=== PATIENT | female | born 1995 | race Caucasian/White ===

== ENCOUNTER 2022-06-02 07:12 | Outpatient (CLI) | payer BC, SELFPAY ==
--- NOTE | 2022-06-02 08:59 | W.ANESCHARGE ---
Anesthesia Charges Start Date/Time Anesthesia Start Date: 06/02/22 Anesthesia Start Time: 08:05 Stop Date/Time Anesthesia Stop Date: 06/02/22 Anesthesia Stop Time: 08:48 Summary Emergency: No
--- NOTE | 2022-06-02 09:45 | W.ANESCHARGE ---
Anesthesia Charges Start Date/Time Anesthesia Start Date: 06/02/22 Anesthesia Start Time: 08:05 Stop Date/Time Anesthesia Stop Date: 06/02/22 Anesthesia Stop Time: 08:48 Summary Emergency: No
== END 2022-06-02 07:13 | disposition home or self-care (01) ==
PROVIDERS: PCP Physician Assistant; Visit Provider Internal Medicine Gastroenterology
DX: R10.13 Epigastric pain (principal); K22.89 Other specified disease of esophagus; R19.7 Diarrhea, unspecified; R11.2 Nausea with vomiting, unspecified; K52.9 Noninfective gastroenteritis and colitis, unspecified
CPT/HCPCS: 00813; 43239; 45380; 88305; J2250; J2704

== ENCOUNTER 2022-10-24 15:13 | Emergency (ER) | payer BC, SELFPAY ==
[2022-10-24 15:26] VITALS: BP 126/70; PULSE 98; RESP 16; TEMP 37; O2SAT 99; BMI 27.4
--- NOTE | 2022-10-24 16:08 | ED_ITS ---
HPI - General Adult General Chief complaint: Abdominal Pain Stated complaint: Vomiting, diarrhea Time Seen by Provider: 10/24/22 15:19 Source: patient Mode of arrival: ambulatory Limitations: no limitations History of Present Illness HPI narrative: 26-year-old female with reported history of IBS and endoscopy and colonoscopy within the last 6 months presents to the emergency department with periumbilical abdominal pain for the last 15 hours. Has not use Tylenol or ibuprofen but did try dose of Pepcid and heating pad with limited improvement in her symptoms. She had vomiting last was about 3 hours ago. She has also been having watery diarrhea, no blood. No sick contacts, no recent antibiotic use. No pertinent travel. Pain is achy, did get a little bit better after she vomited. It seems worse with movement per her report. She is currently on her period, denies chance of . No gynecological symptoms, discharge or dysuria. This feels different than her typical abdominal symptoms. She reports that she does use marijuana almost daily. Had been off of it for about a month a couple of months ago but has resumed. Does not feel like this is really related to her abdominal symptoms. She also is a smoker. No known sick contacts. Past medical history she states is benign. She denies long-term chronic illness besides irritable bowel syndrome. Denies any prescription medicines, there are no medication allergies that she is sensitive to Lexapro and also bees as well as chocolate and nickel. Socially marijuana use and regular tobacco use. No pertinent travel. ROS notable for the GI symptoms as above, otherwise denies times 12 systems. Related Data Home Medications Medication Instructions Recorded Confirmed No Known Home Medications 10/24/22 10/24/22 Allergies Allergy/AdvReac Type Severity Reaction Status Date / Time bee venom protein (honey bee) Allergy Verified 06/02/22 09:46 chocolate flavor Allergy Verified 06/02/22 09:46 Lexapro Allergy Uncoded 06/02/22 09:46 Nickel Allergy Uncoded 06/02/22 09:46 [facility] Social History Smoking Status: Unknown if ever smoked Exam Const: Vital Signs, click to edit/add: Vital Signs - 24 hr 10/24/22 15:26 Temperature 98.6 F Pulse Rate [Right Pulse Oximeter] 98 Respiratory Rate 16 Blood Pressure [Ri ght Upper Arm] 126/70 Pulse Oximetry 99 Oxygen Delivery Me thod Room Air Documenting provider has reviewed patient's vital signs: yes Common normals: no apparent distress General appearance: cooperative and well kempt Other: Appears mildly uncomfortable, nontoxic. Good historian. HENMT: Common normals: normocephalic Head and scalp: normocephalic Face and sinus: normal facial exam Mouth: oral and palatal mucosa normal Throat: posterior oropharynx normal Eye: Common normals: conjunctivae normal General eye: normal appearance of both eyes Conjunctiva: conjunctiva(e) normal Neck & C-Spine: Common normals: full ROM and no lymphadenopathy Resp: Common normals: normal respiratory effort, no use of accessory muscles and clear to auscultation bilaterally Effort & inspection: able to speak in complete sentences Auscultation: clear to auscultation bilaterally Cardio: Common normals: regular rate, regular rhythm, S1 normal heart sound, S2 normal heart sound, no murmurs and peripheral pulses 2+ throughout Rate: regular rate Rhythm: regular rhythm Heart sounds: S1 normal and S2 normal Peripheral pulses: pulses 2+ throughout GI: Common normals: Normal to inspection, nondistended, normoactive bowel sounds present, soft to palpation, no hepatosplenomegaly and no masses Palpation: soft and no hepatosplenomegaly Other: Tender to suprapubic region, a little bit more on the right than the left but not really the right lower quadrant. There was certainly no rebound tenderness or guarding. : Common normals: no CVA tenderness Bladder/kidney exam: no CVA tenderness Back & Pelvis: Common normals: no CVA tenderness Extremity: Common normals: normal to inspection and no pedal edema Neuro: Common normals: moves all extremities and no focal motor deficits Speech: speech normal Psych: Appearance: well kempt Attitude: engaged Activity/motor behavior: appropriate eye contact Mood and affect: euthymic mood Insight: insight good Judgement: judgment good Skin: Common normals: no rashes or lesions noted General skin exam: no rashes or lesions noted Course Vital Signs Vital signs: Initial Vital Signs Temperature 98.6 F 10/24/22 15:26 Temperature Source Temporal Artery Scan 10/24/22 15:26 Pulse Rate 98 10/24/22 15:26 Pulse Rhythm Regular 10/24/22 15:26 Respiratory Rate 16 10/24/22 15:26 Blood Pressure 126/70 10/24/22 15:26 Blood Pressure Mean 88 10/24/22 15:26 Pulse Oximetry 99 10/24/22 15:26 Oxygen Delivery Method Room Air 10/24/22 15:26 Vital Signs Temperature 98.6 F 10/24/22 15:26 Pulse Rate 98 10/24/22 15:26 Respiratory Rate 16 10/24/22 15:26 Blood Pressure 126/70 10/24/22 15:26 Pulse Oximetry 99 10/24/22 15:26 Oxygen Delivery Method Room Air 10/24/22 15:26 Temperature 98.6 F 10/24/22 15:26 Pulse Rate 98 10/24/22 15:26 Respiratory Rate 16 10/24/22 15:26 Blood Pressure 126/70 10/24/22 15:26 Pulse Oximetry 99 10/24/22 15:26 Oxygen Delivery Method Room Air 10/24/22 15:26 Medical Decision Making MDM Narrative Medical decision making narrative: Differential diagnosis including IBS, more likely gastroenteritis, cannot exclude appendicitis, urethral stone or other similar etiology. Pain is not colicky in nature. A UA would be contaminated by menstrual flow and may not be helpful for interpretation for stone. Vomiting and diarrhea are more suggestive of viral infectious process. I would recommend that we start with symptomatic treatment with Imodium and Zofran as well as a L of IV fluids. If her symptoms improved markedly and her blood work is reassuring, we could probably defer on CT scan. If these are abnormal, would recommend CT. She was agreeable to this plan after discussion of the risks and benefits of radiation. Update: Zofran was very effective for nausea and vomiting. She did have 1 further episode of diarrhea shortly after the Imodium was given. Pain is not worsening. We discussed the lab findings, she is reassured by the normal blood counts. Together, we elect to do a dose of Toradol and then discharge home with further instructions on Imodium, Zofran and instructions regarding return alarm symptoms. Expect symptoms to last another 2-3 days, okay to use [id number] Tylenol and ibuprofen as well. Lab Data Lab results reviewed: Yes I reviewed the patient's lab results Lab results narrative: Reassuring Labs: Lab Results 10/24/22 Range/Units 16:20 WBC 5.34 (4.50-11.00) K/uL RBC 4.36 (4.00-5.20) m/uL Hgb 13.7 (12.0-16.0) gm/dL Hct 40.8 (33.0-51.0) % MCV 94 (80-100) fL MCH 31 (26-34) pg MCHC 34 (32-36) gm/dL RDW Coeff of Courtney 12.8 (11.5-15.5) % Plt Count 199 (140-440) K/uL Neut % (Auto) 72.4 H (42.0-72.0) % Lymph % (Auto) 15.4 L (20-44) % Hunt % (Auto) 9.7 (0.0-11.0) % Eos % (Auto) 2.1 (0.0-7.0) % Baso % (Auto) 0.4 (0.0-3.0) % Neut # (Auto) 3.90 (1.7-7.0) K/uL Lymph # (Auto) 0.80 L (0.90-2.90) K/uL Hunt # (Auto) 0.50 (0.00-0.90) K/UL Eos # (Auto) 0.11 (0.00-0.50) K/uL Baso # (Auto) 0.02 (0.00-0.30) K/uL Sodium 136 (135-149) mmol/L Potassium 3.7 (3.6-5.1) mmol/L Chloride 106 (96-114) mmol/L Carbon Dioxide 24 (20-32) mmol/L BUN 8 (5-24) mg/dL Creatinine 0.5 (0.5-1.5) mg/dL Estimated Creat Clear 173.51 Estimated GFR 133 ml/min Glucose 90 (60-115) mg/dL Calcium 8.7 (8.4-10.6) mg/dL Total Bilirubin 0.4 (0.1-1.5) mg/dL AST 29 (12-35) U/L ALT 53 H (4-35) U/L Alkaline Phosphatase 76 (40-150) U/L C-Reactive Protein 1.2 H (0.5-1.0) mg/dL Total Protein 7.5 (6.0-8.3) g/dL Albumin 4.3 (3.3-5.0) g/dL Lipase 30 (23-300) U/L HCG, Qual Negative (Negative) Discharge Plan Discharge Clinical Impression: Gastroenteritis Patient Disposition: Home w/ Parent or Adult Condition: Improved Instructions: Gastroenteritis (DC) Additional Instructions: As we discussed, your symptoms seem consistent with gastroenteritis. There are no signs of elevated white count, elevated inflammatory markers or other blood work that would make me think there are any severe illnesses right now. It is best to avoid radiation from a CT if we do not see any other signs of appendicitis or other very worrisome problems today. Your given Imodium, a common diarrhea medication. This does take some time to kick in. You may take an additional 2 mg dose with every bout of diarrhea, up to 12 tablets per day. For most people, the initial dose will slow things down considerably. I will also give a prescription for some Zofran, a, anti nausea medicine that you were given here in the ED. You may use this up to every 6 hours as needed for vomiting. For pain, I recommend Tylenol and ibuprofen. Tylenol 1 not upset your stomach. You may use a 1000 mg every 6 hours as needed. I am okay with you using ibuprofen. It is better if there is a little bit of food in your belly when you take it. The nausea medicine should help with this. Ibuprofen dosing is 600 mg every 6 hours as needed. If the pain becomes severe, he start running a fever, or things fail to have any improvement in 48 hours, I would recommend re-evaluation. Activity Level: Activity as Tolerated Discharge Diet: Regular Prescriptions: No Action No Known Home Medications Follow Up/Referrals: Veronica Richard PA [Primary Care Provider] - Stand Alone Forms: AddIn Social Info Instructions
[2022-10-24] MEDS: LACTATED RINGERS 1000 ML 1,000 ML IV (16:18)
[2022-10-24] MEDS: LOPERAMIDE HCL 2 MG CAPSULE 4 MG PO (16:18)
[2022-10-24] MEDS: ONDANSETRON 2 MG/ML inj 4 MG IVP (16:18)
[2022-10-24 16:25] LABS: Basophils Absolute Auto 0.02 K/uL (0.00-0.30); Basophils Percent Auto 0.4 % (0.0-3.0); Eosinophils Absolute Auto 0.11 K/uL (0.00-0.50); Eosinophils Percent Auto 2.1 % (0.0-7.0); Hematocrit 40.8 % (33.0-51.0); Hemoglobin* 13.7 gm/dL (12.0-16.0); Lymphocytes Percent Auto 15.4 % (20-44); Mean Corpuscular HGB Conc 34 gm/dL (32-36); Mean Corpuscular Hemoglobin 31 pg (26-34); Mean Corpuscular Volume 94 fL (80-100); Monocytes Percent Auto 9.7 % (0.0-11.0); Neutrophils Percent Auto 72.4 % (42.0-72.0); Platelet Count* 199 K/uL (140-440); RDW Coefficient of Variation % 12.8 % (11.5-15.5); Red Blood Count 4.36 m/uL (4.00-5.20); White Blood Count* 5.34 K/uL (4.50-11.00)
[2022-10-24 16:28] LABS: Slide Review Reflex No
[2022-10-24 16:40] LABS: Albumin* 4.3 g/dL (3.3-5.0); Chloride* 106 mmol/L (96-114); Potassium* 3.7 mmol/L (3.6-5.1); Sodium* 136 mmol/L (135-149)
[2022-10-24 16:42] LABS: Bilirubin Total* 0.4 mg/dL (0.1-1.5); Creatinine* 0.5 mg/dL (0.5-1.5); Est. Creatinine Clearance* 173.51; Estimated Glomerular Filt Rate 133 ml/min
[2022-10-24 16:43] LABS: Alanine Aminotransferase* 53 U/L (4-35); Alkaline Phosphatase* 76 U/L (40-150); Aspartate Amino Transferase* 29 U/L (12-35); Blood Urea Nitrogen* 8 mg/dL (5-24); Carbon Dioxide* 24 mmol/L (20-32); Glucose* 90 mg/dL (60-115); Lipase* 30 U/L (23-300); Total Protein* 7.5 g/dL (6.0-8.3)
[2022-10-24 16:44] LABS: Calcium* 8.7 mg/dL (8.4-10.6)
[2022-10-24 16:46] LABS: C Reactive Protein* 1.2 mg/dL (0.5-1.0)
[2022-10-24 16:54] LABS: HCG Qualitative* Negative (Negative)
[2022-10-24] MEDS: KETOROLAC 15 MG/ML inj IVP (17:01)
[2022-10-24 17:38] VITALS: BP 126/70; PULSE 98; RESP 16; TEMP 37
== END 2022-10-24 17:30 | disposition home or self-care (01) ==
PROVIDERS: Emergency Provider Family Medicine; PCP Physician Assistant
DX: K52.9 Noninfective gastroenteritis and colitis, unspecified (principal)
CPT/HCPCS: 36415; 80053; 83690; 84703; 85025; 86140; 96374; 96375; 99283; 99284; A9270; J1885; J2405; J7120

== ENCOUNTER 2022-11-28 10:45 | Outpatient (RCR) | payer BC, SELFPAY | END 2023-01-26 09:13 | disposition home or self-care (01) | PROVIDERS: PCP Physician Assistant; Visit Provider Student in an Organized Health Care Education/Training Program | DX: M54.9 Dorsalgia, unspecified (principal); Z51.89 Encounter for other specified aftercare | CPT/HCPCS: 97032; 97110; 97140; 97163 ==

== ENCOUNTER 2023-01-08 06:50 | Emergency (ER) | payer BC, SELFPAY ==
[2023-01-08 07:10] VITALS: BP 122/65; PULSE 83; RESP 20; TEMP 36.7; O2SAT 98; BMI 30.4
--- NOTE | 2023-01-08 07:31 | ED.GENADULT ---
HPI - General Adult General Chief complaint: Unspecified Complaint, Adult Stated complaint: post termination Time Seen by Provider: 01/08/23 07:20 Source: patient and family Mode of arrival: ambulatory History of Present Illness HPI narrative: 27-year-old female with history of prior that was also placed by nausea presents to the emergency department with intractable nausea and vomiting. She reports that she had a visit at [facility] in [place] yesterday, a termination clinic. She was given a medication in the office and then took her home dose yesterday as was scheduled. She reports that she is due to take another medication today at 11:00 a.m., she does not know which medication it is, I am assuming misoprostol by her description. She reports she had some mild nausea prior to the procedure, this was common for her in a previous as well. She reports no fever, there is no abdominal pain. She has had a little bit of uterine cramping but no bleeding. She does want to go through with the but is unsure how she will manage the severe nausea and vomiting for the next day. She is also having loose stools. Vomiting started about 3-1/2 hours ago. She did try taking a 4 mg Zofran tablet that she was provided by the clinic with no significant improvement in her symptoms. She reports that she has a history of irritable bowel syndrome and is prone to nausea. It looks like she has had prior GI workup including endoscopy in the past. She does regularly smoke marijuana and is a cigarette smoker as well. No bloody vomit. LMP November 24 Past medical history notable for irritable bowel syndrome. She reports that she is not currently taking any prescription medications. She has multiple allergies. These are reviewed. ROS is notable for the GI symptoms and generalized symptoms as above only, otherwise denies times 12 systems. Related Data Previous Rx's Medication Instructions Recorded ondansetron 4 mg disintegrating 4 mg PO Q8H PRN nausea and 10/24/22 tablet vomiting #10 tabs Allergies Allergy/AdvReac Type Severity Reaction Status Date / Time bee venom protein (honey bee) Allergy Verified 06/02/22 09:46 chocolate flavor Allergy Verified 06/02/22 09:46 lorazepam AdvReac Verified 01/08/23 07:12 Lexapro Allergy Uncoded 11/28/22 09:46 Nickel Allergy Uncoded 06/02/22 09:46 PFSH [facility] Social History Smoking Status: Unknown if ever smoked Exam Const: Vital Signs, click to edit/add: Vital Signs - 24 hr 01/08/23 07:10 Temperature 98.1 F Pulse Rate [Left P ulse Oximeter] 83 Respiratory Rate 20 Blood Pressure [Ri ght Upper Arm] 122/65 Pulse Oximetry 98 Oxygen Delivery Me thod Room Air Documenting provider has reviewed patient's vital signs: yes Other: Anxious, frequent retching. Tearful. HENMT: Common normals: normocephalic and head/scalp atraumatic Head and scalp: normocephalic and atraumatic Eye: Common normals: conjunctivae normal General eye: normal appearance of both eyes Conjunctiva: conjunctiva(e) normal Neck & C-Spine: Common normals: no lymphadenopathy Resp: Common normals: normal respiratory effort, no use of accessory muscles and clear to auscultation bilaterally Effort & inspection: able to speak in complete sentences Auscultation: clear to auscultation bilaterally Cardio: Common normals: regular rate, regular rhythm, S1 normal heart sound, S2 normal heart sound and no murmurs Rate: regular rate Rhythm: regular rhythm Heart sounds: S1 normal and S2 normal GI: Common normals: Normal to inspection, nondistended, normoactive bowel sounds present, soft to palpation, non-tender, no hepatosplenomegaly and no masses Palpation: soft and no hepatosplenomegaly Extremity: Common normals: normal to inspection and no pedal edema Neuro: Gait (neuro): normal gait Motor exam: strength 5/5 throughout and no tremor noted Psych: Common normals: thought process normal Attitude: engaged Activity/motor behavior: appropriate eye contact Mood and affect: anxious Thought process: normal thought process Insight: insight good Judgement: judgment good Skin: Common normals: no rashes or lesions noted General skin exam: no rashes or lesions noted Course Course Hospital Course: No obvious signs of clinical dehydration, no hypotension or tachycardia. Etiology is very likely medication induced, she agrees. We discussed doing blood workup including workup for pancreatitis, gallbladder disease, etc.. We both agree that this is likely not necessary as she has an obvious etiology for her symptoms. She is planning to go through with the next dose of termination medication. This is important as it does widen our scope of safe medications to use to help treat the nausea. She will be given a L of LR, 4 mg of IV Zofran and 0.5 mg of IV lorazepam and we will reassess. Reevaluation(s) Time of Reevaluation #1: 08:16 Reevaluation #1: Heading over care to day shift partner. Awaiting clinical response from fluids, Zofran, Ativan. Vital Signs Vital signs: Initial Vital Signs Temperature 98.1 F 01/08/23 07:10 Temperature Source Temporal Artery Scan 01/08/23 07:10 Pulse Rate 83 01/08/23 07:10 Respiratory Rate 20 01/08/23 07:10 Blood Pressure 122/65 01/08/23 07:10 Blood Pressure Mean 84 01/08/23 07:10 Blood Pressure Position Sitting 01/08/23 07:10 Pulse Oximetry 98 01/08/23 07:10 Oxygen Delivery Method Room Air 01/08/23 07:10 Vital Signs Temperature 98.1 F 01/08/23 07:10 Pulse Rate 83 01/08/23 07:10 Respiratory Rate 20 01/08/23 07:10 Blood Pressure 122/65 01/08/23 07:10 Pulse Oximetry 98 01/08/23 07:10 Oxygen Delivery Method Room Air 01/08/23 07:10 Temperature 98.1 F 01/08/23 07:10 Pulse Rate 83 01/08/23 07:10 Respiratory Rate 20 01/08/23 07:10 Blood Pressure 122/65 01/08/23 07:10 Pulse Oximetry 98 01/08/23 07:10 Oxygen Delivery Method Room Air 01/08/23 07:10 Discharge Plan Discharge Prescriptions: No Action ondansetron 4 mg tablet,disintegrating 4 mg PO Q8H PRN (Reason: nausea and vomiting) Qty: 10 0RF Follow Up/Referrals: Veronica Richard PA [Referring] -
[2023-01-08] MEDS: ONDANSETRON 2 MG/ML inj 4 MG IVP (07:56)
[2023-01-08] MEDS: LACTATED RINGERS 1000 ML 1,000 ML IV (07:56)
[2023-01-08] MEDS: LORazepam 2 MG/ML inj 0.5 MG IVP (07:56)
[2023-01-08] MEDS: PANTOPRAZOLE SODIUM 40 MG INJ IVP (07:56)
--- NOTE | 2023-01-08 08:00 | ED.NURSE ---
Patient stated she has an allergy to lorazepam. MD ordered Lorazepam. Patient stated last time she took it, she felt dizzy. MD was okay with patient having. Patient agreed to have it as well.
[2023-01-08 08:23] VITALS: BP 108/60; PULSE 74; RESP 16; O2SAT 99
== END 2023-01-08 08:50 | disposition home or self-care (01) ==
PROVIDERS: Emergency Provider Emergency Medicine; PCP Student in an Organized Health Care Education/Training Program
DX: R11.0 Nausea (principal); O04.89 (Induced) termination of pregnancy with other complications
CPT/HCPCS: 96374; 96375; 99283; C9113; J2060; J2405; J7120

== ENCOUNTER 2023-03-15 06:30 | Emergency (ER) | payer BC, SELFPAY ==
--- NOTE | 2023-03-15 06:39 | ED_ITS ---
HPI - Alcohol General Chief Complaint: Alcohol/Intoxication Stated Complaint: drank last night- cant keep anything down Time Seen by Provider: 03/15/23 06:31 History of Present Illness HPI narrative: Patient is a 27-year-old woman who presents 640 in the morning after a night of drinking alcohol. She used marijuana last night as well. She states she is very dizzy and nauseous. She feels extremely dehydrated. She has no chest pain shortness a breath orthopnea no PND no abdominal pain. She is currently having her menses is having no other urogenital symptoms. Patient does not have any recent history of any trauma or falls. She states that she would like some IV fluids. No fever has been noted. Related Data Previous Rx's Medication Instructions Recorded ondansetron 4 mg disintegrating 4 mg PO Q8H PRN nausea and 10/24/22 tablet vomiting #10 tabs Allergies Allergy/AdvReac Type Severity Reaction Status Date / Time bee venom protein (honey bee) Allergy Verified 06/02/22 09:46 chocolate flavor Allergy Verified 06/02/22 09:46 lorazepam AdvReac Verified 01/08/23 07:12 Lexapro Allergy Uncoded 06/02/22 09:46 Nickel Allergy Uncoded 06/02/22 09:46 Review of Systems Status of ROS Reports: 10 or more systems reviewed and unremarkable except as noted in History and below [facility] Social History Smoking Status: Current every day smoker What tobacco products do you use: cigarettes Smoking packs per day: 0.25 Smoking cigarettes per day: 5.0 Do you use any of these nicotine containing products: Vaping Products Second hand tobacco smoke exposure: No How often do you have a drink containing alcohol: 2-4 times a month How many standard drinks containing alcohol do you have on a typical day: 3 or 4 How often do you have six or more drinks on one occasion: Never AUDIT-C Alcohol total score: 3 Non-prescribed substance use: marijuana (any form) service: No Exam Narrative: Exam Narrative: EXAM GENERAL: Patient appears comfortable and well. EYES: No scleral icterus. LYMPH: No supraclavicular or cervical lymphadenopathy. SKIN: Visible skin seen during exam normal or with benign process only. EXT: No dependent lower extremity pedal edema. HEART: Regular rate and rhythm with no murmurs, rubs, or gallops. LUNGS: Clear to auscultation bilaterally with no crackles or wheezes. ABD: Soft, non tender, non distended. PSYCH: Good eye contact, speech is not pressured. Const: Vital Signs, click to edit/add: Vital Signs - 24 hr 03/15/23 06:40 Temperature 97.8 F Pulse Rate [Pulse Oximeter] 80 Respiratory Rate 22 Blood Pressure [Ri ght Upper Arm] 111/67 Pulse Oximetry 98 Oxygen Delivery Me thod Room Air Course Course ED Course: Patient seen and examined. CBC comprehensive metabolic panel ETOH UA ordered. 1 L of normal saline 4 mg of IV Zofran ordered. Vital Signs Vital signs: Initial Vital Signs Temperature 97.8 F 03/15/23 06:40 Temperature Source Temporal Artery Scan 03/15/23 06:40 Pulse Rate 80 03/15/23 06:40 Respiratory Rate 22 03/15/23 06:40 Blood Pressure 111/67 03/15/23 06:40 Blood Pressure Mean 81 03/15/23 06:40 Blood Pressure Position Sitting 03/15/23 06:40 Pulse Oximetry 98 03/15/23 06:40 Oxygen Delivery Method Room Air 03/15/23 06:40 Vital Signs Temperature 97.8 F 03/15/23 06:40 Pulse Rate 80 03/15/23 06:40 Respiratory Rate 22 03/15/23 06:40 Blood Pressure 111/67 03/15/23 06:40 Pulse Oximetry 98 03/15/23 06:40 Oxygen Delivery Method Room Air 03/15/23 06:40 Temperature 97.8 F 03/15/23 06:40 Pulse Rate 80 03/15/23 06:40 Respiratory Rate 22 03/15/23 06:40 Blood Pressure 111/67 03/15/23 06:40 Pulse Oximetry 98 03/15/23 06:40 Oxygen Delivery Method Room Air 03/15/23 06:40 MDM - Alcohol MDM Narrative Medical decision making narrative: Patient is a 27-year-old woman who unfortunately is having significant nausea and vomiting the morning after a night of drinking alcohol and smoking marijuana. She who was treated with normal saline Zofran. Labs are reassuring. At this point were planning for a 2 L of normal saline and she will be checked on by my colleague. Likely be able to discharge home at that time. Differential Diagnosis Differential diagnosis: Likely alcohol withdrawal delirium, alcohol intoxication and alcohol withdrawal syndrome Lab Data Labs: Lab Results 03/15/23 Range/Units 06:40 WBC 7.39 (4.50-11.00) K/uL RBC 3.98 L (4.00-5.20) m/uL Hgb 12.8 (12.0-16.0) gm/dL Hct 37.5 (33.0-51.0) % MCV 94 (80-100) fL MCH 32 (26-34) pg MCHC 34 (32-36) gm/dL RDW Coeff of Courtney 12.8 (11.5-15.5) % Plt Count 208 (140-440) K/uL Neut % (Auto) 53.5 (42.0-72.0) % Lymph % (Auto) 34.0 (20-44) % [place] % (Auto) 8.9 (0.0-11.0) % Eos % (Auto) 2.7 (0.0-7.0) % Baso % (Auto) 0.8 (0.0-3.0) % Neut # (Auto) 3.95 (1.7-7.0) K/uL Lymph # (Auto) 2.51 (0.90-2.90) K/uL [place] # (Auto) 0.70 (0.00-0.90) K/UL Eos # (Auto) 0.20 (0.00-0.50) K/uL Baso # (Auto) 0.06 (0.00-0.30) K/uL Abs Immat Gran (auto) 0.01 (0.00-0.30) K/uL Imm/Tot Granulo (auto) 0.1 % Sodium 141 (135-149) mmol/L Potassium 4.0 (3.6-5.1) mmol/L Chloride 107 (96-114) mmol/L Carbon Dioxide 23 (20-32) mmol/L Anion Gap 11 (7-15) mEq/L BUN 11 (5-24) mg/dL Creatinine 0.6 (0.5-1.5) mg/dL Estimated Creat Clear 143.33 Estimated GFR 127 ml/min Glucose 90 (60-115) mg/dL Calcium 9.6 (8.4-10.6) mg/dL Total Bilirubin 0.4 (0.1-1.5) mg/dL AST 30 (12-35) U/L ALT 24 (4-35) U/L Alkaline Phosphatase 64 (40-150) U/L Total Protein 8.0 (6.0-8.3) g/dL Albumin 4.5 (3.3-5.0) g/dL Discharge Plan Discharge Clinical Impression: Alcoholic intoxication Patient Disposition: Home, Self-Care Condition: Stable Instructions: Alcohol Intoxication (ED) Activity Level: No Restrictions Discharge Diet: Regular Prescriptions: No Action ondansetron 4 mg tablet,disintegrating 4 mg PO Q8H PRN (Reason: nausea and vomiting) Qty: 10 0RF Follow Up/Referrals: DIANE COLE DO [Primary Care Provider] - Stand Alone Forms: MyHealth Info Instructions
[2023-03-15 06:40] VITALS: BP 111/67; PULSE 80; RESP 22; TEMP 36.6; O2SAT 98; BMI 28.9
[2023-03-15] MEDS: ONDANSETRON 2 MG/ML inj 4 MG IVP (06:47)
[2023-03-15] MEDS: 0.9 % SODIUM CHLORIDE 1000 ml 1,000 ML IV (06:47)
[2023-03-15 06:53] LABS: Basophils Absolute Auto 0.06 K/uL (0.00-0.30); Basophils Percent Auto 0.8 % (0.0-3.0); Eosinophils Percent Auto 2.7 % (0.0-7.0); Hematocrit 37.5 % (33.0-51.0); Hemoglobin* 12.8 gm/dL (12.0-16.0); Immature Granulocytes Abs Auto 0.01 K/uL (0.00-0.30); Immature Granulocytes Pct Auto 0.1 %; Lymphocytes Absolute Auto 2.51 K/uL (0.90-2.90); Mean Corpuscular HGB Conc 34 gm/dL (32-36); Mean Corpuscular Hemoglobin 32 pg (26-34); Mean Corpuscular Volume 94 fL (80-100); Monocytes Percent Auto 8.9 % (0.0-11.0); Neutrophils Absolute Auto 3.95 K/uL (1.7-7.0); Neutrophils Percent Auto 53.5 % (42.0-72.0); Platelet Count* 208 K/uL (140-440); RDW Coefficient of Variation % 12.8 % (11.5-15.5); Red Blood Count 3.98 m/uL (4.00-5.20); White Blood Count* 7.39 K/uL (4.50-11.00)
[2023-03-15 06:57] LABS: Slide Review Reflex No
[2023-03-15 07:27] LABS: Chloride* 107 mmol/L (96-114); Sodium* 141 mmol/L (135-149)
[2023-03-15 07:28] LABS: Alanine Aminotransferase* 24 U/L (4-35); Albumin* 4.5 g/dL (3.3-5.0); Alkaline Phosphatase* 64 U/L (40-150); Anion Gap 11 mEq/L (7-15); Aspartate Amino Transferase* 30 U/L (12-35); Bilirubin Total* 0.4 mg/dL (0.1-1.5); Blood Urea Nitrogen* 11 mg/dL (5-24); Calcium* 9.6 mg/dL (8.4-10.6); Carbon Dioxide* 23 mmol/L (20-32); Creatinine* 0.6 mg/dL (0.5-1.5); Est. Creatinine Clearance* 143.33; Estimated Glomerular Filt Rate 127 ml/min; Glucose* 90 mg/dL (60-115)
[2023-03-15 08:00] LABS: Appearance Urine Clear (Clear); Bilirubin Urine Negative (Negative); Blood Urine 2+ (Negative); Color Urine Yellow (Yellow); Glucose Urine Negative (Negative); Ketones Urine Negative (Negative); Leukocyte Esterase Urine Trace (Negative); Nitrite Urine Negative (Negative); Protein Urine Trace (Negative); Specific Gravity Urine 1.015 (1.000-1.030); Urobilinogen Urine 0.2 (0.2-1.0); pH Urine 8.5 (5.0-8.5)
[2023-03-15 08:02] VITALS: BP 112/74; PULSE 88; RESP 24; O2SAT 99
[2023-03-15] MEDS: HALOPERIDOL 5 MG/ML INJ IV (08:16)
[2023-03-15 08:17] LABS: Amorphous Sediment Urine Few; Bacteria Urine Few; Squamous Epithelial Cell Urine Few (None-Few); WBC Urine 0-2 (0-5)
[2023-03-15 08:30] VITALS: BP 124/63; PULSE 90; RESP 26; O2SAT 99
[2023-03-15 08:30] LABS: Ethanol* < 0.01 % (0.01-0.03)
[2023-03-15 09:00] VITALS: BP 115/60; PULSE 80; RESP 20; O2SAT 100
== END 2023-03-15 09:07 | disposition home or self-care (01) ==
PROVIDERS: Emergency Provider Internal Medicine; PCP Student in an Organized Health Care Education/Training Program
DX: F10.129 Alcohol abuse with intoxication, unspecified (principal)
CPT/HCPCS: 36415; 80053; 81003; 81015; 82077; 85025; 87086; 87186; 96361; 96374; 96375; 99283; 99284; J1630; J2405; J7030

== ENCOUNTER 2023-10-15 05:51 | Emergency (ER) | payer BC, SELFPAY ==
[2023-10-15 06:03] VITALS: BP 118/84; PULSE 89; RESP 20; TEMP 36.8; O2SAT 99; BMI 30.4
[2023-10-15 06:33] LABS: Ur HCG Qualitative* POSITIVE (Negative)
[2023-10-15] MEDS: PANTOPRAZOLE SODIUM 40 MG INJ IVP (06:44)
[2023-10-15] MEDS: 0.9 % SODIUM CHLORIDE 1000 ml 1,000 ML IV (06:44)
--- NOTE | 2023-10-15 06:54 | ED_ITS ---
HPI - Nausea/Vomiting/Diarrhea General Chief complaint: Nausea/Vomiting Stated complaint: 6 weeks , vomiting, dizzy Time Seen by Provider: 10/15/23 05:57 Source: patient Mode of arrival: ambulatory Limitations: no limitations History of Present Illness HPI Narrative: 27-year-old female presents the emergency department for evaluation of vomiting in early . Reports that she has chronic nausea and is a daily marijuana user. She thinks that she is getting dehydrated, feels lightheaded and slightly dizzy. No fever. No trauma or injury. No neurological changes otherwise. She reports that she has had 2 prior pregnancies, both electively terminated. This current is a planned . She had her OB intake yesterday, reports that labs were drawn. She sees her provider in 2 we eks. She has a supply of Zofran from previous chronic nausea and vomiting episodes. She tried taking 1 at 2:00 a.m. and then another at 3:15 a.m. with no significant improvement in her symptoms. Can not hold anything down, even water. Has tried lizbeth and this was also ineffective. No vaginal bleeding. No fever abdominal pain. She is using famotidine daily as well. Has not yet been prescribed any other medications to help prevent vomiting in . She states that ?the medications for marijuana nausea have never worked for her?. I do not have documented evidence that she has or has not responded to atypical antipsychotics or other similar agents. Past medical history notable for chronic nausea and she says suspects that she may have POTS, but has not had any confirmatory testing. Regularly uses marijuana and nicotine. ROS notable for the GI, dizziness and fatigue as described above, otherwise denies times 12 systems. Related Data Home Medications Medication Instructions Recorded Confirmed cholecalciferol (vitamin D3) 50 50 mcg PO DAILY 10/15/23 10/15/23 mcg (2,000 unit) capsule epinephrine 0.3 mg/0.3 mL 0.3 mg IM PRN allergies 10/15/23 10/15/23 injection, auto-injector famotidine 40 mg tablet 40 mg PO DAILY 10/15/23 10/15/23 Previous Rx's Medication Instructions Recorded doxylamine 10 mg-pyridoxine (vit 1 tab PO BID #60 tabs 10/15/23 B6) 10 mg tablet,delayed release ondansetron 4 mg disintegrating 4 mg PO Q8H PRN nausea and 10/15/23 tablet vomiting #30 tabs Allergies Allergy/AdvReac Type Severity Reaction Status Date / Time bee venom protein (honey bee) Allergy Severe Anaphylaxis Verified 10/15/23 06:10 chocolate flavor Allergy Intermediate Throat Verified 10/15/23 06:10 Swelling escitalopram [From Lexapro] Allergy Mild Hives Verified 10/15/23 06:09 nickel Allergy Mild Hives Verified 10/15/23 06:11 lorazepam AdvReac Mild Unknown Verified 10/15/23 06:12 [facility] Medical History Irritable bowel syndrome with both constipation and diarrhea ?K58.2 - Mixed irritable bowel syndrome (ICD-10) Migraine headache ?G43.909 - Migraine, unspecified, not intractable, without status migrainosus (ICD-10) Marijuana use ?F12.90 - Cannabis use, unspecified, uncomplicated (ICD-10) Herpes ?B00.9 - Herpesviral infection, unspecified (ICD-10) Depression ?F32.A - Depression, unspecified (ICD-10) Asthma ?J45.909 - Unspecified asthma, uncomplicated (ICD-10) Anxiety ?F41.9 - Anxiety disorder, unspecified (ICD-10) Surgical History History of esophagogastroduodenoscopy (EGD) ?Z98.890 - Other specified postprocedural states (ICD-10) History of colonoscopy ?Z98.890 - Other specified postprocedural states (ICD-10) Social History Smoking Status: Current some day smoker What tobacco products do you use: cigarettes Smoking packs per day: 0.25 Smoking cigarettes per day: 5.0 Do you use any of these nicotine containing products: Vaping Products Second hand tobacco smoke exposure: Yes How often do you have a drink containing alcohol: never How many standard drinks containing alcohol do you have on a typical day: 3 or 4 AUDIT-C Alcohol total score: 1 Non-prescribed substance use: marijuana (any form) service: No Exam Const: Vital Signs, click to edit/add: Vital Signs - 24 hr 10/15/23 06:03 Temperature 98.3 F Pulse Rate [Right Pulse Oximeter] 89 Respiratory Rate 20 Blood Pressure [Ri ght Upper Arm] 118/84 Pulse Oximetry 99 Oxygen Delivery Me thod Room Air Documenting provider has reviewed patient's vital signs: yes Common normals: alert Other: Frequent retching but good insight. Polite and conversational. HENMT: Common normals: normocephalic and oropharynx normal Head and scalp: normocephalic Other: Mucous membranes dry but no pallor. Eye: Common normals: conjunctivae normal General eye: normal appearance of both eyes Conjunctiva: conjunctiva(e) normal Resp: Common normals: normal respiratory effort and clear to auscultation bilaterally Effort & inspection: able to speak in complete sentences Auscultation: clear to auscultation bilaterally Cardio: Common normals: regular rate, regular rhythm, S1 normal heart sound, S2 normal heart sound and no murmurs Rate: regular rate Rhythm: regular rhythm Heart sounds: S1 normal and S2 normal GI: Common normals: Normal to inspection, nondistended, normoactive bowel sounds present, soft to palpation, non-tender, no hepatosplenomegaly and no masses Palpation: soft and no hepatosplenomegaly Neuro: Sensorium/orientation: alert Speech: speech normal Motor exam: no movement abnormalities noted Psych: Appearance: grossly normal Attitude: engaged Insight: insight good Judgement: judgment good Skin: Common normals: no rashes or lesions noted General skin exam: no rashes or lesions noted Course Course ED Course: Chronic nausea and vomiting, now in early . Suspect that this is going to be a long few months for her. Reports that her labs yesterday were normal. These must have been drawn Gabriella li, I do not have access to these. She is afebrile, not tachycardic or hypotensive. I do not recommend that we repeat these labs. Will start normal saline. She has already had 8 mg of Zofran, I do not think giving an additional IV dose will be beneficial. Will give 10 of Reglan, 40 of Protonix and then a L of LR. Will prescribe doxylamine/B 6 at discharge and some additional Zofran. She is encouraged to get in with her primary provider sooner to discuss ongoing nausea and vomiting if her symptoms have not markedly improved by Thursday. She may require infusion center for regular IV fluids. Less likely gastroenteritis which would certainly resolve within a few days. I am hopeful that this is the case for her. Typical alarm symptoms reviewed that would warrant ED presentation, typical early warnings. Follow-up with primary care provider as soon as possible to discuss long-term plan and especially if the doxylamine/B 6 is not covered by her insurance. Reevaluation(s) Time of Reevaluation #1: 08:00 Reevaluation #1: Patient still having vomiting. Did not respond to Zofran, Reglan, fluids, omeprazole. She took the fluids well and is not showing tachycardia or hyper bow tension. Unfortunately, as I counseled her, she may continue to have nausea and vomiting and she will need to make a long-term plan with her Ob provider regarding management of this throughout the . Continue trying to push fluids follow-up in the emergency department as needed if she is unable to tolerate fluids for more than 24 hours. Vital Signs Vital signs: Initial Vital Signs Temperature 98.3 F 10/15/23 06:03 Temperature Source Temporal Artery Scan 10/15/23 06:03 Pulse Rate 89 10/15/23 06:03 Respiratory Rate 20 10/15/23 06:03 Blood Pressure 118/84 10/15/23 06:03 Blood Pressure Mean 95 10/15/23 06:03 Blood Pressure Position Sitting 10/15/23 06:03 Pulse Oximetry 99 10/15/23 06:03 Oxygen Delivery Method Room Air 10/15/23 06:03 Vital Signs Temperature 98.3 F 10/15/23 06:03 Pulse Rate 89 10/15/23 06:03 Respiratory Rate 20 10/15/23 06:03 Blood Pressure 118/84 10/15/23 06:03 Pulse Oximetry 99 10/15/23 06:03 Oxygen Delivery Method Room Air 10/15/23 06:03 Temperature 98.3 F 10/15/23 06:03 Pulse Rate 89 10/15/23 06:03 Respiratory Rate 20 10/15/23 06:03 Blood Pressure 118/84 10/15/23 06:03 Pulse Oximetry 99 10/15/23 06:03 Oxygen Delivery Method Room Air 10/15/23 06:03 Medications Administered Medications: Discontinued Medications Generic Name Dose Route Start Last Admin Trade Name Freq PRN Reason Stop Dose Admin Sodium Chloride 1,000 mls @ 1,000 mls/hr 10/15/23 06:24 10/15/23 06:44 0.9 % Sodium Chloride 1000 Ml IV 10/15/23 07:23 1,000 mls/hr .Q1H ASTRID Administration Metoclopramide HCl 10 mg/ 102 mls @ 306 mls/hr 10/15/23 06:57 10/15/23 07:07 Sodium Chloride IVPB 10/15/23 06:58 306 mls/hr ONCE ONE Administration Lactated Ringer's 1,000 mls @ 1,000 mls/hr 10/15/23 06:59 10/15/23 07:30 Lactated Ringers 1000 Ml IV 10/15/23 07:58 1,000 mls/hr .Q1H ONE Administration Pantoprazole Sodium 40 mg 10/15/23 06:37 10/15/23 06:44 Pantoprazole Sodium 40 Mg Inj IVP 10/15/23 06:38 40 mg ONCE ONE Administration MDM - Nausea/Vomiting/Diarrhea Medical Records Attestation: I reviewed the patient's medical records. Lab Data Attestation: I reviewed the patient's lab results. Lab results narrative: test positive as expected Labs: Lab Results 10/15/23 Range/Units 06:25 Urine HCG, Qual POSITIVE H (Negative) Discharge Plan Discharge Clinical Impression: Vomiting during Patient Disposition: Home w/ Parent or Adult Condition: Stable Instructions: Nausea and Vomiting in (ED) Additional Instructions: As we discussed, I suspect that your per early is worsening your already existing chronic nausea and vomiting. I hope this is just a stomach flu but I am more concerned that this will be an ongoing issue for you for the next couple of months. Your given IV fluid, Reglan and Protonix in the emergency department today. I think it is important that we start a long-term plan to help you manage dehydration and nutrition. I have prescribed doxylamine/vitamin B6. This is a very safe medication that is often prescribed as a nausea and vomiting preventer in . It may cause some sleepiness. I have prescribed twice daily but you may find that it makes you too sleepy and you can only tolerate taking it at night. Once daily is better than nothing. If you still have vomiting, you may use Zofran up to 3 tablets daily. Continue taking your famotidine. cupola patcher some [id number] omeprazole and take this once daily also. If you take your famotidine in the morning, take your omeprazole and night, try to stagger these. I do not recommend any nicotine or marijuana products in . They are unlikely to help your nausea. Please make a follow-up appointment with your primary care provider right away to discuss options for managing your nausea and vomiting or a plan for outpatient IV fluids if this is required. If you have bloody vomit, bloody stools, heavy vaginal bleeding or severe weakness, you should come back to the emergency room. Activity Level: Activity as Tolerated Discharge Diet: Regular Prescriptions: New doxylamine-pyridoxine (vit B6) 10-10 mg tablet,delayed release (DR/EC) 1 tab PO BID Qty: 60 1RF ondansetron 4 mg tablet,disintegrating 4 mg PO Q8H PRN (Reason: nausea and vomiting) Qty: 30 1RF No Action famotidine 40 mg tablet 40 mg PO DAILY epinephrine 0.3 mg/0.3 mL auto-injector 0.3 mg IM PRN cholecalciferol (vitamin D3) 50 mcg (2,000 unit) capsule 50 mcg PO DAILY Follow Up/Referrals: DIANE COLE DO [Primary Care Provider] - Stand Alone Forms: [employer] Info Instructions
[2023-10-15] MEDS: METOCLOPRAMIDE HCL 10 MG in 0.9 % SODIUM CHLORIDE 100 ml 100 ML 306 MG IVPB (07:07)
--- OUTSIDE RECORDS SUMMARY | 2023-10-15 07:20 | XMS_ITS | Referral Summary ---
Author Name Unknown Organization [facility] Address [address] [place] [address]. [place] [address] Care Team Providers Care Communications Officer Name Role Phone Clinic, [facility] Primary Care Provider Allergies Active Allergy Reactions Criticality Noted Date Comments Nickel Hives 01/27/2020 Medications Medication Sig Dispensed Refills Start Date End Date Status EPINEPHrine (ANY BX GENERIC EQUIV) 0.3 MG/0.3ML injection 2-pack Inject 0.3 mLs (0.3 mg) into the muscle once as needed for anaphylaxis 1 each 1 01/27/2020 Active predniSONE (DELTASONE) 20 MG tablet Take two tablets (= 40mg) each day for 5 (five) days 10 tablet 01/27/2020 Active Social History Tobacco Use Types Packs/Day Years Used Date Smoking Tobacco: Never Assessed Adolescent Education Answer Date Record ed Getting School Help Needed Not on file 03/28 Sex and Gender Information Value Date Recorded Sex Assigned at Not on file Gender Identity Not on file Sexual Orientation Not on file Last Filed Vital Signs Vital Sign Reading Time Taken Comments Blood Pressure 133/86 01/28/2023 2:25 PM CDT Pulse 82 01/28/2023 2:25 PM CDT Temperature 36.6 ??C (97.9 ??F) 01/28/2023 10:28 AM C DT Respiratory Rate 20 01/28/2023 10:28 AM CDT Oxygen Saturation 100% 01/28/2023 3:09 PM CDT Inhaled Oxygen Concentration - - Weight 70.3 kg (155 lb) 01/27/2020 12:06 PM CDT Height 172.7 cm (5' 8) 01/27/2020 12:06 PM CDT Body Mass Index 23.57 01/27/2020 12:06 PM CDT Plan of Treatment Not on file Care Teams Communications Officer Relationship Specialty Start Date End Date Clinic, [facility] [address] [place] [address] PCP - General 01/27/20
--- OUTSIDE RECORDS SUMMARY | 2023-10-15 07:20 | XMS_ITS | Clinical Summary ---
Author Name Unknown Organization [facility] Address [address] [place] [address]. [place] [address] Care Team Providers Care Orthodontist Assistant Name Role Phone Clinic, [facility] Primary Care Provider Allergies Active Allergy Reactions [...] 01/27/2020 12:06 PM CDT Plan of Treatment Health Maintenance Due Date Last Done Comments ADVANCE CARE PLANNING 1996 ANNUAL REVIEW OF HM ORDERS 1996 YEARLY PREVENTIVE VISIT 1996 HIV SCREENING 12/02/2011 HPV IMMUNIZATION (1 - 3-dose series) 12/02/2011 HEPATITIS C SCREENING 2014 PAP 2017 COVID-19 Vaccine (3 - season) 2023 11/29/2020, 11/01/2020 INFLUENZA VACCINE (#1) 2023 PHQ-2 (once per calendar year) 2023 DTAP/TDAP/TD IMMUNIZATION (8 - Td or Tdap) 06/14/2029 06/14/2019, 02/26/2009, 02/21/2002, Additional history exists HEPATITIS B IMMUNIZATION Completed 998, 04/07/1997, 02/03/1997 IPV IMMUNIZATION Completed 02/21/2002, 09/1996, 04/07/1997, Additional history exists MENINGITIS IMMUNIZATION Aged Out No l onger eligible based on patient's age to complete this topic Pneumococcal Vaccine: Pediatrics (0 to 5 Years) and At-Risk Patients (6 to 64 Years) Aged Out No longer eligible based on patient's age to complete this topic RSV MONOCLONAL ANTIBODY Aged Out No l onger eligible based on patient's age to complete this topic Care Teams Orthodontist Assistant Relationship Specialty Start Date End Date [facility], [address] [address] PCP - General 01/27/20
--- OUTSIDE RECORDS SUMMARY | 2023-10-15 07:20 | XMS_ITS | Clinical Summary ---
Author Name Unknown Organization [facility] Address [place], [place] [address] Care Team Providers Care Maintenance Operator Name Role Phone [facility] Primary Care Provider Unavail able Allergies Active Allergy Reactions Criticality Noted Date Comments Bee Venom Protein (Honey Bee) Throat Swelling/Closing High 09/06/2021 Chocolate Flavor Nausea And Vomiting,Throat Swelling/Closing High 08/27/2018 Escitalopram Anxiety 02/11/2022 Possible hives Nickel Rash 08/27/2018 Medications Medication Sig Dispensed Refills Start Date End Date Status hydrOXYzine HCL (ATARAX) 25 mg tabletIndications:G eneralized anxiety disorder Take 1 Tablet (25 mg) by mouth every 8 hours if needed for Anxiety. 30 Tablet 4 Active Additional Information Patient not taking.Reported on 10/12/2023 busPIRone (BUSPAR) 5 mg tabletIndications:G eneralized anxiety disorder Take 1 Tablet (5 mg) by mouth two times daily for 14 days, THEN 2 Tablets (10 mg) two times daily. 388 Tablet 4 12/14/19 24 Active Additional Information Patient not taking.Reported on 10/12/2023 EPINEPHrine (EPIPEN) 0.3 mg/0.3 mL auto-injectorIndica tions:Anaphylaxis, sequela Inject 0.3 mg intramuscular each time if needed for Allergic Reaction. 2 Each 4 Active Additional Information Patient not taking.Reported on 10/12/2023 cholecalciferol, Vitamin D3, (Vitamin D-3) 5,000 unit tab tabletIndications:V itamin D deficiency Take 1 Tablet (5,000 units) by mouth once daily. 90 Tablet 3 4 Active ondansetron (ZOFRAN ODT) 4 mg disintegrating tabletIndications:M igraine syndrome Place 1 Tablet (4 mg) on the tongue every 8 hours if needed for Nausea/Vomiting. 30 Tablet 4 Active famotidine (PEPCID) 40 mg tabletIndications:N ausea Take 1 Tablet (40 mg) by mouth once daily. 90 Tablet 3 4 Active Additional Information Patient not taking.Reported on 10/12/2023 medication order composer Vitamin d3 2000 unit capsules 4 Active etonogestreL-ethiny l estradioL (NUVARING) vaginal ring Insert 1 ring into the vagina every 4 weeks. Insert 1 ring vaginally and leave in place for 3 consecutive weeks, then remove for 1 week. Repeat with new ring. 3 ring 3 0 10/14/19 24 Discontinu ed(*Patien t states no longer taking) cyclobenzaprine (FLEXERIL) 10 mg tablet Take 10 mg by mouth 3 times daily if needed. 2 10/01/19 24 Discontinu ed(Reorder (E-cancel not sent)) meclizine (ANTIVERT) 25 mg tabletIndications:B enign paroxysmal positional vertigo, unspecified laterality Take 1 Tablet (25 mg) by mouth 3 times daily if needed for Vertigo. 30 Tablet 2 10/14/19 24 Discontinu ed(*Patien t states no longer taking) triamcinolone (ARISTOCORT; KENALOG) 0.1 % creamIndications:Ra sh Apply topically to affected area(s) three times daily. 80 g 2 10/14/19 24 Discontinu ed(*Patien t states no longer taking) polyethylene glycol-electrolyte (GOLYTELY) 236-22.74-6.74 -5.86 gram suspensionIndicatio ns:Encounter for screening colonoscopy Drink 2 liters (half of the bottle) the day before colonoscopy and 2 liters (remaining prep) 4-6 hours prior to colonoscopy appointment. 4000 mL 2 10/14/19 24 Discontinu ed(*Patien t states no longer taking) omeprazole (PRILOSEC) 20 mg Delayed-Release capsuleIndications: Nausea and vomiting, unspecified vomiting type Take 1 Capsule (20 mg) by mouth once daily before a meal. 90 Capsule 1 2 10/01/19 24 Discontinu ed(*Med complete/R egimen complete/L evel of care change) valACYclovir (VALTREX) 500 mg tabletIndications:G enital herpes simplex, unspecified site Take 1 Tablet (500 mg) by mouth two times daily. Take for 3 days with each genital herpes outbreak. 6 Tablet 3 2 10/14/19 24 Discontinu ed(*Patien t states no longer taking) hyoscyamine sublingual (LEVSIN SL) 0.125 mg sublIndications:Irr itable bowel syndrome with both constipation and diarrhea Place 1 Tablet (0.125 mg) under the tongue every 4 hours if needed (for ibs symptoms). 30 Tablet 1 2 10/14/19 24 Discontinu ed(*Patien t states no longer taking) SUMAtriptan (IMITREX) 25 mg tabletIndications:M igraine syndrome Take 1 Tablet (25 mg) by mouth every 2 hours if needed for Migraine. Give at minimum 2hrs apart. Max Dose: 200mg per 24hrs. 10 Tablet 3 3 10/14/19 Discontinu ed(*Patien t states no longer taking) ondansetron (ZOFRAN ODT) 4 mg disintegrating tabletIndications:M igraine syndrome Place 1 Tablet (4 mg) on the tongue every 8 hours if needed for Nausea/Vomiting. 30 Tablet 3 10/01/19 Discontinu ed(Reorder (E-cancel not sent)) methylPREDNISolone (Medrol, Phong,) 4 mg tabletIndications:M ild intermittent asthma without complication Take by mouth as instructed per packaging. 21 Tablet 3 10/14/19 24 Discontinu ed(*Patien t states no longer taking) cyclobenzaprine (FLEXERIL) 10 mg tabletIndications:C hronic low back pain with right-sided sciatica, unspecified back pain laterality Take 1 Tablet (10 mg) by mouth 3 times daily if needed for Muscle Spasm. 30 Tablet 4 10/14/19 24 Discontinu ed(*Patien t states no longer taking) Active Problems Problem Noted Date Diagnosed Date 10/14/2023 Overview: Estimated Date of Delivery: 06/08/24 Patient's last menstrual period was 09/02/2023 (approximate). GBS: 28wk labs: Last Tdap: 2019 Last Flu vaccine: none OB Labs: Allergies Allergen Reactions Bee Venom Protein (Honey Bee) Throat Swelling/Closing Chocolate Flavor Nausea And Vomiting and Throat Swelling/Closing Lexapro [Escitalopram] Anxiety Possible hives Nickel Rash OB History Para Term AB Living 3 0 0 0 2 0 SAB IAB Ectopic Multiple Live Births 0 2 0 0 0 # Outcome Date GA Lbr Daniel/2nd Weight Sex Delivery Anes PTL Lv 3 Current 2 IAB 01/2023 1 IAB 2018 Past Medical History: . Date Anxiety Asthma exercise induced - inhaler prn Depression Herpes Marijuana use 2010 Migraine headache Past Surgical History: . Laterality Date COLONOSCOPY DIAGNOSTIC 06/02/2022 normal, repeat at age 46 ESOPHAGOGASTRODUODENOSCOPY 06/02/2022 normal NO PAST SURGERIES Problems (from 10/14/23 to present) No problems associated with this episode. Ana Collier RN ....10/14/2023 4:12 PM Irritable bowel syndrome wit h both constipation and diarrhea 06/19/2022 Genital herpes simplex 12/12/2021 Mild intermittent asthma without complication Marijuana use 07/06/2009 Anxiety Estimated Date of Delivery Comme nts Yes 06/08/2024 Encounters Date Type Department Care Team Description 10/14/2023 3:10 PM CDT OB Encounter [facility] [address] [place] [address] Education (RN OB intake) 10/14/2023 2:15 PM CDT Office Visit [facility] [address] [place] [address] Marylou Dowell MD Establish Care ( care, 6 weeks) 10/14/2023 Travel 10/12/2023 2:50 PM CDT Telemedicine [address] [phone] O'Angely, Moiz Browne MD Consult (IBS, syncope); Telehealth 10/11/2023 Travel 10/01/2023 10:35 AM CDT Office Visit [facility] [address] [facility] [address] Mina Doss, DO Follow Up (About the diagnosis you talked about last time Pots); Concerns (About joint pain. becoming more of a problem) 10/01/2023 Travel 09/01/2023 2:05 PM VIROLOGIST Office Visit [facility] [address] [place] [address] Mina Doss, DO Abdominal Pain (IBS - has been back to work and has been having fainting and lightheadedness - work seems to make it worse ) 09/01/2023 Travel from Last 3 Months Immunizations Name Administration Dates Next Due COVID-19 vaccine (Moderna 100mcg/0.5mL) PF, MDV 11/29/2020,11/01/2020 DTaP 02/21/2002, 8,06/07/1997,1996,02/03/1997 Hepatitis B, Unspecified 03/30/1998,04/07/1997,0 02/03/1997 Hib Conjugate, Unspecified 03/30/1998,,04/07/1997,1996 MMR 02/21/2002,03/30/1998 Polio Virus, Unspecified 02/21/2002,1996,04/07/1997,1996 Tdap 06/14/2019,02/26/2009 Varicella Vaccine 02/26/2009 Family History Medical History Relation Name Comments Addiction problem Brother 1 Autism Brother 2 No Known Problems Father Cancer Maternal Grandfather Hypertension Maternal Grandfather No Known Problems Maternal Grandmother No Known Problems Mother No Known Problems Paternal Grandfather No Known Problems Paternal Grandmother Anesthesia Problem No Family History Relation Name Status Comments Brother 1 Alive Brother 2 Alive Father Alive Maternal Grandfather Maternal Grandmother Alive Mother Alive Paternal Grandfather Paternal Grandmother Social History Tobacco Use Types Packs/Day Years Used Date Smoking Tobacco: Every Day Cigarettes 0.2 8.1 Started: 09/23/2022; Last attempted to quit: 12/18/2021 Smokeless Tobacco: Never Tobacco Cessation:Ready to Q uit: Yes; Counseling Given: Yes Comments:2-3 per day Alcohol Use Standard Drinks/Week Comments Not Currently 0 (1 standard drink = 0.6 oz pur e alcohol) PHQ-2 Answer Date Recorded PHQ-2 TOTAL SCORE 3 10/14/2023 Social Connections Answer Date Recorded Frequency of Communication with Friends and Fami ly 0 10/12/2023 Financial Resource Strain Answer Date R ecorded Difficulty of Paying Living Expenses 3 10/12/2023 Difficulty of Paying Living Expenses Not on file 10/12/2023 Food Insecurity Answer Date Recorded Worried About Running Out of Food in the Last Ye ar 1 10/12/2023 Transportation Needs Answer Date Record ed Lack of Transportation (Medical) 1 10/12/2023 Housing Stability Answer Date Recorded Unable to Pay for Housing in the Last Year 1 10/12/2023 Estimated Date of Delivery Comme nts Yes 06/08/2024 Sex and Gender Information Value Date Recorded Sex Assigned at Not on file Gender Identity Not on file Sexual Orientation Not on file Obstetrics History Para Term AB IAB SAB Ectopic Multiple Livin g Live Births 3 2 2 Date Outcome GA Total Labor Labor/2nd/3rd Weight Sex Delivery Anes PTL Maria Ines A1 A5 Name Cl in 2018 IAB 01/22 23 IAB Current Summary Episode Dates Number of Fetuses Estimated Date of Delivery 10/14/2023 - Present (10/15/2023) 06/08/2024 (based on Alternate EJ Entry) Dating Summary Based On EJ GA Diff Last Menstrual Period on 09/02/2023 (Approximate ) 06/08/2024 Same Alternate EJ Entry 06/08/2024 Working Comment:Date entered prior t o episode creation Notes Progress Notes - OB Encounte r - 10/14/2023 - GA:6w0d 10/14/2023 - 6w0d - Ana Collier, RN SUBJECTIVE: Geraldine Henley is a 27 y.o. female, , who presents for confirmation and ob education. Patient presents to the clinic with partner. Had positive test at home. This was Unplanned, Desired. Patient was not on contraception. 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 MENSTRUAL HISTORY: Patient's last menstrual period was 09/02/2023 (approximate).: Cycle Regularity: regular, every 28-30 days Past Medical History: . Date Anxiety Asthma exercise induced - inhaler prn Depression Herpes Marijuana use 2010 Migraine headache OB History Para Term AB Living 3 2 SAB IAB Ectopic Multiple Live Births 2 # Outcome Date GA Lbr Daniel/2nd Weight Sex Delivery Anes PTL Lv 3 Current 2 IAB 01/2023 1 IAB 2018 5P'S SUBSTANCE ABUSE SCREEN FOR ALCOHOL, DRUGS AND TOBACCO: Did any of your parents have a problem with using alcohol or drugs? No Do any of your friends (peers) have problems with drug or alcohol use? No Does your partner have a problem with drug or alcohol use? No Before you knew you were , how often did you drink beer, wine, wine coolers or liquor or use any kind of drug? Alcohol rarely- daily marijuana In the past month, how often did you drink beer, wine, wine coolers or liquor or use any kind of drug? Daily marijuana How much did you smoke, vape or use tobacco or nicotine in any form before you knew you were ? 1/2 pack before , 2-3 a day now Genetic Screening Genetic Screening/Teratology Counseling- Includes patient, baby's father, or anyone in either family with: Patient's age 35 years or older as of estimated date of delivery: No Thalassemia (Kazakh, Uzbek, Mediterranean, or background): MCV less than 80: No Neural tube defect (Meningomyelocele, Spina bifida, or Anencephaly): No Congenital heart defect: No Down syndrome: No Abel-Sachs (Ashkenazi Congregational, Cajun, Yakut [place]): No Jerry disease (Ashkenazi Congregational): No Familial dysautonomia (Ashkenazi Congregational): No Sickle cell disease or trait (): No Hemophilia or other blood disorders: No Muscular dystrophy: No Cystic fibrosis: No [place]'s chorea: No Intellectual disability and/or autism: Yes (Comment: baby's parents siblings and paternal grandfather) If yes, was the person tested for Fragile X?: No Other inherited genetic or chromosomal disorder: Yes (Comment: baby's father and his brother- mild cleft lip?) Maternal metabolic disorder (eg. Type 1 diabetes, PKU): No Patient or baby's father had child with defects not listed above: No Recurrent loss, or a stillbirth: No Medications (including supplements, vitamins, herbs, or OTC drugs)/illicit/recreational drugs/alcohol since last menstrual period: Yes If yes, agent(s) and strength/dosage: daily marijuana smoker CURRENT MEDICATIONS: Current Outpatient Medications Medication Sig busPIRone (BUSPAR) 5 mg tablet Take 1 Tablet (5 mg) by mouth two times daily for 14 days, THEN 2 Tablets (10 mg) two times daily. (Patient not taking: Reported on 10/12/2023) cholecalciferol, Vitamin D3, (Vitamin D-3) 5,000 unit tab tablet Take 1 Tablet (5,000 units) by mouth once daily. EPINEPHrine (EPIPEN) 0.3 mg/0.3 mL auto-injector Inject 0.3 mg intramuscular each time if needed for Allergic Reaction. (Patient not taking: Reported on 10/12/2023) famotidine (PEPCID) 40 mg tablet Take 1 Tablet (40 mg) by mouth once daily. (Patient not taking: Reported on 10/12/2023) hydrOXYzine HCL (ATARAX) 25 mg tablet Take 1 Tablet (25 mg) by mouth every 8 hours if needed for Anxiety. (Patient not taking: Reported on 10/12/2023) medication order composer Vitamin d3 2000 unit capsules ondansetron (ZOFRAN ODT) [address] 1 Tablet (4 mg) on the tongue every 8 hours if needed for Nausea/Vomiting. No current facility-administered medications for this visit. Medications have been reviewed by me and are current to the best of my knowledge and ability. ALLERGIES: Bee venom protein (honey bee), Chocolate flavor, Lexapro [escitalopram], and Nickel OBJECTIVE: LMP 09/02/2023 (Approximate) ,URINE (no units) Date Value 11/22/2017 Negative ASSESSMENT/PLAN: No diagnosis found. EDUCATION/PATIENT INSTRUCTIONS - Advised patient to start/continue vitamin. - Discussed risk of using alcohol, tobacco, other drugs in . - Discussed healthy lifestyle in . - Provided copy of [facility] book and book inserts, discussed [id number] medications, and follow up. - Encouraged patient to call clinic at [phone] with any vaginal bleeding, fluid leaking from vagina, severe abdominal pain, nausea with severe vomiting, fever higher than 100.4F, painful urination, headache not relieved by Tylenol, or other concerns - labs completed with today's visit. - Patient informed to schedule 1st trimester dating ultrasound between 7-10 weeks. - Initial OB appointment with FP/OB scheduled. PHQ-9, and COVID-19 vaccine discussion to be completed at this visit. Future Appointments Date Time Provider Department Center 10/15/2023 1:00 PM Edouard Waldron L Ac NFLDAC NF 10/22/2023 7:00 AM Talia Montelongo NP NFLDPS NFLD 12/09/2023 1:30 PM ANW TREADMILL RM 7 ANWHCD ANW 01/01/2024 10:35 AM Mina Doss DO NFLDFP NFLD Ana Collier RN .................... 10/14/2023 3:28 PM Last Filed Vital Signs Vital Sign Reading Time Taken Comments Blood Pressure 111/69 10/14/2023 2:19 PM CDT Pulse 78 10/14/2023 2:19 PM CDT Temperature 37.5 ??C (99.5 ??F) 11/25/2022 11:32 AM C DT Respiratory Rate 14 05/14/2022 12:06 PM VIROLOGIST Oxygen Saturation 98% 10/14/2023 2:19 PM CDT Inhaled Oxygen Concentration - - Weight 91.2 kg (201 lb) 10/14/2023 2:19 PM CDT Height 170.2 cm (5' 7) 10/14/2023 2:19 PM CDT Body Mass Index 31.48 10/14/2023 2:19 PM CDT Plan of Treatment Upcoming Encounters Date Type Department Care Team (Late st Contact Info) Description 10/15/2023 1:00 PM CDT Procedure Only [facility] [address] [place] [address] Edouard Waldron L Ac [address] [place] [address] 10/22/2023 7:00 AM CDT Telemedicine [facility] [address] [place] [address] Talia Montelongo, KENNY [address] [place] [address] 11/04/2023 4:00 PM CDT Ancillary Procedure [facility] [address] [place] [address] 11/11/2023 3:55 PM CDT OB Encounter [facility] [address] [place] [address] Marylou Dowell MD [address] [place] [address] 12/09/2023 1:30 PM CDT Appointment [facility] [address] [place] [address] 01/01/2024 10:35 AM CDT Office Visit [facility] [address] [place] [address] Mina Doss DO [address] [place] [address] Health Maintenance Due Date Last Done Comments Pneumococcal series for age 6-64 (1 of 2 - PCV) 2002 HIV for age 15-65 12/02/2011 HPV series for age 9-26 (1 - 3-dose series) 12/02/2011 Hepatitis C screening for ag e 18-79 2014 Pap test for age 21-65 05/25/2020 05/25/2017 COVID-19 vaccine series ( season) 2023 11/29/2020, 11/01/2020 Influenza for age 9-49 03/06/2024 BMI (ht and wt on same day) for age 18+ 10/13/2024 10/14/2023, 05/27/2022, 12/30/2021, Additional history exists Depression screening for age 12+ 10/13/2024 10/14/2023, 05/16/2022, 04/07/2022, Additional history exists Tetanus booster 06/14/2029 06/14/2019, 02/26/2009 Tdap Completed 06/14/2019, 02/26/2009 Procedures Procedure Name Priority Date/Time Associated Diagnosis Comments UA W/ SEDIMENT EXAM REFLEXED PER CRITERIA Routine 10/14/2023 4:22 PM CDT confirmed by positive urine test TYPE & SCREEN Routine 10/14/2023 4:20 PM CDT confirmed by positive urine test CBC W PLT NO DIFF Routine 10/14/2023 4:2 0 PM CDT confirmed by positive urine test HLA B 27 DISEASE ASSOCIATION Routine 10/01/2023 11:16 AM CDT Chronic low back pain with right-sided sciatica, unspecified back pain laterality POTS (postural orthostatic tachycardia syndrome) ANTINUCLEAR ANTIBODY BY IFA Routine 10/01/2023 11:16 AM CDT Chronic low back pain with right-sided sciatica, unspecified back pain laterality POTS (postural orthostatic tachycardia syndrome) CBC WITH AUTO DIFFERENTIAL Routine 09/01/2023 3:30 PM VIROLOGIST Tachycardia VITAMIN D 25 (DEFICIENCY) Routine 09/01/2023 3:30 PM VIROLOGIST Tachycardia ZINC SERUM Routine 09/01/2023 3:30 PM VIROLOGIST Tachycardia CBC WITH AUTO DIFFERENTIAL Routine 09/01/2023 3:30 PM VIROLOGIST Tachycardia TSH WITH REFLEX Routine 09/01/2023 3:30 PM VIROLOGIST Tachycardia FEATHEREDGER AND REDUCER MACHINE THIN PREP PAP SCREEN IMAGED Routine 05/25/2017 4:49 PM VIROLOGIST Cervical cancer screening from Last 3 Months or Most Recently Relevant to Health Maintenance Results * (ABNORMAL) URINALYSIS W REFLEX MICROSCOPIC IF POSITIVE [09864.2] (10/14/2023 4:22 PM CDT) COLOR Yellow Yellow Color 10/14/2023 4:30 PM CDT [facility] CLARITY Clear Clear Clarity 10/14/2023 4:30 PM CDT [facility] SPECIFIC GRAVITY,URINE >=1.030(A) 1.010, 1.015, 1.020, 1.025 10/14/2023 4:30 PM CDT [facility] PH,URINE 6.0 6.0, 7.0, 8.0, 5.5, 6.5, 7.5, 8.5 10/14/2023 4:30 PM CDT [facility] UROBILINOGEN, QUALITATIVE Normal Normal EU/dl 10/14/2023 4:30 PM CDT [facility] PROTEIN, URINE Negative Negative mg/dL 10/14/2023 4:30 PM CDT [facility] GLUCOSE, URINE Negative Negative mg/dL 10/14/2023 4:30 PM CDT [facility] KETONES,URINE Trace(A) Negative mg/dL 10/14/2023 4:30 PM CDT [facility] BILIRUBIN,URI NE Negative Negative 10/14/2023 4:30 PM CDT [facility] OCCULT BLOOD,URINE Negative Negative 10/14/2023 4:30 PM CDT [facility] NITRITE Negative Negative 10/14/2023 4:30 PM CDT [facility] LEUKOCYTE ESTERASE Negative Negative 10/14/2023 4:30 PM CDT [facility] Urine URINE SPECIMEN / Unknown Non-Blood / Unknown 10/14/2023 4:22 PM CDT 10/14/2023 4:22 PM CDT Marylou Dowell MD URINE [facility] [address] [place] [address], [place] [phone] * TYPE AND SCREEN (10/14/2023 4:20 PM CDT) Pathologist [facility] ABORH A Rh Positive 10/14/2023 11:03 PM CDT [facility] ANTIBODY SCREEN Negative Negative 10/14/2023 11:03 PM CDT [facility] SPECIMEN EXPIRATION DATE/TIME 10/17/23 23:59 10/14/2023 11:03 PM CDT [facility] Blood BLOOD SPECIMEN / Unknown Venipuncture / Unknown 10/14/2023 4:20 PM CDT 10/14/2023 4:22 PM CDT aMrylou Dowell MD BLOOD BANK [facility] [address] [place] [address], [place] [phone] * (ABNORMAL) CBC W PLT NO DIFF (10/14/2023 4:20 PM CDT) [facility] WHITE BLOOD COUNT 8.9 4.5 - 11.0 thou/cu mm 10/14/2023 4:28 PM CDT [facility] RED BLOOD COUNT 3.68(L) 4.00 - 5.20 mil/cu mm 10/14/2023 4:28 PM CDT [facility] HEMOGLOBIN 11.9(L) 12.0 - 16.0 g/dL 10/14/2023 4:28 PM CDT [facility] HEMATOCRIT 34.5 33.0 - 51.0 % 10/14/2023 4:28 PM CDT [facility] MCV 94 80 - 100 fL 10/14/2023 4:28 PM CDT [facility] MCH 32.3 26.0 - 34.0 pg 10/14/2023 4:28 PM CDT [facility] MCHC 34.5 32.0 - 36.0 g/dL 10/14/2023 4:28 PM CDT [facility] RDW 12.8 11.5 - 15.5 % 10/14/2023 4:28 PM CDT [facility] PLATELET COUNT 220 140 - 440 thou/cu mm 10/14/2023 4:28 PM CDT [facility] MPV 11.0 6.5 - 11.0 fL 10/14/2023 4:28 PM CDT [facility] Blood BLOOD SPECIMEN / Unknown Venipuncture / Unknown 10/14/2023 4:20 PM CDT 10/14/2023 4:22 PM CDT Marylou Dowell MD HEMATOLOGY [facility] [address] [place] [address], * ANTINUCLEAR ANTIBODY BY IFA (10/01/2023 11:16 AM CDT) ANTINUCLEAR ANTIBODY (AGATHA) Negative Negative 10/02/2023 12:39 PM CDT [facility] Blood BLOOD SPECIMEN / Unknown Venipuncture / Unknown 10/01/2023 11:16 AM CDT 10/01/2023 11:18 AM CDT Narrative [facility] - 10/02/2023 12:39 PM CDT Method: AGATHA screen performed by (IFA) on HEP-2 substrate, IgG Mina Doss DO CHEMISTRY [facility] [address] [place] [address], * HLA B 27 DISEASE ASSOCIATION (10/01/2023 11:16 AM CDT) HLA B27 Negative 10/09/2023 11:10 AM CDT [facility] ([facility]) Comment: HLA-B*27 Negative B27 allele interpretation for all loci based on IMGT/HLA database version 3.51.0 This test was developed and its performance characteristics determined by [employer] (formerly [employer]). ??It has not been cleared or approved by the Food and Drug Administration. [facility] CLIA ID Number [id number] THis test was performed using Polymerase Chain Reaction (PCR) and Sequence Specific Oligonucleotide Probes (SSOP) technique. Sequence Based Typing (SBT) may be used as a supplemental method when necessary. If you have questions, please call [facility] customer service at or email at [email or web address]. Blood BLOOD SPECIMEN / Unknown Venipuncture / Unknown 10/01/2023 11:16 AM CDT 10/01/2023 11:18 AM CDT Narrative [facility] ([facility]) - 10/09/2023 11:10 AM CDT Performed at: ??01 - [facility] [address] [place], [place] ??[id number] Charter Coordinator: Vikki Clark PhD, Phone: ??[phone] Mina Doss DO SEND OUTS Performing Organization Address [facility] de Phone Number [facility] ([facility]) [address] [place] [address], * ZINC SERUM (09/01/2023 3:30 PM VIROLOGIST) [facility] ZINC BLOOD 74 44 - 115 ug/dl 09/03/2023 2:43 PM VIROLOGIST [employer] Comment: Analysis performed by Inductively-Coupled Plasma/Mass ? Spectrometry (ICP/MS). ? This test was developed and its performance characteristics determined by [employer] (formerly [employer]). It has not been cleared or approved by the Food and Drug Administration. Blood BLOOD SPECIMEN / Unknown Venipuncture / Unknown 09/01/2023 3:30 PM VIROLOGIST 09/01/2023 3:31 PM VIROLOGIST Mina Doss DO SEND OUTS [employer] [address] [place] [address], * CBC WITH AUTO DIFFERENTIAL (09/01/2023 3:30 PM VIROLOGIST) [facility] WHITE BLOOD COUNT 7.8 4.5 - 11.0 thou/cu mm 09/01/2023 3:38 PM VIROLOGIST [facility] RED BLOOD COUNT 4.17 4.00 - 5.20 mil/cu mm 09/01/2023 3:38 PM [facility] HEMOGLOBIN 13.5 12.0 - 16.0 g/dL 09/01/2023 3:38 PM [facility] HEMATOCRIT 39.4 33.0 - 51.0 % 09/01/2023 3:38 PM [facility] MCV 95 80 - 100 fL 09/01/2023 3:38 PM [facility] MCH 32.4 26.0 - 34.0 pg 09/01/2023 3:38 PM [facility] MCHC 34.3 32.0 - 36.0 g/dL 09/01/2023 3:38 PM [facility] RDW 12.8 11.5 - 15.5 % 09/01/2023 3:38 PM [facility] PLATELET COUNT 206 140 - 440 thou/cu mm 09/01/2023 3:38 PM [facility] MPV 11.0 6.5 - 11.0 fL 09/01/2023 3:38 PM [facility] % NEUT 59.7 % 09/01/2023 3:38 PM [facility] % LYMPH 27.5 % 09/01/2023 3:38 PM [facility] % MONO 9.3 % 09/01/2023 3:38 PM VIROLOGIST [facility] % EOS 3.1 % 09/01/2023 3:38 PM [facility] % BASO 0.4 % 09/01/2023 3:38 PM [facility] ABSOLUTE NEUTROPHILS 4.7 1.7 - 7.0 thou/cu mm 09/01/2023 3:38 PM [facility] ABSOLUTE LYMPHOCYTES 2.2 0.9 - 2.9 thou/cu mm 09/01/2023 3:38 PM VIROLOGIST [facility] ABSOLUTE MONOCYTES 0.7 <0.9 thou/cu mm 09/01/2023 3:38 PM VIROLOGIST [facility] ABSOLUTE EOSINOPHILS 0.2 <0.5 thou/cu mm 09/01/2023 3:38 PM VIROLOGIST [facility] ABSOLUTE BASOPHILS 0.0 <0.3 thou/cu mm 09/01/2023 3:38 PM VIROLOGIST [facility] Blood BLOOD SPECIMEN / Unknown Venipuncture / Unknown 09/01/2023 3:30 PM VIROLOGIST 09/01/2023 3:31 PM VIROLOGIST Mina Doss DO HEMATOLOGY Performing Organization Address [facility]/ZIP Co de Phone Number [facility] [address] [place] [address], [place] [phone] * TSH WITH REFLEX (09/01/2023 3:30 PM VIROLOGIST) TSH 1.98 0.27 - 4.20 uIU/mL 09/02/2023 3:39 PM VIROLOGIST [facility] Blood BLOOD SPECIMEN / Unknown Venipuncture / Unknown 09/01/2023 3:30 PM VIROLOGIST 09/01/2023 3:31 PM VIROLOGIST [facility]ative [facility] 09/02/2023 3:39 PM VIROLOGIST In Adults, TSH values between 5.00 and 10.00 uIU/ml do not necessarily indicate the presence of Hypothyroidism. Correlation with clinical findings such as presence of goiter and/or Thyroperoxidase (TPO) Antibody may be helpful. For more information please refer to REBECA 2004; 291: 228-238. Mina Doss DO CHEMISTRY [facility] [address] [place] [address], [place] * (ABNORMAL) VITAMIN D 25 (DEFICIENCY) (09/01/2023 3:30 PM VIROLOGIST) VITAMIN D TOTAL 19.6(L) 20.0 - 80.0 ng/mL 09/02/2023 3:38 PM VIROLOGIST [facility] Blood BLOOD SPECIMEN / Unknown Venipuncture / Unknown 09/01/2023 3:30 PM VIROLOGIST 09/01/2023 3:31 PM VIROLOGIST Narrative [facility] - 09/02/2023 3:38 PM VIROLOGIST ? Vitamin D Status Deficiency: ? <20 ng/mL Insufficiency: ?20-29 ng/mL Sufficiency: ?30-80 ng/mL Possible Toxicity: ??>80 ng/mL Based on [employer] recommendations Biotin supplements may cause clinically significant interference for this test assay. ??If interference is suspected, it is strongly recommended that biotin is discontinued for at least one week prior to retesting. Mina Doss DO SEND OUTS [facility] [address] [place] [address], * FEATHEREDGER AND REDUCER MACHINE THIN PREP PAP SCREEN IMAGED (05/25/2017 4:49 PM VIROLOGIST) [facility] Case Report Gynecologic Cytology Report ? Case: [id number] ? Authorizing Provider: ??Aureliano Seymour MD ??Collected: ? 05/25/20171648 ? Ordering Location: ? [facility] ?? Received: ?05/25/20171648 ? Clinic ? First Screen: ?Veronica Ventura ? Specimen: ?FEATHEREDGER AND REDUCER MACHINE ThinPrep Vial Screening, Cervical ? 06/05/2017 2:32 PM VIROLOGIST [facility] ENTRAL LABORATORY INTERPRETATION/ RESULT NEGATIVE FOR INTRAEPITHELIAL LESION OR MALIGNANCY (NIL) (none) 06/05/2017 2:32 PM [facility] IMEN ADEQUACY Satisfactory for evaluation Endocervical component present 06/05/2017 2:32 PM VIROLOGIST [facility] ENTRAL LABORATORY HPV REQUEST HPV if ASCUS 06/05/2017 2:32 PM VIROLOGIST [employer] [facility] EN[facility]AL LABORATORY Date of LMP 05/25/2017 06/05/2017 2:32 PM [facility] Last Pap Date first pap 06/05/2017 2:32 PM [facility] Last Pap Result First Pap/Unknown 2:32 PM VIROLOGIST [facility] Abnormal Pap or [place] Bx in last 5 years No 06/05/2017 2:32 PM [facility]IROLOGIST [facility] Menstrual Status Regular Periods 06/05/2017 2:32 PM [facility]IROLOGIST [facility] ENTRAL [facility] [place] Bx Done Today No 06/05/2017 2:32 PM [facility] Additional Information None given 06/05/2017 2:32 PM [facility]- ENTRAL LABORATORY Automated Review Successful 06/05/2017 2:32 PM VIROLOGIST [facility] ENTRAL LABORATORY Comment:Specimen processed s uccessfully by automated sugarcane research technician device, ThinPrep Imaging System, [employer] Note The pap test is a screening technique, not a diagnostic procedure. ??It is used primarily to screen for squamous cancers and precursor lesions. ??Published studies have shown that it is subject to both false negative and false positive results. ??The pap test should not be used as the sole means to diagnose or exclude pre-malignant and malignant lesions. Interpreted at [facility] (Central Lab, [facility], [facility], [facility], [facility], [facility] [place], [facility]) 06/05/2017 2:32 PM VIROLOGIST [facility] ENTRAL LABORATORY Other (Cervical) 05/25/2017 4:49 PM VIROLOGIST 05/25/2017 4:49 PM VIROLOGIST Aureliano Seymour MD PATHOLOGY/CYTOLO GY [facility] [address] [place] [address], from Last 3 Months or Most Recently Relevant to Health Maintenance Care Teams Maintenance Operator Relationship Specialty Start Date End Date Hellen Chu PCP - General 11/28/22
[2023-10-15 07:25] VITALS: BP 100/56; PULSE 95; RESP 18; O2SAT 100
[2023-10-15] MEDS: LACTATED RINGERS 1000 ML 1,000 ML IV (07:30)
== END 2023-10-15 08:29 | disposition home or self-care (01) ==
PROVIDERS: Emergency Provider Family Medicine; PCP Student in an Organized Health Care Education/Training Program
DX: R11.10 Vomiting, unspecified (principal); Z3A.01 Less than 8 weeks gestation of pregnancy
CPT/HCPCS: 81025; 96365; 96375; 99283; 99284; C9113; J2765; J7030; J7120

== ENCOUNTER 2023-12-30 14:30 | Outpatient (RCR) | payer BC, SELFPAY | END 2024-04-28 23:59 | disposition home or self-care (01) | PROVIDERS: PCP Student in an Organized Health Care Education/Training Program; Visit Provider Student in an Organized Health Care Education/Training Program | DX: M54.41 Lumbago with sciatica, right side (principal); G89.29 Other chronic pain; Q79.60 Ehlers-Danlos syndrome, unspecified; R53.1 Weakness; Z51.89 Encounter for other specified aftercare | CPT/HCPCS: 97110; 97140; 97162 ==

== ENCOUNTER 2024-03-17 10:47 | Outpatient (CLI) | payer BC, SELFPAY ==
--- OUTSIDE RECORDS SUMMARY | 2024-03-17 10:53 | XMS_ITS | Clinical Summary ---
Author Organization [facility] Address [place], [place] [address] Care Team Providers Care Sales Recruitment Specialist Name Role Phone Marylou Little MD Primary Care Prov ider Allergies Active Allergy Reactions Criticality Noted Date Comments Bee Venom Protein (Honey Bee) Throat Swelling/Closing High 09/06/2021 Chocolate Flavor Nausea And Vomiting,Throat Swelling/Closing High 08/27/2018 Escitalopram Anxiety 02/11/2022 Possible hives Nickel Rash 08/27/2018 Medications Medication Sig Dispensed Refills Start Date End Date Status EPINEPHrine (EPIPEN) 0.3 mg/0.3 mL auto-injectorIndicat ions:Anaphylaxis, sequela Inject 0.3 mg intramuscular each time if needed for Allergic Reaction. 2 Each 09/01/2023 Active cholecalciferol, Vitamin D3, (Vitamin D-3) 5,000 unit tab tabletIndications:Vi tamin D deficiency Take 1 Tablet (5,000 units) by mouth once daily. 90 Tablet 3 09/03/2023 Active ondansetron (ZOFRAN ODT) 4 mg disintegrating tabletIndications:Mi graine syndrome Place 1 Tablet (4 mg) on the tongue every 8 hours if needed for Nausea/Vomiting. 30 Tablet 10/01/2023 Active famotidine (PEPCID) 40 mg tabletIndications:Na usea Take 1 Tablet (40 mg) by mouth once daily. 90 Tablet 3 10/01/2023 Active medication order composer Vitamin d3 2000 unit capsules 10/12/2023 Active vitamin chewable (NATACHEW) 29 mg iron- 1 mg chew Chew 1 Tablet by mouth once daily. Active doxylamine-pyridoxin e, vit B6, 10-10 mg TbEC Take 1 Tablet by mouth two times daily. 10/15/2023 Active prochlorperazine (COMPAZINE) 5 mg tabletIndications:Na usea and vomiting of , antepartum Take 1-2 Tablets (5-10 mg) by mouth every 6 hours if needed for Nausea/Vomiting. 30 Tablet 10/16/2023 Active busPIRone (BUSPAR) 10 mg tabletIndications:Ge neralized anxiety disorder Take 1 Tablet (10 mg) by mouth two times daily. 60 Tablet 2 11/04/2023 Active aspirin chewable 81 mg chewable tabletIndications:10 weeks gestation of Chew 1 Tablet (81 mg) by mouth once daily with a meal. 90 Tablet 2 11/25/2023 Active hydrOXYzine HCL (ATARAX) 25 mg tabletIndications:Ge neralized anxiety disorder TAKE 1 TABLET(25 MG) BY MOUTH EVERY 8 HOURS NEEDED FOR ANXIETY 30 Tablet 11/18/2023 Active Active Problems Problem Noted Date Diagnosed Date [facility], Supervision of high-risk 01/12/20 24 Overview (01/14/2024): Geraldine Rashid Kale : 1995 REFERRING PROVIDER: Marylou Little MD, [facility], Primary provider approves scheduling of recommended ultrasounds/testing: Yes [facility] ULTRASOUND/TESTING PATIENT Support person name: Blayne ULTRASOUND TYPE: level II REASON FOR VISIT: Paternal family with history of cleft palate, BMI 32 NEXT VISIT ALERTS: Final EJ by LMP LMP Date: Patient's last menstrual period was 09/02/2023 (approximate). EJ: 06/08/24 Early US: Date: 11/04/23 GA: 8w5d EJ: 06/10/24 PrePregnancy Weight: 207lb Height: 5'7 BMI: 32 PLANS & FUTURE APPOINTMENTS: ULTRASOUND/GROWTH PLAN: - Through: - Growth: Next TESTING PLAN: - Testing: Through DELIVERY PLAN: - Scheduled delivery: - Preferred delivery location: PRIMARY DIAGNOSIS: 28 y.o. Estimated Date of Delivery: 06/08/24 MATERNAL Anxiety Cannabis use History of HSV FAMILY HISTORY FOB and FOB's brother with mild cleft lip at PREVIOUS ULTRASOUNDS: 01/18/24 19w5d ECHO: SPECIALISTS/CONSULTS: Include: Specialty MD Clinic Name Phone# [place] and ADDED TO PATIENT CARE TEAM GENETICS: Declines/Not Done MPP GC 01/18/24 CARE COORDINATION: PERTINENT LABS: Labs reviewed? Yes Normal? Yes Blood type: A Rh Positive Antibody screen: Negative PERTINENT MEDS: Buspar Hydroxyzine bASA PROCEDURES: IF FGR <10% or EFW <2000 grams: Add FGRPCOM PLAN OF CARE: Original and updated POC 10/14/2023 Overview (10/14/2023): Estimated Date of Delivery: 06/08/24 Patient's last [...] 3 Current 2 IAB 01/2023 1 IAB 2017 Past Medical History: . Date Anxiety Asthma exercise induced - inhaler prn Depression Herpes Marijuana use 2009 Migraine headache Past Surgical History: . Laterality [...] Encounters Date Type Department Care Team Description 03/17/2024 Nurse Triage [facility] [address] [place] [address] Marylou Little MD Headache; Vomiting 03/16/2024 1:00 PM CDT Ancillary Procedure [facility] [address] [place] [address] Arrived 03/16/2024 Travel 03/02/2024 3:30 PM CDT OB Encounter [facility] [address] [facility] [place] [address] Marylou Little MD Care (26 weeks. Constipated, back discomfort. ) 03/02/2024 Travel 02/15/2024 2:00 PM CDT Telemedicine [facility] [address] [facility] [place] [address] Talia Montelongo NP Telehealth; Medication Management (feeling, I'm doing pretty good) 02/15/2024 Travel 02/03/2024 3:55 PM CDT OB Encounter [place] [address] [facility] [place] [address] Marylou Little MD Care (22 weeks ); Edema (bilateral foot swelling, left swells more than right. ); Concerns (Hair loss. ) 02/03/2024 Travel 01/18/2024 8:57 AM CDT - 01/18/2024 11:59 PM CDT Hospital Encounter [facility] [address] [facility] [address] [place] [address] 18 weeks gestation of ; Supervision of high risk in second trimester; High-risk in second trimester 01/18/2024 Travel 01/12/2024 Transcribe Orders [facility] [address] [facility] [address] [place] [address] Marylou Little MD 01/11/2024 2:40 PM CDT OB Encounter [facility] [address] [facility] [place] [address] Marylou Little MD Care (18 weeks 5 days) 01/11/2024 Travel from Last 3 Months Immunizations Name Administration Dates Next Due COVID-19 vaccine (Moderna 100mcg/0.5mL) PF, MDV 11/29/2020,11/01/2020 DTaP 02/21/2002, 8,06/07/1997,1996,02/03/1997 Hepatitis B, Unspecified 03/30/1998,04/07/1997,0 02/03/1997 Hib Conjugate, Unspecified 03/30/1998,,04/07/1997,1996 MMR 02/21/2002,03/30/1998 Polio Virus, Unspecified 02/21/2002,12/0 09/1996,04/07/1997,1996 Tdap 06/14/2019,02/26/2009 Varicella Vaccine 02/26/2009 Family History [...] Used Date Smoking Tobacco: Every Day Cigarettes 0.3 8.5 Started: 09/23/2022; Last attempted to quit: 12/18/2021 Smokeless Tobacco: Never Tobacco Cessation:Ready to Q uit: Yes; Counseling Given: Yes Comments:2-3 per day Alcohol Use Standard Drinks/Week Comments Not Currently 0 (1 standard drink = 0.6 oz pur e alcohol) PHQ-2 Answer Date Recorded PHQ-2 TOTAL SCORE 1 02/15/2024 Social Connections Answer Date Recorded Frequency of [...] Outcome GA Total Labor Labor/2nd/3rd Weight Sex Type Anes PTL Maria Ines A1 A5 Name Clin 2018 IAB 01/2023 IAB Current Summary Episode Dates Number of Fetuses Estimated Date of Delivery 10/14/2023 - Present (03/17/2024) 1 06/08/2024 (based on Alternate EJ Entry) Dating Summary Based On EJ GA Diff Last Menstrual Period on 09/02/2023 (Approximate ) 06/08/2024 Same Alternate EJ Entry 06/08/2024 Working Comment:Date entered prior t o episode creation Vitals Pregravid Weight Height TWG (As of 03/17/2024) Pregrav id BMI 91.2 kg (201 lb) 10.9 kg (24 lb) Date GA Fund Present FHR Mvmt BP Weight Edema Alb Glu Ket Dil/ Eff/Sta 4 19w5d Inpatient data not displayed here. See encounter summary. Notes Progress Notes - OB Encounte r - 03/02/2024 - GA:26w0d 03/02/2024 - 26w0d - Marylou Little MD S: Patient here today for routine visit. Doing well, no concerns, taking PNV's and aspirin. Things are going well. Feels more constipated. BM every other day. Uses miralax as needed. Problems Anxiety - on buspirone, hydroxyzine at night Cannabis use in H/o HSV, not on suppression medication H/o mild asthma, no current use of medication FOB and FOB's brother with mild cleft lip at , genetic consult at 19w5d, no abnormalities on anatomy US No nausea. Good movement. Swelling is better. Some vaginal leakage, feels more damp than normal, only happened a few times. No vaginal bleeding/discharge, contractions, dysuria or other urinary symptoms. No headache, vision changes, RUQ or epigastric pain, facial edema. O: See flowsheet. A/P: 28 y.o. at 26w0d, doing well. 1. Encounter for supervision of normal first in second trimester - Labs today - GLUCOSE,GESTATIONAL; Future - HEMOGLOBIN; Future - TREPONEMA PALLIDUM; Future - Constipation: Miralax daily. - Pre-eclampsia risk: moderate (nulliparity, obesity), recommend start aspirin 81mg at 12 weeks gestation - H/o genital HSV, recommend acyclovir 400 mg three times daily as suppressive therapy at 36 weeks gestation - Anxiety - continue buspirone and hydroxyzine, follows with psych - Growth US at 28w due to family history of cleft palate in FOB per MPP recs - US OB FOLLOW UP ANY TRI SINGLE TA; Future - Reviewed labor precautions. - Return in 4wks for OB FU. Marylou Little MD .................... 02/03/2024 4:37 PM Progress Notes - OB Encounte r - 02/03/2024 - GA:22w0d 02/03/2024 - wd - Marylou Little MD S: Patient here today for routine visit. Doing well, no concerns, taking PNV's and aspirin Problems Anxiety - on buspirone, hydroxyzine at night Cannabis use in H/o HSV, not on suppression medication H/o mild asthma, no current use of medication FOB and FOB's brother with mild cleft lip at , genetic consult at 19w5d, no abnormalities on anatomy US No nausea. Good movement. Ankle/foot swelling. More hair loss. No vaginal bleeding/discharge, loss of fluid, contractions, dysuria or other urinary symptoms. No headache, vision changes, RUQ or epigastric pain, facial edema. O: See flowsheet. A/P: 28 y.o. at 22w0d, doing well. 1. Encounter for supervision of normal first in second trimester - Labs at next visit - GLUCOSE,GESTATIONAL; Future - HEMOGLOBIN; Future - TREPONEMA PALLIDUM; Future - Pre-eclampsia risk: moderate (nulliparity, obesity), recommend start aspirin 81mg at 12 weeks gestation - H/o genital HSV, recommend acyclovir 400 mg three times daily as suppressive therapy at 36 weeks gestation - Anxiety - continue buspirone and hydroxyzine, follows with psych - Growth US at 28w due to family history of cleft palate in FOB per MPP recs - US OB FOLLOW UP ANY TRI SINGLE TA; Future - Reviewed labor precautions. - Return in 4wks for OB FU. Marylou Little MD .................... 02/03/2024 4:37 PM Progress Notes - Hospital En counter - 01/18/2024 - GA:19w5d 01/18/2024 - wd - Geraldine Moreira i MS, [facility] [place] / Clinic Note Genetic Counseling RE: Geraldine Henley : 1995 MR: [id number] Partner name: Blayne - present for today's visit; Geraldine's mother, Rayne also present Referred By: Marylou Little MD [address] [place] [address] Indication for Visit: Family history of cleft lip - FOB with lip pit and FOB brother with cleft lip History: Estimated Date of Delivery: 06/08/24 by LMP, confirmed by ultrasound GAA: 19w5d Complete genetic screening/testing: None Medications: buspirone, hydroxyzine, B6, zofran Exposures/infections: marijuana use in Family History: A formal family history was not collected due to focus on other topics. For negative family history information, please see scans for GC Questionnaire. Patient history notable for: Geraldine's brother has autism. He is high functioning and has no significant health concerns. Family history was otherwise unremarkable for defects, intellectual disability, developmental delays, recurrent miscarriages, sudden unexpected deaths, and known genetic conditions that would increased the risk to the . Partner history notable for: Blayne was born with a lower lip pit. His brother was born with a cleft lip and teeth anomalies. There is no other family history of clefting, although knowledge about Blayen's biological father is limited. Blayne's father and brother both have autism. Blayne suspects he may be on the autism spectrum as well. All are high functioning. Family history was otherwise unremarkable for defects, intellectual disability, developmental delays, recurrent miscarriages, sudden unexpected deaths, and known genetic conditions that would increased the risk to the . Patient ethnicity: White ([place] and [place]) Partner ethnicity: White ([place] and [place]) Consanguinity: none noted Risk Assessment: Discussed the family history, epidemiology and natural history of cleft lip and lip pits along with possible underlying causes including Van mata Woude syndrome. We began with a review of cleft lip and/or cleft palate (CL/P), noting that cleft palates (CP) are very difficult to detect on ultrasound. Embryonic development of these structures occurs between the 4-12th week of . Approximately 1 in 700 babies are born with cleft lip and/or palate. It is estimated that approximately 15% of cases are cleft lip alone. We discussed that there are many causes of clefting. Approximately 30% of CL/P cases are classified as syndromic, or have additional clinical concerns beyond clefting, while 70% are classified as non-syndromic, where clefting is the only concern identified. Of non-syndromic cases, approximately 20% are familial, meaning additional family members have had clefting, while 80% are sporadic, being the first diagnosed in the family. Both environmental factors and genetic factors can lead to an increased risk for clefting. Environmental factors that give rise to a higher risk for clefting include maternal smoking, maternal alcohol consumption, maternal deficiencies of zinc or folate, and exposure to certain medications such as retinoic or valproic acid. There are over 500 genetic conditions that are associated with clefting including single gene disorders, chromosomal syndromes and those for which an underlying genetic contribution has yet to be identified, such as [place] sequence. With the combination of current testing methods of chromosome microarray and panel or exome sequencing, at least 20% of individuals with CL/P will have an underlying genetic diagnosis identified; over 5% of these individuals having no family history prior. The most common single gene condition making of ~2% of clefting cases is Van mata Woude syndrome, which is a condition that affects the development of the face with lip pits and small or missing teeth also commonly found. Van mata Woude syndrome is an autosomal dominant condition meaning there is a 50% chance for other first degree relatives to also have the causative variant if identified in an affected individual. Most people have an affected parent. Occasionally, an individual who has a copy of the altered gene does not show any signs or symptoms of the disorder. Early identification with ultrasound and genetic testing does have its importance in treatment and care as more recent studies have found that at least 20% of individuals diagnosed with an underlying genetic condition only had additional clinical concerns and/or anomalies detected after the diagnosis by testing. If an underlying genetic condition is not identified for an individual with clefting, there remains an increased recurrence risk for other family members to be born with clefting given multifactorial inheritance (genes and environment). Current statistics estimate if one parent has clefting, the risk for their child having CL/P is ~3%, or ~7% for isolated CP. Discussed the family history of autism. Autism Spectrum Disorder is typically caused by a combination of underlying genetic and environmental factors. It is not always possible to identify an underlying genetic cause. In general, families with one affected child face an increased risk of an autism spectrum disorder in subsequent children. The recurrence risk of autism for full siblings has been estimated to be between 3% and 10%. This number is likely higher when multiple children (two or more) in the family have ASD. At this time, without a specific genetic cause, the risk for this would be increased from the general population given there are multiple second degree affected relatives. There is a 3-5% background risk for defects and a 1-2% background risk for intellectual disability and/or developmental delay for any given . Discussed Geraldine's age related risk for chromosomal aneuploidy, providing info about the conditions and age related risks. At Geraldine's age of 28 at delivery, the combined chance for trisomies 21, 18, and 13 is approximately 1 in 660 and the chance for Down syndrome is approximately 1 in 1030 in the second trimester. The following genetic screening and testing options were discussed: cell free DNA screening Cell free DNA screening was presented as an option to provide a specific risk assessment for common chromosome conditions that affect - Trisomy 21 (Down syndrome), Trisomy 18, Trisomy 13, and sex aneuploidies. I explained that this screen is not diagnostic but that it is highly sensitive with a detection rate of ~98% for Trisomy 21 and 18, and ~95% for the other aneuploidies. If a screening result were to come back high risk, a diagnostic test such as chorionic villus sampling or amniocentesis could be pursued. I also reviewed the utility of ultrasound scans in screening for common chromosome conditions including Trisomies 21, 18, and 13. The majority of Trisomy 18 and 13 cases will present with ultrasound markers and ~60% of pregnancies affected with Trisomy 21 (Down syndrome) will have observable ultrasound findings. A low risk cell free DNA screening result can be helpful in interpreting a potential ultrasound finding. Discussion: Geraldine presented today for genetic counseling regarding Blayne's family history of clefting. They were aware of the reason of referral and had no major concerns for today's appointments. We reviewed the family history of clefting. I explained the combination of Blayne's history of a lower lip pit combined with his brother's cleft lip and teeth anomalies is suspicious for Van mata Woude syndrome. This may also explain their history of autism. If Van mata Woude syndrome is the cause of Blayne's lip pit, there is a 50% chance for the to inherit the causative genetic variant and also have symptoms related to clefting and increased chance for learning challenges and mild delays. We also reviewed the possibility of multifactorial inheritance and that even without a known genetic cause, there is an increased risk for clefting based on the family history. If clefting were noted on ultrasound or after , genetic testing is recommended. We discussed the option of cell free DNA screening and utility for interpreting ultrasound findings. Geraldine had previously been offered screening by her provider and declined. She is not interested in cell free DNA screening at this time. Geraldine and Blayne verbalized understanding of the above information. They had no further questions for me at this time. Plan: Geraldine elected to proceed with the level II ultrasound after today? s consult. Please see the corresponding report from Dr. Alvares for final impressions and recommendations. Thank you for allowing us to participate in your patient's care. Please do not hesitate to contact me with any additional questions or concerns. Sincerely, Geraldine Sevilla MS, [facility] [place] Licensed Genetic Counselor Total time: 23 minutes in person Total time preparing to see this patient, [id number] time, and coordinating care time on the same calendar date: 27 minutes. [facility] [address], [address] [place] [address] Electronically signed by Geraldine Sevilla MS, [facility] [place] at 01/18/2024 12:21 PM CDT 01/18/2024 - 19w5d - Dixie Alvares MD Referred By: MARYLOU LITTLE Indications Code 19 weeks gestation of Z3A.19 Fam Hx of cleft lip ( FOB's brother) Anxiety + cannabis use Hx of HSV Meds: Buspar, Hydroxyzine, bASA Declined screening Detailed ultrasound today IMPRESSION: Intrauterine at 19w 5d. presentation is Cephalic. EFW 319 grams, percentile: 53. Growth parameters and estimated weight are appropriate for gestational age. No major structural anomalies identified. No markers for aneuploidy identified. Normal Deepest Vertical Pocket of amniotic fluid: 4.49 cm. Placental location: Anterior. There is no evidence of placenta previa. The transabdominal cervical length is 3.3 cm. RECOMMENDATIONS: -Return to primary provider for continued care. -Recommend growth ultrasound at 28 weeks (can be done with primary- please refer back to [facility] if preferred) COMMENT: Present findings are reassuring. The patient was seen by the Perinatologist today. The previous ultrasound and the records were reviewed. The results of today's ultrasound were communicated to the patient. Recommend growth ultrasound at 28 weeks given history of cannabis use in . Results reassuring today. Reviewed family history of cleft lip. Reviewed palate more difficult to assess on ultrasound, but no evidence of cleft lip or cleft palate as far as visualized. S/p genetic counseling visit today as well. New government regulations related to the 21st Century Cures act require that this note be released to the patient immediately, sometimes before the referring provider has been contacted. A portion of the information was presented verbally to the patient. The remainder is submitted as background for the referring provider, to be discussed as needed. Services Provided: Procedures Code DETAIL ANATOMY 27115.0 Progress Notes - OB Encounte r - 01/11/2024 - GA:18w5d 01/11/2024 - 18w5d - Marylou Little MD S: 28 y.o. at 18w5d, doing well, no concerns, taking PNV's and aspirin. Problems Anxiety - on buspirone, hydroxyzine at night Cannabis use in H/o HSV, not on suppression medication H/o mild asthma, no current use of medication FOB and FOB's brother with mild cleft lip at . No nausea. Starting to feel flutters. No vaginal bleeding/discharge. No new headache, vision changes, RUQ or epigastric pain, facial or extremity edema. Has concerns about anxiety related to labor. Discussed non-pharmacologic methods, birthing classes and connecting with library clerical assistant services. O: See flowsheet. A/P: 28 y.o. at 18w5d, doing well. 1. 18 weeks gestation of - AMB CONSULT TO MATERNAL- MEDICINE; Future - Pre-eclampsia risk: moderate (nulliparity, obesity), recommend start aspirin 81mg at 12 weeks gestation - H/o genital HSV, recommend acyclovir 400 mg three times daily as suppressive therapy at 36 weeks gestation - Anxiety - continue buspirone and hydroxyzine, follows with psych - Level 2 US at 20w due to family history of cleft palate in FOB - Reviewed labor precautions. - Return in 4wks for OB FU. Marylou Little MD .................... 01/11/2024 3:17 PM Progress Notes - OB Encounte r - 12/11/2023 - GA:14w2d 12/11/2023 - 14w2d - Marylou Little MD S: 28 y.o. at 14w2d, doing well, no concerns, taking PNV's and aspirin. Had vomiting for several days. It is improved again. Problems Anxiety - on buspirone, hydroxyzine at night Cannabis use in H/o HSV, not on suppression medication H/o mild asthma, no current use of medication FOB and FOB's brother with mild cleft lip at . No nausea. Good movement. No vaginal bleeding/discharge, loss of fluid, contractions, dysuria or other urinary symptoms. No headach, vision changes, RUQ or epigastric pain, facial or extremity edema. O: See flowsheet. A/P: 28 y.o. at 14w2d, doing well. 14 weeks gestation of going well. Motion sickness for travel recommend unisom or dramamine. Weight is down 4lbs from last month, monitor over next month. 2. Pre-eclampsia risk: moderate (nulliparity, obesity), recommend start aspirin 81mg at 12 weeks gestation 3. H/o genital HSV, recommend acyclovir 400 mg three times daily as suppressive therapy at 36 weeks gestation 4. Anxiety - continue buspirone and hydroxyzine, follows with psych 5. Discuss genetic testing, patient declined. I will recommend Level 2 US at 20w due to family history of cleft palate. 6. RTC 4 weeks. Marylou Little MD .................... 12/11/2023 3:54 PM Progress Notes - OB Encounte r - 11/11/2023 - GA:10w0d 11/11/2023 - 10w0d - Marylou Little MD Clinic Note: First OB Visit 11/11/2023 Geraldine Henley is a 27 y.o. with Estimated Date of Delivery: 06/08/24 consistent with early US at 5w6d, here today for a first visit. She is doing well, without any nausea, bleeding, discharge, or pain. Nausea has since resolved. Occasional headaches, self-resolve. Problems Anxiety - on buspirone, hydroxyzine at night Cannabis use in H/o HSV, not on suppression medication H/o mild asthma, no current use of medication FOB and MANOJ's brother with mild cleft lip at . SOCIAL HISTORY Marital Status: engaged, JOSEPHB Blayne MENSTRUAL HISTORY Patient's last menstrual period was 09/02/2023 (approximate).: Cycle Regularity: regular, every 28-30 days Early ultrasounds on 10/15 and 11/03 at 5w6d and 8w5d respectively OBSTETRICS HISTORY Previous Pregnancies: IAB x2 MEDICAL HISTORY Medical, surgical, family, and social history reviewed today and updated if necessary. Past Medical History: . Date Anxiety Asthma exercise induced - inhaler prn Depression Herpes Marijuana use 2009 Migraine headache Past Surgical History: . Laterality Date COLONOSCOPY DIAGNOSTIC 06/02/2022 normal, repeat at age 46 ESOPHAGOGASTRODUODENOSCOPY 06/02/2022 normal NO PAST SURGERIES Bee venom protein (honey bee), Chocolate flavor, Lexapro [escitalopram], and Nickel Family History Problem Relation Age of Onset No Known Problems Mother No Known Problems Father Addiction problem Brother Autism Brother No Known Problems Maternal Grandmother Hypertension Maternal Grandfather Cancer Maternal Grandfather No Known Problems Paternal Grandmother No Known Problems Paternal Grandfather Anesthesia Problem No Family History Current Outpatient Medications: busPIRone (BUSPAR) 10 mg tablet, Take 1 Tablet (10 mg) by mouth two times daily., Disp: 60 Tablet, Rfl: 2 cholecalciferol, Vitamin D3, (Vitamin D-3) 5,000 unit tab tablet, Take 1 Tablet (5,000 units) by mouth once daily., Disp: 90 Tablet, Rfl: 3 doxylamine-pyridoxine, vit B6, 10-10 mg TbEC, Take 1 Tablet by mouth two times daily., Disp: , Rfl: EPINEPHrine (EPIPEN) 0.3 mg/0.3 mL auto-injector, Inject 0.3 mg intramuscular each time if needed for Allergic Reaction., Disp: 2 Each, Rfl: 0 famotidine (PEPCID) 40 mg tablet, Take 1 Tablet (40 mg) by mouth once daily., Disp: 90 Tablet, Rfl: 3 hydrOXYzine HCL (ATARAX) 25 mg tablet, TAKE 1 TABLET(25 MG) BY MOUTH EVERY 8 HOURS NEEDED FOR ANXIETY, Disp: 30 Tablet, Rfl: 0 medication order composer, Vitamin d3 2000 unit capsules, Disp: , Rfl: ondansetron (ZOFRAN ODT) 4 mg disintegrating tablet, Place 1 Tablet (4 mg) on the tongue every 8 hours if needed for Nausea/Vomiting., Disp: 30 Tablet, Rfl: 0 vitamin chewable (NATACHEW) 29 mg iron- 1 mg chew, Chew 1 Tablet by mouth once daily., Disp: , Rfl: prochlorperazine (COMPAZINE) 5 mg tablet, Take 1-2 Tablets (5-10 mg) by mouth every 6 hours if needed for Nausea/Vomiting., Disp: 30 Tablet, Rfl: 0 Medications have been reviewed by me and are current to the best of my knowledge and ability. RISK FACTORS Alcohol/day: 0 Meds/Drugs/ETOH Since LMP: Yes - Cannabis Control Method: none High Risk Behavior: none INFECTION HISTORY Current Drug Use: marijuana HIV Risk Evaluation: low risk Hepatitis B Risk Evaluation: low risk Hepatitis B Immunized: yes Personal History of Genital Herpes: yes Partner History of Genital Herpes: unknown Rash/Viral Illness Since LMP: No History of STD: yes REVIEW OF SYSTEMS: General- No fevers, chills, or night sweats. No unintended weight gain/loss. Appetite NL. HEENT- No sinus pain, visual change, congestion or throat pain. No epistaxis or ear pain or drainage. No changes in vision (blurry vision, diplopia, etc) CV- No chest pain, palpitations, change in exercise tolerance. No leg claudication. Lungs- No dyspnea or cough. No hemoptysis. No shortness of breath. GI- No constipation or diarrhea. Denies GERD sx's. No melena or hematochezia. - No dysuria, frequency, nocturia or hematuria Musculoskeletal- No joint pain or noticeable erythema or swelling. No myalgias. Neuro- No headaches, numbness, tingling, dizziness, lightheadedness, change in strength or in speech. No focal weakness. Heme- No bleeding or bruising. Skin- No skin changes. No new or changing moles or rashes. Psychosocial- No depressive symptoms or anxiety. PHYSICAL EXAM BP 112/73 (Cuff Site: Right Arm, Position: Sitting, Cuff Size: Adult Large) Pulse 95 Wt 92.6 kg (204 lb 2 oz) LMP 09/02/2023 (Approximate) SpO2 99% BMI 31.78 kg/m?? Gen: well developed/well nourished, no acute distress HEENT: Normocephalic/atraumatic. Mucous membranes moist. Resp: non-labored breathing, Abd: soft, non-tender Psych: Appropriate affect and mood. Good eye contact. Speech fluent and linear. Not responding to internal stimuli. OB: heart beat visualized with US, unable to confirm rate; see OB flow sheet ASSESSMENT/PLAN: ICD-10-CM 1. 10 weeks gestation of Z3A.10 2. Anxiety F41.9 3. Genital herpes simplex, unspecified site A60.00 4. Cannabis use, uncomplicated F12.90 1. First OB: Satisfactory exam. Demonstrates appropriate and health seeking behaviors toward her . Verbalizes good understanding of care schedule and the importance of coming to each visit as scheduled. Has supportive family relationship. - Reviewed lab results. 2. Pre-eclampsia risk: moderate (nulliparity, obesity), recommend start aspirin 81mg at 12 weeks gestation 3. H/o genital HSV, recommend acyclovir 400 mg three times daily as suppressive therapy at 36 weeks gestation 4. Anxiety - continue buspirone and hydroxyzine, follows with psych 5. Discuss genetic testing at next visit - may need additional counseling given family history of cleft palate. 6. RTC 4 weeks. She was encouraged to call the office with any questions or concerns. Marylou Little MD .................... 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 Name of Partner or Father of baby: [...] of estimated date of delivery: No Thalassemia (Salvadorean, Citizen Of [place], Mediterranean, or background): MCV less than 80: No Neural tube defect (Meningomyelocele, Spina bifida, or Anencephaly): No Congenital heart defect: No Down syndrome: No Abel-Sachs (Ashkenazi Samaritan, Cajun, Croatian [place]): No Jerry disease (Ashkenazi Samaritan): No Familial dysautonomia (Ashkenazi Samaritan): No Sickle cell disease or trait (): No Hemophilia or other blood disorders: No Muscular dystrophy: No Cystic fibrosis: No Gunjan's chorea: No Intellectual disability and/or autism: Yes [...] of Beginnings book and book inserts, discussed [id number] medications, and follow up. - Encouraged patient to call clinic at [phone] with any vaginal bleeding, fluid leaking from [...] Sign Reading Time Taken Comments Blood Pressure 111/75 03/02/2024 3:56 PM CDT Pulse 85 03/02/2024 3:56 PM CDT Temperature 36.9 ??C (98.5 ??F) 10/19/2023 9:54 AM CD T Respiratory Rate 14 05/14/2022 12:06 PM HELMET HAT SWEATBAND PUNCHER Oxygen Saturation 99% 03/02/2024 3:56 PM CDT Inhaled Oxygen Concentration - - Weight 102.1 kg (225 lb) 03/02/2024 3:56 PM CDT Height 170.7 cm (5' 7.21) 10/19/2023 9:54 AM CD T Body Mass Index 35.03 10/19/2023 9:54 AM CDT Plan of Treatment Upcoming Encounters Date Type Department Care Team (Late st Contact Info) Description 03/23/2024 3:30 PM CDT OB Encounter [facility] [address] [facility] [place] [address] Marylou Little MD [address] [place] [address] 04/06/2024 3:30 PM CDT OB Encounter [facility] [address] [place] [address] Marylou Little MD [address] [place] [address] 04/20/2024 3:30 PM CDT OB Encounter [facility] [address] [place] [address] Marylou Little MD [address] [place] [address] 05/04/2024 3:30 PM CDT OB Encounter [facility] [address] [place] [address] Marylou Little MD [address] [place] [address] 05/18/2024 3:30 PM HEL[employer] P[employer]ER OB Encounter [facility] [address] [place] [address] Marylou Little MD [address] [place] [address] 05/24/2024 2:00 PM HEL[employer] P[employer] Telemedicine [facility] [address] [place] [address] Talia Montelongo, KENNY [address] [place] [address] Health Maintenance Due Date Last Done Comments Pneumococcal series for age 6-64 (1 of 2 - PCV) 2002 Pap test for age 21-65 05/25/2020 05/25/2017 COVID-19 vaccine series (3 - season) 2024 11/29/2020, 11/01/2020 Influenza for age 9-49 03/06/2024 RSV vaccine for adults or (1 - Risk 1-dose series) 04/13/2024 BMI (ht and wt on same day) for age 18+ 10/18/2024 10/19/2023, 10/14/2023, 05/27/2022, Additional history exists Depression screening for age 12+ 02/14/2025 02/15/2024, 11/04/2023, 10/19/2023, Additional history exists Tetanus booster 06/14/2029 06/14/2019, 02/26/2009 Tdap Completed 06/14/2019, 02/26/2009 HIV for age 15-65 Completed 10/14/2023 Hepatitis C screening for ag e 18-79 Completed 10/14/2023 Procedures Procedure Name Priority Date/Time Associated Diagnosis Comments US OB FOLLOW UP ANY TRI SINGLE TA Routine 03/16/2024 1:12 PM CDT Encounter for supervision of normal first in second trimester TREPONEMA PALLIDUM Routine 03/02/2024 4: 41 PM CDT Encounter for supervision of normal first in second trimester HEMOGLOBIN Routine 03/02/2024 4:41 PM CDT Encounter for supervision of normal first in second trimester GLUCOSE,GESTATIONAL Routine 03/02/2024 4 :41 PM CDT Encounter for supervision of normal first in second trimester US OB DETAIL ANATOMY SINGLE Routine 01/18/2024 10:40 AM CDT High-risk in second trimester ANTI HIV 1/2 Routine 10/14/2023 4:20 PM CDT confirmed by positive urine test ANTI HCV Routine 10/14/2023 4:20 PM CDT confirmed by positive urine test CARROT GRADER INSPECTOR THIN PREP PAP SCREEN IMAGED Routine 05/25/2017 4:49 PM HEL[employer] HAT SWEATBAND PUNCHER Cervical cancer screening from Last 3 Months or Most Recently Relevant to Health Maintenance Results * US OB FOLLOW UP ANY TRI SINGLE TA (03/16/2024 1:12 PM CDT) Anatomical Region Laterality Modality , 2or 3 TRIMESTER Ultrasound 03/16/2024 2:48 PM CDT Impressions 03/16/2024 2:48 PM CDT Sonographic gestational age 28 weeks 1 day and sonographic due date of 06/07/2024. Good correlation with dates. Normal interval growth. Estimated weight 33rd percentile. Abdominal circumference 31st percentile. Dictated by Juma Mcnally MD @ 03/16/2024 2:48:47 PM (Electronically Signed) Narrative 03/16/2024 2:48 PM CDT For Patients: ??As a result of the Cures Act, medical imaging exams and procedure reports are released immediately into your electronic medical record. ??You may view this report before your referring provider. ??If you have questions, please contact your health care provider. INDICATION: Third trimester scan, evaluate growth. COMPARISON: 01/18/2024 TECHNIQUE: Real time eckert scale imaging of the fetus was performed. FINDINGS: Sonographic imaging demonstrates a single living intrauterine gestation. ??Fetus demonstrates a regular cardiac rate of 127 beats per minute. ??Fetus has a vertex position. The placenta lies anteriorly without evidence of placenta previa. ??Amniotic fluid volume appears normal and there is a single deepest vertical pocket: 6.7 cm. The estimated weight is 1144gm which lies at the 33rd %. ??On the prior OB ultrasound exam dated 01/18/2024 the estimated weight was at the 55th%. The biometric indices all lie within normal range. ??The HC/AC ratio measures 1.10 range (1.05-1.22). Procedure Note Juma Mcnally MD - 03/16/2024 For Patients: As a result of the 21st Century Cures Act, medical imagingexams and procedure reports are released immediately into your electronicmedical record. You may view this report before your referring provider.If you have questions, please contact your health care provider. INDICATION: Third trimester scan, evaluate growth. COMPARISON: 01/18/2024 TECHNIQUE: Real time eckert scale imaging of the fetus was performed. FINDINGS: Sonographic imaging demonstrates a single living intrauterine gestation.Fetus demonstrates a regular cardiac rate of 127 beats per minute. Fetushas a vertex position. The placenta lies anteriorly without evidence ofplacenta previa. Amniotic fluid volume appears normal and there is asingle deepest vertical pocket: 6.7 cm. The estimated weight [id number] which lies at the 33rd %. On the prior OB ultrasound exam dated01/18/2024 the estimated weight was at the 55th%. The fetalbiometric indices all lie within normal range. The HC/AC ratio measures1.10 range (1.05- 1.22). IMPRESSION: Sonographic gestational age 28 weeks 1 day and sonographic due date of06/07/2024. Good correlation with dates. Normal interval growth. Estimated weight 33rd percentile. Abdominal circumference 31stpercentile. Dictated by Juma Mcnally MD @ 03/16/2024 2:48:47 PM (Electronically Signed) Marylou Little MD US * TREPONEMA PALLIDUM (03/02/2024 4:41 PM CDT) TREPONEMA PALLIDUM Non-Reacti ve Non-Reacti ve 03/03/2024 2:39 AM CDT [facility] Blood BLOOD SPECIMEN / Unknown Venipuncture / Unknown 03/02/2024 4:41 PM CDT 03/02/2024 4:43 PM CDT Marylou Little MD SEND OUTS [facility] [address] [place] [address], [place] * (ABNORMAL) HEMOGLOBIN (03/02/2024 4:41 PM CDT) HEMOGLOBIN 11.4(L) 12.0 - 16.0 g/dL 03/02/2024 4:47 PM CDT [facility] MCV 95 80 - 100 fL 03/02/2024 4:47 PM CDT [facility] Blood BLOOD SPECIMEN / Unknown Venipuncture / Unknown 03/02/2024 4:41 PM CDT 03/02/2024 4:43 PM CDT Marylou Little MD HEMATOLOGY Performing Organization Address [facility]/ZIP Co de Phone Number [facility] [address] [place] [address], [place] [phone] * GLUCOSE,GESTATIONAL (03/02/2024 4:41 PM CDT) GLUCOSE,GESTAT IONAL 100 70 - 139 mg/dL 03/02/2024 4:49 PM CDT [facility] Blood BLOOD SPECIMEN / Unknown Venipuncture / Unknown 03/02/2024 4:41 PM CDT 03/02/2024 4:43 PM CDT Marylou Little MD CHEMISTRY Performing Organization Address [facility] Co de Phone Number [facility] [address] [place] [address], [place] [phone] * US OB DETAIL ANATOMY SINGLE (01/18/2024 10:40 AM CDT) Anatomical Region Laterality Modality , 2or 3 TRIMESTER Ultrasound 01/18/2024 9:18 AM CDT Narrative 01/18/2024 10:39 AM CDT Referred By: MARYLOU ??ANABEL ?? Indications Code 19 weeks gestation of Z3A.19 Fam Hx of cleft lip ( FOB's brother) Anxiety + cannabis use Hx of HSV Meds: Buspar, Hydroxyzine, bASA Declined screening Detailed ultrasound today IMPRESSION: Intrauterine at 19w 5d. presentation is Cephalic. EFW 319 grams, percentile: 53. ?? Growth parameters and estimated weight are appropriate for gestational age. ? No major structural anomalies identified. No markers for aneuploidy identified. Normal Deepest Vertical Pocket of amniotic fluid: 4.49 ??cm. Placental location: Anterior. ?? There is no evidence of placenta previa. The transabdominal cervical length is 3.3 cm. ?? RECOMMENDATIONS: -Return to primary provider for continued care. -Recommend growth ultrasound at 28 weeks (can be done with primary- please refer back to [facility] if preferred) COMMENT: Present findings are reassuring. The patient was seen by the Perinatologist today. ??The previous ultrasound and the records were reviewed. ??The results of today's ultrasound were communicated to the patient. Recommend growth ultrasound at 28 weeks given history of cannabis use in . Results reassuring today. Reviewed family history of cleft lip. Reviewed palate more difficult to assess on ultrasound, but no evidence of cleft lip or cleft palate as far as visualized. S/p genetic counseling visit today as well. New government regulations related to the Cures act require that this note be released to the patient immediately, sometimes before the referring provider has been contacted. ??A portion of the information was presented verbally to the patient. ??The remainder is submitted as background for the referring provider, to be discussed as needed. Services Provided: Procedures Code DETAIL ANATOMY 79392.0 ?? Procedure Note Dixie Alvares MD - 01/18/2024 Referred By: MARYLOU LITTLE IndicationsCode 19 weeks gestation of oyrdtorquE4C.19 Fam Hx of cleft lip ( FOB's brother) Anxiety + cannabis use Hx of HSV Meds: Buspar, Hydroxyzine, bASA Declined screening Detailed ultrasound today IMPRESSION: Intrauterine at 19w 5d. presentation is Cephalic. EFW 319 grams, percentile: 53. Growth parameters and estimated weight are appropriate forgestational age. No major structural anomalies identified. No markers for aneuploidy identified. Normal Deepest Vertical Pocket of amniotic fluid: 4.49 cm. Placental location: Anterior. There is no evidence of placenta previa. The transabdominal cervical length is 3.3 cm. RECOMMENDATIONS: -Return to primary provider for continued care. -Recommend growth ultrasound at 28 weeks (can be done with primary- pleaserefer back to [facility] if preferred) COMMENT: Present findings are reassuring. The patient was seen by thePerinatologist today. The previous ultrasound and the records were reviewed. The resultsof today's ultrasound were communicated to the patient. Recommend growth ultrasound at 28 weeks given history of cannabis use inpregnancy. Results reassuring today. Reviewed family history of cleft lip. Reviewed palatemore difficult to assess on ultrasound, but no evidence of cleft lip or cleft palate as faras visualized. S/p genetic counseling visit today as well. New government regulations related to the Cures act requirethat this note be released to the patient immediately, sometimes before the referringprovider has been contacted. A portion of the information was presented verbally to thepatient. The remainder is submitted as background for the referring provider, to be discussed asneeded. Services Provided: ProceduresCode DETAIL [id number] Marylou Little MD [place] * ANTI HCV (10/14/2023 4:20 PM CDT) HEPATITIS C ANTIBODY Non-Reacti ve Non-React claire 10/15/2023 2:26 PM CDT [facility] Comment:Please note, per www .CDC.gov: If a patient is known to be at high risk of HCV infection, or is symptomatic, and the physician's suspicion of HCV infection is high, HCV RNA testing is often employed and is of diagnostic value, even after an initial negative anti-HCV test result. Blood BLOOD SPECIMEN / Unknown Venipuncture / Unknown 10/14/2023 4:20 PM CDT 10/14/2023 4:22 PM CDT Marylou Little MD SEND OUTS [facility] [address] [place] [address], [place] * ANTI HIV 1/2 (10/14/2023 4:20 PM CDT) HIV-1/HIV-2 SCREEN Non-Reacti ve Non-Reacti ve 10/15/2023 2:24 PM CDT [facility] Comment:HIV-1 p24 and HIV-1/ HIV-2 Ab Not Detected. Blood BLOOD SPECIMEN / Unknown Venipuncture / Unknown 10/14/2023 4:20 PM CDT 10/14/2023 4:22 PM CDT Marylou Little MD SEND OUTS [facility] [address] [place] [address], * CARROT GRADER INSPECTOR THIN PREP PAP SCREEN IMAGED (05/25/2017 4:49 PM HELMET HAT SWEATBAND PUNCHER) Case Report Gynecologic Cytology Report ? Case: [id number] ? Authorizing Provider: ??Aureliano Seymour MD ??Collected: ? 05/25/20171648 ? Ordering Location: ? [facility] ?? Received: ?05/25/20171648 ? Clinic ? First Screen: ?Veronica Ventura ? Specimen: ?CARROT GRADER INSPECTOR ThinPrep Vial Screening, Cervical ? 06/05/2017 2:32 PM [facility] INTERPRETATION/ RESULT NEGATIVE FOR INTRAEPITHELIAL LESION OR MALIGNANCY (NIL) (none) 06/05/2017 2:32 PM [facility] IMEN ADEQUACY Satisfactory for evaluation Endocervical component present 06/05/2017 2:32 PM [facility] HPV REQUEST HPV if ASCUS 06/05/2017 2:32 PM [facility] Date of LMP 05/25/2017 06/05/2017 2:32 PM [facility] Last Pap Date first pap 06/05/2017 2:32 PM [facility] Last Pap Result First Pap/Unknown 2:32 PM [facility] Abnormal Pap or [place] Bx in last 5 years No 06/05/2017 2:32 PM [facility] Menstrual Status Regular Periods 06/05/2017 2:32 PM [facility] [place] Bx Done Today No 06/05/2017 2:32 PM [facility] Additional Information None given 06/05/2017 2:32 PM [facility] Automated Review Successful 06/05/2017 2:32 PM [facility] Comment:Specimen processed s uccessfully by automated supportive employment case manager device, ThinPrep Imaging System, [employer] Note The pap test is a screening technique, not a diagnostic procedure. ??It is used primarily to screen for squamous cancers and precursor lesions. ??Published studies have shown that it is subject to both false negative and false positive results. ??The pap test should not be used as the sole means to diagnose or exclude pre-malignant and malignant lesions. Interpreted at [facility] ([facility], [facility], [facility], [facility], [facility], [facility], [facility]) 06/05/2017 2:32 PM HELMET HAT SWEATBAND PUNCHER [facility] Other (Cervical) 05/25/2017 4:49 PM HELMET HAT SWEATBAND PUNCHER 05/25/2017 4:49 PM HELMET HAT SWEATBAND PUNCHER Aureliano Seymour MD PATHOLOGY/[facility] [address] [place] [address], from Last 3 Months or Most Recently Relevant to Health Maintenance Care Teams Sales Recruitment Specialist Relationship Specialty Start Date End Date Marylou Little MD [address] [place] [address] PCP - General Family Practice 10/15/23
--- OUTSIDE RECORDS SUMMARY | 2024-03-17 10:53 | XMS_ITS | Referral Summary ---
Author Organization [facility] Address [address] [place] [address]. [place] [address] Care Team Providers Care Dredge Pump Operator Name Role Phone Clinic, [facility] Primary Care Provider Allergies Active Allergy Reactions [...] of Treatment Not on file Care Teams Dredge Pump Operator Relationship Specialty Start Date End Date Clinic, [facility] [address] [place], [place] [id number] PCP - General 01/27/20
--- OUTSIDE RECORDS SUMMARY | 2024-03-17 10:53 | XMS_ITS | Clinical Summary ---
Author Organization [facility] Address [address] [place] [address]. [place] [address] Care Team Providers Care Cnc Service Engineer Name Role Phone Clinic, [facility] Primary Care Provider Allergies Active Allergy Reactions [...] YEARLY PREVENTIVE VISIT 1996 HIV SCREENING 12/02/2011 HEPATITIS C SCREENING 2014 PAP 2017 PHQ-2 (once per calendar year) 2023 COVID-19 Vaccine (3 - season) 2024 11/29/2020, 11/01/2020 INFLUENZA VACCINE (#1) 2024 DTAP/TDAP/TD IMMUNIZATION (8 - Td or Tdap) 06/14/2029 06/14/2019, 02/26/2009, 02/21/2002, Additional history exists HEPATITIS B IMMUNIZATION Completed 998, 04/07/1997, 02/03/1997 HPV IMMUNIZATION Aged Out No longer e ligible based on patient's age to complete this topic MENINGITIS IMMUNIZATION Aged Out No l onger eligible based on patient's age to complete this topic Pneumococcal Vaccine: Pediatrics (0 to 5 Years) and At-Risk Patients (6 to 64 Years) Aged Out No longer eligible based on patient's age to complete this topic RSV MONOCLONAL ANTIBODY Aged Out No l onger eligible based on patient's age to complete this topic Care Teams Cnc Service Engineer Relationship Specialty Start Date End Date [facility], [address] [address] PCP - General 01/27/20
[2024-03-17 11:11] VITALS: BP 124/68; PULSE 90
[2024-03-17 11:26] VITALS: BP 123/65; PULSE 88
[2024-03-17 11:29] LABS: Hematocrit 31.7 % (33.0-51.0); Hemoglobin* 10.7 gm/dL (12.0-16.0); Mean Corpuscular HGB Conc 34 gm/dL (32-36); Mean Corpuscular Hemoglobin 32 pg (26-34); Mean Corpuscular Volume 96 fL (80-100); Platelet Count* 206 K/uL (140-440); Red Blood Count 3.32 m/uL (4.00-5.20); White Blood Count* 11.11 K/uL (4.50-11.00)
[2024-03-17 11:34] LABS: Slide Review Reflex No
[2024-03-17 11:52] VITALS: BP 122/72; PULSE 79; RESP 18; TEMP 36.6
[2024-03-17 11:54] LABS: Alanine Aminotransferase* 15 U/L (4-35); Aspartate Amino Transferase* 19 U/L (12-35); Blood Urea Nitrogen* 9 mg/dL (5-24); Creatinine* 0.5 mg/dL (0.5-1.5); Estimated Glomerular Filt Rate 132 ml/min
[2024-03-17] MEDS: ACETAMINOPHEN 500 MG TABLET 1000 MG PO (12:13)
[2024-03-17 12:45] LABS: Total Protein Urine 6 mg/dL
[2024-03-17 12:47] LABS: Creatinine Urine 119.3 mg/dL; Protein Creatinine Ratio Urine 0.05 (0-0.19)
--- NOTE | 2024-03-17 13:25 | PC.OBNST ---
NST Note NST Note Start: 03/17/24 10:53 Freq: ONCE Status: Active Protocol: Document 03/17/24 13:14 [facility] (Rec: 03/17/24 13:15 [facility] Desktop) NST Note 3 Para (# of births) 0 EDC 06/08/24 Gestational Age In Weeks & Days 28 Weeks & 1 Days Patient Presented with Complaint(s) of Headache Reactive Yes Appropriate for Gestational Age Yes REGLA Fernandez Date 03/17/24 Reactive Yes Appropriate for Gestational Age Yes REGLA Quinones Date 03/17/24 OB NST charge Yes Complete NST Note via Write Note Yes The provider's electronic signature indicates the NST is reactive/appropriate for gestational age. *Note to provider: If an addendum is required, open the patient's chart and click on the note under the Nurse/Allied Health tab.
== END 2024-03-17 13:15 | disposition home or self-care (01) ==
LOC: OB OUT 10:50 → OB 10:53
PROVIDERS: PCP Student in an Organized Health Care Education/Training Program; Visit Provider Surgery
DX: O26.893 Other specified pregnancy related conditions, third trimester (principal); R51.9 Headache, unspecified; Z3A.28 28 weeks gestation of pregnancy
CPT/HCPCS: 36415; 59025; 82565; 82570; 84156; 84450; 84460; 84520; 85027; G0463; A9270

== ENCOUNTER 2024-06-08 16:06 | Outpatient (CLI) | payer BC, SELFPAY ==
[2024-06-08] VITALS (20 sets, daily range): BP systolic 117–139; BP diastolic 57–76; PULSE 86–129; RESP 20; TEMP 36.7; O2SAT 89–99
--- OUTSIDE RECORDS SUMMARY | 2024-06-08 16:07 | XMS_ITS | Clinical Summary ---
Author Organization [facility] Address [address] [place] [address]. [place] [address] Care Team Providers Care Marine Engineering Consultant Name Role Phone Clinic, [facility] Primary Care Provider Allergies Active Allergy Reactions Criticality Noted Date Comments Nickel Hives 01/27/2020 Medications EPINEPHrine (ANY BX GENERIC EQUIV) 0.3 MG/0.3ML injection 2-pack Inject 0.3 mLs (0.3 mg) into the muscle once as needed for anaphylaxis 1 each 1 0 Active predniSONE (DELTASONE) 20 MG tablet Take two tablets (= 40mg) each day for 5 (five) days 10 tablet 0 Active Social History Tobacco Use Types Packs/Day Years Used Date Smoking Tobacco: Never Assessed Adolescent Education Answer Date Record ed Getting School Help Needed Not on file 03/28 Comments No Sex and Gender Information Value Date Recorded Sex Assigned at Not on file Legal Sex Female 11:44 AM CDT Gender Identity Not on file Sexual Orientation Not on file Last Filed Vital Signs Vital Sign Reading Time Taken Comments Blood Pressure 133/86 01/28/2023 2:25 PM CDT Pulse 82 01/28/2023 2:25 PM CDT Temperature 36.6 C (97.9 F) 01/28/2023 10:28 AM CDT Respiratory Rate 20 01/28/2023 10:28 AM CDT [...] (once per calendar year) 2023 COVID-19 Vaccine (2023- season) 2024 11/29/2020, 11/01/2020 INFLUENZA VACCINE (#1) 2024 DTAP/TDAP/TD IMMUNIZATION (8 - Td or Tdap) 06/14/2029 06/14/2019, 02/26/2009, 02/21/2002, Additional history exists RSV VACCINE (1 - 1-dose 75+ series) 12/02/2071 HEPATITIS B IMMUNIZATION Completed 998, 04/07/1997, 02/03/1997 [...] on patient's age to complete this topic Insurance [place] [employer] Care Teams Marine Engineering Consultant Relationship Specialty Start Date End Date [address] [address] PCP - General 01/27/20
--- OUTSIDE RECORDS SUMMARY | 2024-06-08 16:07 | XMS_ITS | Referral Summary ---
Author Organization [facility] Address [address] [place] [address]. [place] [address] Care Team Providers Care Interpersonal Communications Professor Name Role Phone Clinic, [facility] Primary Care Provider Allergies Active Allergy Reactions [...] CDT Plan of Treatment Not on file Insurance [facility] [employer] Care Teams Interpersonal Communications Professor Relationship Specialty Start Date End Date [facility], [address] [address] PCP - General 01/27/20
--- OUTSIDE RECORDS SUMMARY | 2024-06-08 16:08 | XMS_ITS | Clinical Summary ---
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 Active prochlorperazine (COMPAZINE) 5 mg tabletIndications:Na usea and vomiting of , antepartum Take 1-2 Tablets (5-10 mg) by mouth every 6 hours if needed for Nausea/Vomiting. 30 Tablet 10/16/2023 Active aspirin chewable 81 mg chewable tabletIndications:10 weeks gestation of Chew 1 Tablet (81 mg) by mouth once daily with a meal. 90 Tablet 2 11/25/2023 Active hydrOXYzine HCL (ATARAX) 25 mg tabletIndications:Ge neralized anxiety disorder TAKE 1 TABLET(25 MG) BY MOUTH EVERY 8 HOURS NEEDED FOR ANXIETY 30 Tablet 11/18/2023 Active busPIRone (BUSPAR) 10 mg tabletIndications:Ge neralized anxiety disorder Take 1 Tablet (10 mg) by mouth two times daily. 180 Tablet 3 03/23/2024 Active valACYclovir (VALTREX) 500 mg tabletIndications:Ge nital herpes simplex, unspecified site Take 1 Tablet (500 mg) by mouth two times daily. Start at 36 weeks gestation (05/11/2024) to prevent active HSV lesions at time of delivery. 60 Tablet 2 05/11/2024 Active clotrimazole (LOTRIMIN) 1 % creamIndications:Yea st infection of the skin Apply topically to affected area(s) two times daily. 45 g 06/01/2024 Active Active Problems Problem Noted Date Diagnosed Date [facility], Supervision of high-risk 01/12/20 Overview (01/14/2024): Geraldine Henley : 1995 REFERRING PROVIDER: Marylou Little MD, [facility], Primary provider approves scheduling of recommended ultrasounds/testing: Yes [facility] ULTRASOUND/TESTING PATIENT Support person name: Blayne [...] TO PATIENT CARE TEAM GENETICS: Declines/Not Done [facility] 01/18/24 CARE COORDINATION: PERTINENT LABS: Labs reviewed? Yes Normal? Yes Blood type: A Rh Positive Antibody screen: Negative PERTINENT MEDS: Buspar Hydroxyzine bASA PROCEDURES: IF FGR <10% or EFW <2000 grams: Add FGRPCOM PLAN OF CARE: Original and updated POC 10/14/2023 Overview (06/07/2024): Estimated Date of Delivery: 06/08/24 Patient's last menstrual period was 09/02/2023 (approximate). 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 28wk labs: GLUCOSE,GESTATIONAL Date Value Ref Range Status 03/02/2024 100 70 - 139 mg/dL Final HEMOGLOBIN Date Value Ref Range Status 03/02/2024 11.4 (L) 12.0 - 16.0 g/dL Final TREPONEMA PALLIDUM Date Value Ref Range Status 03/02/2024 Non-Reactive Non-Reactive Final Last Tdap: 03/23/24 Last Flu vaccine: none OB Labs: ABORH Date Value Ref Range Status 10/14/2023 A Rh Positive Final ANTIBODY SCREEN Date Value Ref Range Status 10/14/2023 Negative Negative Final TREPONEMA PALLIDUM Date Value Ref Range Status 03/02/2024 Non-Reactive Non-Reactive Final HBSAG Date Value Ref Range Status 10/14/2023 Nonreactive Nonreactive Final HEPATITIS C ANTIBODY Date Value Ref Range Status 10/14/2023 Non-Reactive Non-Reactive Final Comment: Please note, per www.CDC.gov: If a patient is known to be at high risk of HCV infection, or is symptomatic, and the physician's suspicion of HCV infection is high, HCV RNA testing is often employed and is of diagnostic value, even after an initial negative anti-HCV test result. HIV-1/HIV-2 SCREEN Date Value Ref Range Status 10/14/2023 Non-Reactive Non-Reactive Final Comment: HIV-1 p24 and HIV-1/HIV-2 Ab Not Detected. VARICELLA ZOSTER IGG ANTIBODY Date Value Ref Range Status 10/14/2023 581.1 >=165.0 INDEX Final INTERPRETATION Date Value Ref Range Status 10/14/2023 Positive Final Comment: Presence of detectable IgG antibodies. A positive result generally indicates exposure to the virus or previous vaccination, but is not an indication of active infection or stage of disease. HEMOGLOBIN Date Value Ref Range Status 03/02/2024 11.4 (L) 12.0 - 16.0 g/dL Final PLATELET COUNT Date Value Ref Range Status 10/16/2023 215 140 - 440 thou/cu mm Final CHLAMYDIA PROBE Date Value Ref Range Status 05/25/2017 Negative Final Allergies Allergen Reactions Bee Venom Protein (Honey [...] Encounters Date Type Department Care Team Description 06/08/2024 2:40 PM RN BEHAVIORAL HEALTH OB Encounter [facility] [[email or web address] [address] [place] [address] Marylou Little MD Care (40 weeks/Painfully swollen feet/Right arm keeps falling asleep/More contractions - not able to time. ) 06/08/2024 Travel 06/01/2024 2:40 PM RN BEHAVIORAL HEALTH OB Encounter [facility] [[email or web address]] [address] [place] [address] Marylou Little MD Care (39 weeks 0 days); Abscess (cyst in the groin returned, popped on its own. Now has a rash in the same area. Believes urine leaking today at work. ) 06/01/2024 Travel 05/27/2024 1:50 PM RN BEHAVIORAL HEALTH OB Encounter [facility] [[email or web address]] [address] [place] [address] Marylou Little MD Care (38 weeks 2 days); Follow Up (cyst - improving ) 05/27/2024 Travel 05/24/2024 2:40 PM RN BEHAVIORAL HEALTH Office Visit [facility] [[email or web address]] [address] [place] [address] Marylou Little MD Lump (Painful lump in perineum area . Started about 1 week ago. over the last 24 hours worsened) 05/24/2024 2:00 PM RN BEHAVIORAL HEALTH Telemedicine [facility] [[email or web address]] [address] [place] [address] Talia Montelongo NP Telehealth; Medication Management (Things are going okay/Having physical pain that are getting bad, see pcp today also) 05/24/2024 Travel 05/18/2024 3:30 PM RN BEHAVIORAL HEALTH OB Encounter [facility] [[email or web address]] [address] [place] [address] Marylou Little MD Care (37 weeks ) 05/18/2024 Travel 05/04/2024 3:30 PM CDT OB Encounter [facility] [[email or web address]] [address] [place] [address] Marylou Little MD Care (35 weeks 0 days); Dizziness (1 dizzy spell today. thinks it may be from not eating. resolved after snacking) 05/04/2024 Travel 04/20/2024 3:30 PM CDT OB Encounter [facility] [[email or web address]] [address] [place] [address] Marylou Little MD Care (33 weeks /Stomach will get hard for a couple minutes and go away. ) 04/20/2024 Travel 04/11/2024 2:40 PM CDT OB Encounter [facility] [[email or web address]] [address] [place] [address] Marylou Little MD Care (31 weeks 5 days /heartburn/back pain/tired); Lump (Lump on left breast. Unable to find it today) 04/11/2024 Travel 03/23/2024 3:30 PM CDT OB Encounter [address] [address] Marylou Little MD Care (29 weeks) 03/23/2024 Travel 03/22/[address] [address] Talia Montelongo NP Refill Request (Buspirone) 03/17/2024 Orders Only [facility] Scanner 1 scan: (1-Ord) [facility], MULTIPLE LABS, 03/17/2024 03/17/2024 [facility] [address] [facility] [address] Marylou Little MD Headache; Vomiting 03/16/2024 1:00 PM CDT Ancillary Procedure [facility] [[email or web address]] [address] [place] [address] 03/16/2024 Travel from Last 3 Months Immunizations Name Administration Dates Next Due COVID-19 vaccine (Moderna 100mcg/0.5mL) PF, MDV 11/29/2020,11/01/2020 DTaP 02/21/2002, 8,06/07/1997,04/07,02/03/1997 Hepatitis B, Unspecified 03/30/1998,04/07/1997,0 02/03/1997 Hib Conjugate, Unspecified 03/30/1998,,04/07/1997,02/03 MMR 02/21/2002,03/30/1998 Polio Virus, Unspecified 02/21/2002,09/1996,04/07/1997,02/03 RSV, Bivalent Vaccine Recons tituted (Abrysvo 120MCG/0.5mL) 04/20/2024 Tdap 03/23/2024,06/14/2019,02/26/2009 Varicella Vaccine 02/26/2009 Family History Medical History [...] Date Smoking Tobacco: Every Day Cigarettes 0.3 8.7 Started: 09/23/2022; Last attempted to quit: 12/18/2021 Smokeless Tobacco: Never Tobacco Cessation:Ready to Q uit: No; Counseling Given: Yes Comments:2-3 per day Alcohol Use Standard Drinks/Week Comments Not Currently 0 (1 standard drink = 0.6 oz pur e alcohol) PHQ-2 Answer Date Recorded PHQ-2 TOTAL SCORE 0 05/24/2024 Social Connections Answer Date Recorded Do you often feel lonely or isolated from those around you? 0 10/11/2023 Financial Resource Strain Answer Date R ecorded Difficulty of Paying Living Expenses 3 10/12/2023 Difficulty of Paying Living Expenses Not on file 10/12/2023 Food Insecurity Answer Date Recorded Do you worry your food will run out before you are able to buy more? 1 10/11/2023 Transportation Needs Answer Date Record ed Does lack of transportation keep you from medica l appointments? 1 10/11/2023 Does lack of transportation keep you from work, meetings or getting things that you need? 1 10/11/2023 Housing Stability Answer Date Recorded What is your housing situation today? 1 10/11/2023 Estimated Date of Delivery Comme nts Yes [...] Estimated Date of Delivery 10/14/2023 - Present (06/08/2024) 1 06/08/2024 (based on Alternate EJ Entry) Dating Summary Based On EJ GA Diff Last Menstrual Period on 09/02/2023 (Approximate ) 06/08/2024 Same Alternate EJ Entry 06/08/2024 Working Comment:Date entered prior t o episode creation Vitals Pregravid Weight Height TWG (As of 06/08/2024) Pregrav id BMI 91.2 kg (201 lb) 28 kg (61 lb 12.8 oz) Date GA Fund Present FHR Mvmt BP Weight Edema Alb Glu Ket Dil/ Eff/Sta 4 19w5d Inpatient data not displayed here. See encounter summary. Notes Progress Notes - OB Encounte r - 06/01/2024 - GA:39w0d 06/01/2024 - 39w0d - Marylou Little MD S: Patient here today for routine visit. Doing well, no concerns, taking PNV's and aspirin. Abscess drained more. Had some pain but improved with drainage. Now noting a red irritating rash on right perineal area. Says it is harder to keep things dry. Problems Anxiety - on buspirone, hydroxyzine at night Cannabis use in H/o HSV, not on suppression medication H/o mild asthma, no current use of medication FOB and FOB's brother with mild cleft lip at , genetic consult at 19w5d, no abnormalities on anatomy US No nausea. Good movement. No vaginal bleeding/discharge, loss of fluid, contractions, dysuria or other urinary symptoms. No headache, vision changes, RUQ or epigastric pain, facial or extremity edema. O: See flowsheet. Skin: small 0.3 cm nodule/cyst in left perineum, no drainage from prior I&D site, now with skin erythema in bilateral vulva. A/P: 28 y.o. at 39w0d, doing well. 1. Encounter for supervision of normal first in third trimester 2. Yeast infection of the skin - clotrimazole (LOTRIMIN) 1 % cream; Apply topically to affected area(s) two times daily to vulvar tissue. 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 - contraception, desires return to Nuva Ring - Return in 1wks for OB FU Marylou Little MD .................... 06/01/2024 2:56 PM BEHAVIORAL HEALTH Progress Notes - OB Encounte r - 05/27/2024 - GA:38w2d 05/27/2024 - 38w2d - Marylou Little MD S: Patient here [...] on anatomy US No nausea. Good movement. No vaginal bleeding/discharge, loss of fluid, contractions, dysuria or other urinary symptoms. No headache, vision changes, RUQ or epigastric pain, facial or extremity edema. O: See flowsheet. A/P: 28 y.o. at 38w2d, doing well. 1. 38 weeks gestation of 2. 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 - contraception, desires return to [facility]va [facility] - Return in 1wks for OB FU Marylou Little MD .................... 05/27/2024 2:12 PM BEHAVIORAL HEALTH Progress Notes - OB Encounte r - 05/18/2024 - GA:37w0d 05/18/2024 - 37w0d - Marylou Little MD S: Patient here today for routine visit. Doing well, having some colostrom leakage, taking PNV's and aspirin. Problems Anxiety - on buspirone, hydroxyzine at night Cannabis use in H/o HSV, not on suppression medication H/o mild asthma, no current use of medication FOB and FOB's brother with mild cleft lip at , genetic consult at 19w5d, no abnormalities on anatomy US No nausea. Good movement. Having some contractions. No vaginal bleeding/discharge, loss of fluid, dysuria or other urinary symptoms. No headache, vision changes, RUQ or epigastric pain, facial or extremity edema. O: See flowsheet. A/P: 28 y.o. at 37w0d, doing well. 1. Encounter for supervision of normal first in third trimester - GBS screen today - Pre-eclampsia risk: moderate (nulliparity, obesity), on ASA - H/o genital HSV, recommend valacyclovir 500mg BID as suppressive therapy started at 36 weeks gestation - Anxiety - continue buspirone and hydroxyzine, follows with psych - Baby is STEPHEN, discussed movements, provided information from [employer]. - Reviewed labor precautions. Discussed again preparation for labor pain with non-pharmacologic methods especially with her anxiety. - contraception, desires return to Nuva [facility] - Return in 2wks for OB FU. Marylou Little MD .................... 05/18/2024 3:31 PM BEHAVIORAL HEALTH Progress Notes - OB Encounte r - 05/04/2024 - GA:35w0d 05/04/2024 - 35w0d - Lexus Mkceon MD Images from the original note were not included. 28 y.o. at 35w0d here for routine OB care. No vb, LOF, pelvic/vaginal pain or pressure. Endorses BH contractions. Having right inguinal pain that improves with stretching. +FM. Wrist pain improved with the brace but then she stopped wearing it and the pain is coming back. PNV: yes ASA: yes (nulliparity, BMI) contraception discussed today: yes, plans to go back on Nuva Ring while she determines future fertility goals/desires Elevated BMI H/O Mild Cleft Lip in FOB & FOB's brother - Had normal level 2 U/S with MFM - S/P genetic consult at 19w5d Anxiety - Buspirone & hydroxyzine - Has therapist, considering hypnotherapy for delivery Cannabis use in -Noted, discussed at prior visits H/O HSV - Rx sent for HSV prophylaxis - Start prophylaxis at 36w H/O Asthma -Not currently using inhaler Round Ligament Pain - Continue stretching - Advised use of maternity support band Counseled on signs/sx PTL plan discussed Questions answered RTC as previously scheduled in 2 weeks for GILBERTO Patient discussed with Dr. Delmer Mckeon MD 05/04/2024 3:36 PM PGY-2 [facility] I was present with during the visit. I have examined the patient and agree with the findings and plan of care as documented or have made adjustments as appropriate. Marylou Little MD 05/04/2024 4:30 PM Progress Notes - OB Encounte r - 04/20/2024 - GA:33w0d 04/20/2024 - 33w0d - Marylou Little MD S: Patient here today for routine visit. Doing well, taking PNV's and aspirin. Wrist feels swollen and hurting, left. Problems Anxiety - on buspirone, hydroxyzine at night Cannabis use in H/o HSV, not on suppression medication H/o mild asthma, no current use of medication FOB and FOB's brother with mild cleft lip at , genetic consult at 19w5d, no abnormalities on anatomy US No nausea. Good movement. No vaginal bleeding/discharge, loss of fluid, contractions, dysuria or other urinary symptoms. No headache, vision changes, RUQ or epigastric pain. Upper and lower extremity edema. O: See flowsheet. A/P: 28 y.o. at 33w0d, doing well. 1. Encounter for supervision of normal first in second trimester 2. Need for RSV vaccination 3. DeQuervain tenosynovitis, left - RSV ABRYSVO 120MCG/0.5ML BIVALENT - Discussed RSV vaccine, will get today. - Left DeQuervain tenosynovitis. Thumb spica splint at night and with painful activities. - Pre-eclampsia risk: moderate (nulliparity, obesity), on ASA - H/o genital HSV, recommend acyclovir 400 mg three times daily as suppressive therapy at 36 weeks gestation - Anxiety - continue buspirone and hydroxyzine, follows with psych - Reviewed labor precautions. Discussed again preparation for labor pain with non-pharmacologic methods especially with her anxiety. - Return in 2wks for OB FU. Marylou Little MD .................... 04/20/2024 2:37 PM Progress Notes - OB Encounte r - 04/11/2024 - GA:31w5d 04/11/2024 - w - Marylou Little MD S: Patient here today for routine visit. Doing well, no concerns, taking PNV's and aspirin. Breast lump palpated about 1-2 weeks ago, this has since gone. She is having colostrum and leakage. Problems Anxiety - on buspirone, hydroxyzine at night Cannabis use in H/o HSV, not on suppression medication H/o mild asthma, no current use of medication FOB and FOB's brother with mild cleft lip at , genetic consult at 19w5d, no abnormalities on anatomy US No nausea. Good movement. No vaginal bleeding/discharge, loss of fluid, contractions, dysuria or other urinary symptoms. No headache, vision changes, RUQ or epigastric pain, facial or extremity edema. O: See flowsheet. A/P: 28 y.o. at 31w5d, doing well. 1. Encounter for supervision of normal first in second trimester 2. Anxiety - Discussed RSV vaccine and she get at next visit - Pre-eclampsia risk: moderate (nulliparity, obesity), on ASA - H/o genital HSV, recommend acyclovir 400 mg three times daily as suppressive therapy at 36 weeks gestation - Anxiety - continue buspirone and hydroxyzine, follows with psych - Reviewed labor precautions. Discussed again preparation for labor pain with non-pharmacologic methods especially with her anxiety. - Return in 2wks for OB FU. Marylou Little MD .................... 04/11/2024 2:48 PM Progress Notes - OB Encounte r - 03/23/2024 - GA:29w0d 03/23/2024 - 29w0d - Marylou Little MD S: Patient here today for routine visit. Doing well, no concerns, taking PNV's and aspirin. She was seen at [place] for severe headache, all labs/testing normal, not concerning for preeclampsia. Problems Anxiety - on buspirone, hydroxyzine at night Cannabis use in H/o HSV, not on suppression medication H/o mild asthma, no current use of medication FOB and FOB's brother with mild cleft lip at , genetic consult at 19w5d, no abnormalities on anatomy US No nausea. Good movement. Swelling is about the same. Some vaginal leakage, feels more damp than normal, only happened a few times. No vaginal bleeding/discharge, contractions, dysuria or other urinary symptoms. O: See flowsheet. A/P: 28 y.o. at 26w0d, doing well. 1. Encounter for supervision of normal first in second trimester - Tdap today, discussed RSV vaccine and she will consider. - Pre-eclampsia risk: moderate (nulliparity, obesity), on ASA - H/o genital HSV, recommend acyclovir 400 mg three times daily as suppressive therapy at 36 weeks gestation - Anxiety - continue buspirone and hydroxyzine, follows with psych - Reviewed labor precautions. Discussed again preparation for labor pain with non-pharmacologic methods especially with her anxiety. - Return in 2wks for OB FU. Marylou Little MD .................... 02/03/2024 4:37 PM Progress Notes - OB Encounte r - 03/02/2024 - GA:26w0d 03/02/2024 - w0d - Marylou Little MD S: Patient here [...] history of cleft palate in FOB per [facility] recs - US OB FOLLOW UP ANY TRI SINGLE TA; Future - Reviewed labor precautions. - Return in 4wks for OB FU. Marylou Little MD .................... 02/03/2024 4:37 PM Progress Notes - OB Encounte r - 02/03/2024 - GA:22w0d 02/03/2024 - - Marylou Little MD S: Patient here [...] counter - 01/18/2024 - GA:19w5d 01/18/2024 - - Geraldine Moreira i, MS, CGC / Clinic Note Genetic Counseling RE: Geraldine Henley : 1995 MR: [id number] Partner name: Blayne - present for today's visit; Geraldine's mother, Rayne also present Referred By: Marylou Little MD [address] [place] [address] Indication for Visit: Family history of cleft [...] family history of clefting, although knowledge about Blayne's biological father is limited. Blayne's father and brother both have autism. Blayne suspects he may be on the autism spectrum as well. All are high functioning. Family history was otherwise unremarkable for defects, intellectual disability, developmental delays, recurrent miscarriages, sudden unexpected deaths, and known genetic conditions that would increased the risk to the . Patient ethnicity: White (Burmese and South Sudanese) Partner ethnicity: White (Burmese and [place]ese) Consanguinity: none noted Risk Assessment: Discussed the [...] proceed with the level II ultrasound after today s consult. Please see the corresponding report from Dr. Alvares for final impressions and recommendations. Thank you for allowing us to participate in your patient's care. Please do not hesitate to contact me with any additional questions or concerns. Sincerely, Geraldine Sevilla MS, [facility] Licensed Genetic Counselor Total time: 23 minutes in person Total time preparing to see this patient, [id number] time, and coordinating care time on the same calendar date: 27 minutes. [facility] [place] [address], [address] [place] [address] 01/18/2024 - 19w5d - Dixie Alvares MD [...] done with primary- please refer back to [facility] if preferred) COMMENT: Present findings are [...] needed. Services Provided: Procedures Code DETAIL ANATOMY 96087.0 Progress Notes - OB Encounte r - [...] non-pharmacologic methods, birthing classes and connecting with child welfare specialist services. O: See flowsheet. A/P: 28 y.o. [...] r - 12/11/2023 - GA:14w2d 12/11/2023 - w2d - Marylou Little MD S: 28 y.o. [...] at . 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 - Encouraged patient to call clinic at [phone] with any vaginal bleeding, fluid leaking from [...] 10/22/2023 7:00 AM Talia Montelongo NP NFLDPS NF 12/09/2023 1:30 PM ANW TREADMILL RM 7 ANWHCD ANW 01/01/2024 10:35 AM Mina Doss, NFLDFP NF Ana Collier RN .................... 10/14/2023 3:28 PM Last Filed Vital Signs Vital Sign Reading Time Taken Comments Blood Pressure 132/78 06/08/2024 3:02 PM RN BEHAVIORAL HEALTH Pulse 95 06/08/2024 2:42 PM RN BEHAVIORAL HEALTH Temperature 36.9 C (98.5 F) 10/19/2023 9:54 AM CDT Respiratory Rate 14 05/14/2022 12:0 6 PM RN BEHAVIORAL HEALTH Oxygen Saturation 99% 06/08/2024 2:42 PM RN BEHAVIORAL HEALTH Inhaled Oxygen Concentration - - Weight 119.2 kg (262 lb 12.8 oz) 06/08/2024 2:42 PM RN BEHAVIORAL HEALTH Height 170.7 cm (5' 7.21) 10/19/2023 9:54 AM CD T Body Mass Index 40.91 10/19/2023 9:54 AM CDT Plan of Treatment Upcoming Encounters Date Type Department Care Team (Late st Contact Info) Description 06/15/2024 2:15 PM RN BEHAVIORAL HEALTH OB Encounter [facility] [[email or web address]] [address] [place] [address] Mayrlou Little MD [address] [place] [address] 06/27/2024 3:00 PM RN BEHAVIORAL HEALTH Telemedicine [facility] [[email or web address]] [address] [place] [address] Talia Montelongo NP [address] [place] [address] Health Maintenance Due Date Last Done Comments Pneumococcal series for age 6-64 (1 of 2 - PCV) 2002 Pap test for age 21-65 05/25/2020 05/25/2017 COVID-19 vaccine series ( - season) 2024 11/29/2020, 11/01/2020 Influenza for age 9-49 03/06/2024 BMI (ht and wt on same day) for age 18+ 10/18/2024 10/19/2023, 10/14/2023, 05/27/2022, Additional history exists Depression screening for age 12+ 05/27/2025 05/27/2024, 05/24/2024, 05/24/2024, Additional history exists Tetanus booster 03/23/2034 03/23/2024, 06/05, 02/26/2009 HIV for age 15-65 Completed 10/14/2023 Hepatitis C screening for ag e 18-79 Completed 10/14/2023 Tdap Completed 03/23/2024, 06/05, 02/26/2009 RSV vaccine for adults or Completed 04/20/2024 Procedures Procedure Name Priority Date/Time Associated Diagnosis Comments VAGINAL/RECTAL OB STREP PCR Routine 05/18/2024 4:00 PM RN BEHAVIORAL HEALTH Encounter for supervision of normal first in third trimester SCAN-LABORATORY REPORT 03/17/2024 12:00 AM CDT US OB FOLLOW UP ANY TRI SINGLE TA Routine 03/16/2024 1:12 PM CDT Encounter for supervision of normal first in second trimester ANTI HIV 1/2 Routine 10/14/2023 4:20 PM CDT confirmed by positive urine test ANTI HCV Routine 10/14/2023 4:20 PM CDT confirmed by positive urine test 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 Other (Vaginal/Rectal) Non-Blood / Unknown 05/18/2024 4:00 PM RN BEHAVIORAL HEALTH 05/18/2024 4:14 PM RN BEHAVIORAL HEALTH Marylou Little MD MICROBIOLO GY [facility] [address] [place] [address], [place] * SCAN-LABORATORY REPORT (03/17/2024 12:00 AM CDT) Scanner OTHER * US OB FOLLOW UP ANY TRI [...] Narrative 03/16/2024 2:48 PM CDT For Patients: As a result of the Cures Act, medical imaging exams and procedure reports are released immediately into your electronic medical record. You may view this report before your referring provider. If you have questions, please contact your health care provider. INDICATION: Third trimester scan, evaluate growth. COMPARISON: 01/18/2024 TECHNIQUE: Real time eckert scale imaging of the fetus was performed. FINDINGS: Sonographic imaging demonstrates a single living intrauterine gestation. Fetus demonstrates a regular cardiac rate of 127 beats per minute. Fetus has a vertex position. The placenta lies anteriorly without evidence of placenta previa. Amniotic fluid volume appears normal and there is a single deepest vertical pocket: 6.7 cm. The estimated weight is 1144gm which lies at the 33rd %. On the prior OB ultrasound exam dated 01/18/2024 the estimated weight was at the 55th%. The biometric indices all lie within normal range. The HC/AC ratio measures 1.10 range (1.05-1.22). Procedure Note Juma Mcnally MD - 03/16/2024 For Patients: As a result of the Century Cures Act, medical imagingexams and procedure [...] vertical pocket: 6.7 cm. The estimated weight [id number] which lies at the 33rd %. On [...] 2:48:47 PM (Electronically Signed) Marylou Little MD * ANTI HCV (10/14/2023 4:20 PM CDT) HEPATITIS C ANTIBODY Non-Reacti ve Non-React claire 10/15/2023 2:26 PM CDT [facility] Comment:Please note, per www .CDC.gov: [...] PM CDT Marylou Little MD S[facility]S [facility] [address] [place] [address], * ANTI HIV 1/2 (10/14/2023 4:20 PM CDT) HIV-1/HIV-2 SCREEN Non-Reacti ve Non-Reacti ve 10/15/2023 2:24 PM CDT [facility] TRAL LABORAT[facility] Comment:HIV-1 p24 and HIV-1/ HIV-2 Ab Not Detected. Blood BLOOD SPECIMEN / Unknown Venipuncture / Unknown 10/14/2023 4:20 PM CDT 10/14/2023 4:22 PM CDT Marylou Little MD SEND OUTS Performing Organization Address City/[facility]/ZIP Co de Phone Number [facility] 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 THIN PREP PAP SCREEN IMAGED (05/25/2017 4:49 PM RN BEHAVIORAL HEALTH) Case Report Gynecologic Cytology Report Case: [id number] Authorizing Provider: Aureliano Seymour MD Collected: 05/25/20179 Ordering Location: [facility] Received: 05/25/2017 1649 Clinic First Screen: Veronica Ventura Specimen: FREIGHT DELIVERY DRIVER ThinPrep Vial Screening, Cervical 06/05/2017 2:32 PM RN BEHAVIORAL HEALTH [facility] [employer] ENTRAL LABORATORY INTERPRETATION/ RESULT NEGATIVE FOR INTRAEPITHELIAL LESION OR MALIGNANCY (NIL) (none) 06/05/2017 2:32 PM RN BEHAVIORAL HEALTH [facility] [employer] ENTRAL LABORATORY IMEN ADEQUACY Satisfactory for evaluation Endocervical component present 06/05/2017 2:32 PM RN BEHAVIORAL HEALTH [facility] ENTRAL LABORATORY HPV REQUEST HPV if ASCUS 06/05/2017 2:32 PM RN BEHAVIORAL HEALTH [facility] [employer] ENTRAL LABORATORY Date of LMP 05/25/2017 06/05/2017 2:32 PM RN BEHAVIORAL HEALTH [facility] [employer] ENTRAL LABORATORY Last Pap Date first pap 06/05/2017 2:32 PM RN BEHAVIORAL HEALTH [facility] [employer] LABORATORY- ENTRAL LABORATORY Last Pap Result First Pap/Unknown 2:32 PM RN BEHAVIORAL HEALTH [facility]- ENTRAL LABORATORY Abnormal Pap or Manly Bx in last 5 years No 06/05/2017 2:32 PM RN BEHAVIORAL HEALTH [facility] [employer] [facility] ENTRAL LABORATORY Menstrual Status Regular Periods 06/05/2017 2:32 PM RN BEHAVIORAL HEALTH [facility] [employer] [facility]- ENTRAL LABORATORY Manly Bx Done Today No 06/05/2017 2:32 PM RN BEHAVIORAL HEALTH [facility] ENTRAL LABORATORY Additional Information None given 06/05/2017 2:32 PM RN BEHAVIORAL HEALTH [facility] [employer] LABORATORY- ENTRAL LABORATORY Automated Review Successful 06/05/2017 2:32 PM RN BEHAVIORAL HEALTH [facility] ENTRID LABORATORY Comment:Specimen processed s uccessfully by automated bellman driver device, [employer] Imaging System, [employer] Note The pap test is a screening technique, not a diagnostic procedure. It is used primarily to screen for squamous cancers and precursor lesions. Published studies have shown that it is subject to both false negative and false positive results. The pap test should not be used as the sole means to diagnose or exclude pre-malignant and malignant lesions. Interpreted at [facility] (Central Lab, [facility], [facility], [facility], [facility], [facility], [facility]) 06/05/2017 2:32 PM RN BEHAVIORAL HEALTH [facility] [employer] [facility] ENTRID LABORATORY Other (Cervical) 05/25/2017 4:49 PM RN BEHAVIORAL HEALTH 05/25/2017 4:49 PM RN BEHAVIORAL HEALTH Aureliano Seymour MD PATHOLOGY/CYTOLO GY [facility]TRAL LAB[facility]ORY 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
[2024-06-08 17:09] LABS: Mean Corpuscular HGB Conc 33 gm/dL (32-36); Mean Corpuscular Hemoglobin 32 pg (26-34); Mean Corpuscular Volume 96 fL (80-100); Platelet Count* 196 K/uL (140-440); Red Blood Count 3.43 m/uL (4.00-5.20); White Blood Count* 9.99 K/uL (4.50-11.00)
[2024-06-08 17:20] LABS: Slide Review Reflex No
[2024-06-08 17:38] LABS: Total Protein Urine 9 mg/dL
[2024-06-08 17:40] LABS: Creatinine Urine 103.4 mg/dL; Protein Creatinine Ratio Urine 0.09 (0-0.19)
[2024-06-08 17:41] LABS: Alanine Aminotransferase* 11 U/L (4-35); Aspartate Amino Transferase* 19 U/L (12-35); Blood Urea Nitrogen* 8 mg/dL (5-24); Creatinine* 0.6 mg/dL (0.5-1.5); Estimated Glomerular Filt Rate 126 ml/min
[2024-06-08 19:08] LABS: Uric Acid* 4.1 mg/dL (2.2-8.4)
--- NOTE | 2024-06-08 20:02 | PC.OBNST ---
NST Note NST Note Start: 06/08/24 16:16 Freq: ONCE Status: Active Protocol: Document 06/08/24 16:16 [facility] (Rec: 06/08/24 20:02 [facility] Desktop) NST Note 3 Para (# of births) 0 EDC 06/08/24 Gestational Age In Weeks & Days 40 Weeks & 0 Days Patient Presented with Complaint(s) of Contractions/cramping,Other Other Complaints R/O pre eclampsia labs Reactive Yes Appropriate for Gestational Age Yes REGLA Munson RN Date 06/08/24 Reactive Yes Appropriate for Gestational Age Yes REGLA Mina RN Date 06/08/24 OB NST charge Yes Complete NST Note via Write Note Yes The provider's electronic signature indicates the NST is reactive/appropriate for gestational age. *Note to provider: If an addendum is required, open the patient's chart and click on the note under the Nurse/Allied Health tab.
--- NOTE | 2024-07-21 15:49 | PC.OBNST ---
NST Note NST Note Start: 06/08/24 16:16 Freq: ONCE Status: Discharge Protocol: Document 06/08/24 16:16 [facility] (Rec: 06/08/24 20:02 [facility] Desktop) NST Note 3 Para (# of births) 0 EDC 06/08/24 Gestational Age In Weeks & Days 40 Weeks & 0 Days Patient Presented with Complaint(s) of Contractions/cramping,Other Other Complaints R/O pre eclampsia labs Reactive Yes Appropriate for Gestational Age Yes REGLA Munson RN Date 06/08/24 Reactive Yes Appropriate for Gestational Age Yes RGELA Mina RN Date 06/08/24 OB NST charge Yes Complete NST Note via Write Note Yes The provider's electronic signature indicates the NST is reactive/appropriate for gestational age. *Note to provider: If an addendum is required, open the patient's chart and click on the note under the Nurse/Allied Health tab.
--- NOTE | 2024-07-21 15:50 | PC.OBNST ---
NST Note NST Note Start: 06/08/24 16:16 Freq: ONCE Status: Discharge Protocol: Document 06/08/24 16:16 [facility] (Rec: 06/08/24 20:02 [facility] Desktop) NST Note 3 Para (# of births) 0 EDC 06/08/24 Gestational Age In Weeks & Days 40 Weeks & 0 Days Patient Presented with Complaint(s) of Contractions/cramping,Other Other Complaints R/O pre eclampsia labs Reactive Yes Appropriate for Gestational Age Yes REGLA Munson RN Date 06/08/24 Reactive Yes Appropriate for Gestational Age Yes REGLA Mina RN Date 06/08/24 OB NST charge Yes Complete NST Note via Write Note Yes The provider's electronic signature indicates the NST is reactive/appropriate for gestational age. *Note to provider: If an addendum is required, open the patient's chart and click on the note under the Nurse/Allied Health tab.
== END 2024-06-08 19:50 | disposition home or self-care (01) ==
LOC: OB OUT 16:06 → OB 16:07
PROVIDERS: PCP Student in an Organized Health Care Education/Training Program; Visit Provider Family Medicine
DX: O47.1 False labor at or after 37 completed weeks of gestation (principal); Z3A.40 40 weeks gestation of pregnancy
CPT/HCPCS: 36415; 59025; 82565; 82570; 84156; 84450; 84460; 84520; 84550; 85027; G0463

== ENCOUNTER 2024-06-14 17:37 | Inpatient (IN) | payer BC, SELFPAY ==
[2024-06-14] VITALS (8 sets, daily range): BP systolic 86–127; BP diastolic 44–76; PULSE 82–104; RESP 18; TEMP 37–37.3; O2SAT 97; BMI 40.3
--- OUTSIDE RECORDS SUMMARY | 2024-06-14 17:42 | XMS_ITS | Clinical Summary ---
Author Organization [place] Address [address] [place] [address]. [place] [address] Care Team Providers Care Welcome Hostess Name Role Phone Clinic, [facility] Primary Care Provider Allergies Active Allergy Reactions [...] to complete this topic Insurance [place] [employer] Care Teams Welcome Hostess Relationship Specialty Start Date End Date [address] [address] PCP - General 01/27/20
--- OUTSIDE RECORDS SUMMARY | 2024-06-14 17:42 | XMS_ITS | Referral Summary ---
Author Organization [place] Address [address] [place] [address]. [place] [address] Care Team Providers Care Electric Repair Supervisor Name Role Phone Clinic, [facility] Primary Care Provider Allergies Active Allergy [...] Plan of Treatment Not on file [place] [address] [employer] INS[employer]ANCE A [employer] Coverage Care Teams Electric Repair Supervisor Relationship Specialty Start Date End Date [facility], [address] [address] PCP - General 01/27/20
--- OUTSIDE RECORDS SUMMARY | 2024-06-14 17:42 | XMS_ITS | Clinical Summary ---
Author Organization [facility] Address [place], [place] [address] Care Team Providers Care Welding Inspector Name Role Phone Marylou Little MD Primary Care Prov ider Allergies Active Allergy Reactions Criticality Noted Date Comments Bee Venom Protein (Honey Bee) Throat Swelling/Closing High 09/06/2021 Chocolate Flavor Nausea And Vomiting,Throat Swelling/Closing High 08/27/2018 Escitalopram Anxiety 02/11/2022 Possible hives Nickel Rash 08/27/2018 Medications EPINEPHrine (EPIPEN) 0.3 mg/0.3 mL auto-injectorIndic ations:Anaphylaxis , sequela Inject 0.3 mg intramuscular each time if needed for Allergic Reaction. 2 Each 09/01/19 24 Active cholecalciferol, Vitamin D3, (Vitamin D-3) 5,000 unit tab tabletIndications: Vitamin D deficiency Take 1 Tablet (5,000 units) by mouth once daily. 90 Tablet 3 09/03/19 24 Active ondansetron (ZOFRAN ODT) 4 mg disintegrating tabletIndications: Migraine syndrome Place 1 Tablet (4 mg) on the tongue every 8 hours if needed for Nausea/Vomiting. 30 Tablet 10/01/19 24 Active famotidine (PEPCID) 40 mg tabletIndications: Nausea Take 1 Tablet (40 mg) by mouth once daily. 90 Tablet 3 10/01/19 24 Active medication order composer Vitamin d3 2000 unit capsules 10/12/19 24 Active vitamin chewable (NATACHEW) 29 mg iron- 1 mg chew Chew 1 Tablet by mouth once daily. Active prochlorperazine (COMPAZINE) 5 mg tabletIndications: Nausea and vomiting of , antepartum Take 1-2 Tablets (5-10 mg) by mouth every 6 hours if needed for Nausea/Vomiting. 30 Tablet 10/16/19 24 Active aspirin chewable 81 mg chewable tabletIndications: 10 weeks gestation of Chew 1 Tablet (81 mg) by mouth once daily with a meal. 90 Tablet 2 11/25/19 24 Active hydrOXYzine HCL (ATARAX) 25 mg tabletIndications: Generalized anxiety disorder TAKE 1 TABLET(25 MG) BY MOUTH EVERY 8 HOURS NEEDED FOR ANXIETY 30 Tablet 11/18/19 24 Active busPIRone (BUSPAR) 10 mg tabletIndications: Generalized anxiety disorder Take 1 Tablet (10 mg) by mouth two times daily. 180 Tablet 3 03/23/20 24 Active valACYclovir (VALTREX) 500 mg tabletIndications: Genital herpes simplex, unspecified site Take 1 Tablet (500 mg) by mouth two times daily. Start at 36 weeks gestation (05/11/2024) to prevent active HSV lesions at time of delivery. 60 Tablet 2 05/11/20 24 Active clotrimazole (LOTRIMIN) 1 % creamIndications:Y east infection of the skin Apply topically to affected area(s) two times daily. 45 g 06/01/20 24 Active Active Problems Problem Noted Date Diagnosed Date [facility], Supervision of high-risk 01/12/20 24 Overview (01/14/2024): Farshad Rachid Henley : 1995 REFERRING PROVIDER: Marylou Little MD, [facility], Primary provider approves scheduling of recommended ultrasounds/testing: Yes [facility] ULTRASOUND/TESTING PATIENT Support person name: Blayne ULTRASOUND [...] TO PATIENT CARE TEAM GENETICS: Declines/Not Done [facility] 01/18/24 CARE COORDINATION: PERTINENT LABS: Labs reviewed? [...] Encounters Date Type Department Care Team Description 06/13/2024 10:40 AM RECORD PRODUCER OB Encounter [facility] [address] [place] [address] Marylou Little MD Care (40 weeks 5 days) 06/13/2024 Travel 06/09/2024 Telephone [facility] [address] [place] [address] Marylou Little MD scheduling (Induction) 06/08/2024 2:40 PM RECORD PRODUCER OB Encounter [facility] [address] [place] [address] Marylou Little MD Care (40 weeks/Painfully swollen feet/Right arm keeps falling asleep/More contractions - not able to time. ) 06/08/2024 Orders Only [facility] Scanner 1 scan: (1-Ord) [facility], MULTIPLE LAB RESULTS, 06/08/2024 06/08/2024 Travel 06/01/2024 2:40 PM RECORD PRODUCER OB Encounter [facility] [address] [place] [address] Marylou Little MD Care (39 weeks 0 days); Abscess (cyst in the groin returned, popped on its own. Now has a rash in the same area. Believes urine leaking today at work. ) 06/01/2024 Travel 05/27/2024 1:50 PM RECORD PRODUCER OB Encounter [facility] [address] [place] [address] Marylou Little MD Care (38 weeks 2 days); Follow Up (cyst - improving ) 05/27/2024 Travel 05/24/2024 2:40 PM RECORD PRODUCER Office Visit [facility] [address] [place] [address] Marylou Little MD Lump (Painful lump in perineum area . Started about 1 week ago. over the last 24 hours worsened) 05/24/2024 2:00 PM RECORD PRODUCER Telemedicine [facility] [address] [place] [address] Talia Montelongo NP Telehealth; Medication Management (Things are going okay/Having physical pain that are getting bad, see pcp today also) 05/24/2024 Travel 05/18/2024 3:30 PM RECORD PRODUCER OB Encounter [facility] [address] [place] [address] Marylou Little MD Care (37 weeks ) 05/18/2024 Travel 05/04/2024 3:30 PM CDT OB Encounter [facility] [address] [place] [address] Marylou Little MD Care (35 weeks 0 days); Dizziness (1 dizzy spell today. thinks it may be from not eating. resolved after snacking) 05/04/2024 Travel 04/20/2024 3:30 PM CDT OB Encounter [facility] [address] [place] [address] Marylou Little MD Care (33 weeks /Stomach will get hard for a couple minutes and go away. ) 04/20/2024 Travel 04/11/2024 2:40 PM CDT OB Encounter [facility] [address] [place] [address] Marylou Little MD Care (31 weeks 5 days /heartburn/back pain/tired); Lump (Lump on left breast. Unable to find it today) 04/11/2024 Travel 03/23/2024 3:30 PM CDT OB Encounter [facility] [address] [place] [address] Marylou Little MD Care (29 weeks) 03/23/2024 Travel 03/22/2024 Refill [facility] [address] [place] [address] Talia Montelongo NP Refill Request (Buspirone) 03/17/2024 Orders Only [facility] Scanner 1 scan: (1-Ord) [facility], MULTIPLE LABS, 03/17/2024 03/17/2024 Nurse Triage [facility] [address] [place] [address] Marylou Little MD Headache; Vomiting 03/16/2024 1:00 PM CDT Ancillary Procedure [facility] [address] [place] [address] 03/16/2024 Travel from Last 3 Months Immunizations [...] Date Smoking Tobacco: Every Day Cigarettes 0.3 8.8 Started: 09/23/2022; Last attempted to quit: 12/18/2021 [...] at Not on file Legal Sex Female 12:02 PM CDT Gender Identity Not on file Sexual Orientation Not on file Obstetrics History Para Term AB IAB SAB Ectopic Multiple Livin g Live Births 3 2 2 Date Outcome GA Total Labor Labor/2nd/3rd Weight Sex Type Anes PTL Maria Ines A1 A5 Name Clin 2018 IAB 01/2023 IAB Current Summary Episode Dates Number of Fetuses Estimated Date of Delivery 10/14/2023 - Present (06/14/2024) 1 06/08/2024 (based on Alternate EJ Entry) Dating Summary Based On EJ GA Diff Last Menstrual Period on 09/02/2023 (Approximate ) 06/08/2024 Same Alternate EJ Entry 06/08/2024 Working Comment:Date entered prior t o episode creation Vitals Pregravid Weight Height TWG (As of 06/14/2024) Pregrav id BMI 91.2 kg (201 lb) 27.7 kg (61 lb) Date GA Fund Present FHR Mvmt BP Weight Edema Alb Glu Ket Dil/ Eff/Sta 4 19w5d Inpatient data not displayed here. See encounter summary. Notes Progress Notes - OB Encounte r - 06/13/2024 - GA:40w5d 06/13/2024 - 40w5d - Marylou Little MD S: Patient here today for routine visit. Seen in Center last week for pre-E rule out, all testing and Bps were normal. Contractions, feeling them more so in the back. Problems Anxiety - on buspirone, hydroxyzine at night Cannabis use in H/o HSV, on suppression medication as of 36 weeks H/o mild asthma, no current use of medication FOB and FOB's brother with mild cleft lip at , genetic consult at 19w5d, no abnormalities on anatomy US GBS positive. Antibiotics at time of delivery O: See flowsheet. A/P: 28 y.o. at 40w5d, doing well, ready to not be . Induction planned for 06/14 at 1600. Hansen 5 (1/50/-2/soft/posterior). Discussed options for cytotec vs balloon. Given significantly posterior cervix, I'd recommend starting with vaginal cytotec. Patient is very concerned about induction and has severe anxiety. I do think if cervix is favorable (less posterior) she may benefit from balloon to allow for improved sleep and limited cervical checks. Patient has been having some back pains consistent with back labor, recommend POCUS at admission to determine position if OP and active management of OP if present overnight. I will manage starting at 7AM on 06/15. She is GBS positive, antibiotics in active labor. Ok with all pain management strategies. Partner and mother will be present for labor/delivery. Marylou Little MD .................... 06/13/2024 11:[address] PRODUCER Progress Notes - OB Encounte r - 06/08/2024 - GA:40w0d 06/08/2024 - 40w0d - Marylou Little MD S: Farshad is here at 40w0d for routine care. She has been noticing increase in edema in upper and lower extremities. She noted having pain in her right arm due to the swelling. She denies headaches or vision changes. She is ready to complete . She has had contractions. She states that every time she thinks about counting them they spaced out. Problems Anxiety - on buspirone, hydroxyzine at night Cannabis use in H/o HSV, not on suppression medication H/o mild asthma, no current use of medication FOB and FOB's brother with mild cleft lip at , genetic consult at 19w5d, no abnormalities on anatomy US O: See flowsheet. A/P: 1. Encounter for supervision of normal first in third trimester 2. Elevated blood pressure affecting in third trimester, antepartum 28 y.o. at 40w0d, presents with worsening edema and elevated blood pressure to 131/88 today. Discussed my recommendation for patient to present to weight loss center for 4-hour blood pressure monitoring and preeclampsia rule out. Patient is in agreement. I called [facility] who will be expecting patient. Discussed case with on-call provider Dr. Morfin. This will help us determine when to schedule an induction. Patient had declined elective induction awaiting 41-week induction. She is reconsidering. She will discuss with Dr. Shelbie bright if she does not get induced about coordinating a time either this weekend or next week. I am on-call on Thursday. I would recommend induction on 06/14 in PM as I am on-call on 06/15 if all labs and blood pressures remain normal in the mean time. Ok to place baby on my schedule for Thursday or Thursday if delivers before then. 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 06/08/2024 3:[address] PRODUCER Progress Notes - OB Encounte r - [...] Marylou Little MD .................... 06/01/2024 2:[address] PRODUCER Progress Notes - OB Encounte r - [...] Marylou Little MD .................... 05/27/2024 2:[address] PRODUCER Progress Notes - OB Encounte r - [...] Marylou Little MD .................... 05/18/2024 3:[address] PRODUCER Progress Notes - OB Encounte r - 05/04/2024 - GA:35w0d 05/04/2024 - 35w0d - Lexus Mckeon MD Images from the original note were [...] Delmer Mckeon MD 05/04/2024 3:36 PM PGY-2 Telephone [facility] I was present with during the [...] r - 04/11/2024 - GA:31w5d 04/11/2024 - 31w5d - Marylou Little MD S: Patient here [...] r - 03/23/2024 - GA:29w0d 03/23/2024 - w0d - Marylou Little MD S: Patient here today for routine visit. Doing well, no concerns, taking PNV's and aspirin. She was seen at [facility] for severe headache, all labs/testing normal, not [...] history of cleft palate in FOB per [facility] recs - US OB FOLLOW UP ANY TRI SINGLE TA; Future - Reviewed labor precautions. - Return in 4wks for OB FU. Marylou Little MD .................... 02/03/2024 4:37 PM Progress Notes - Hospital En counter - 01/18/2024 - GA:19w5d 01/18/2024 - 19w5d - Farshad Moreira i, , [facility] / Clinic Note Genetic Counseling RE: Farshad Henley : 1995 MR: [id number] Partner name: Blayne - present for today's visit; Farshad's mother, Rayne also present Referred By: Marylou Little MD [address] [place] [address] Indication for Visit: Family history of cleft [...] for GC Questionnaire. Patient history notable for: Farshad's brother has autism. He is high functioning [...] risk to the . Patient ethnicity: White (Ecuadorean and Kiswahili) Partner ethnicity: White (Ecuadorean and Kiswahili) Consanguinity: none noted Risk Assessment: Discussed the [...] developmental delay for any given . Discussed Farshad's age related risk for chromosomal aneuploidy, providing info about the conditions and age related risks. At Farshad's age of 28 at delivery, the combined [...] in interpreting a potential ultrasound finding. Discussion: Farshad presented today for genetic counseling regarding Blayne's [...] screening and utility for interpreting ultrasound findings. Farshad had previously been offered screening by her provider and declined. She is not interested in cell free DNA screening at this time. Farshad and Blayne verbalized understanding of the above information. They had no further questions for me at this time. Plan: Farshad elected to proceed with the level II ultrasound after today s consult. Please see the corresponding report from Dr. Alvares for final impressions and recommendations. Thank you for allowing us to participate in your patient's care. Please do not hesitate to contact me with any additional questions or concerns. Sincerely, Farshad Sevilla, MS, [facility] Licensed Genetic Counselor Total time: 23 minutes in person Total time preparing to see this patient, [id number] time, and coordinating care time on the same calendar date: 27 minutes. [facility] [address], [address] [place] [address] 01/18/2024 - 19w5d - Dixie Alvares MD [...] done with primary- please refer back to [facility] if preferred) COMMENT: Present findings are reassuring. [...] needed. Services Provided: Procedures Code DETAIL ANATOMY 29595.0 Progress Notes - OB Encounte r - 01/11/2024 - GA:18w5d 01/11/2024 - 18d - Marylou Little MD S: 28 y.o. [...] non-pharmacologic methods, birthing classes and connecting with intake rn services. O: See flowsheet. A/P: 28 y.o. [...] MD Clinic Note: First OB Visit 11/11/2023 Farshad Henley is a 27 y.o. with Estimated [...] at . SOCIAL HISTORY Marital Status: engaged, FOB Blayne MENSTRUAL HISTORY Patient's last menstrual period [...] - 6w0d - Ana Collier RN SUBJECTIVE: Farshad Henley is a 27 y.o. 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 Name of Partner or Father of baby: [...] of estimated date of delivery: No Thalassemia (Portuguese, Nepali, Mediterranean, or background): MCV less than 80: No Neural tube defect (Meningomyelocele, Spina bifida, or Anencephaly): No Congenital heart defect: No Down syndrome: No Abel-Sachs (Ashkenazi Roman Catholic, Cajun, Welsh Florence): No Jerry disease (Ashkenazi Roman Catholic): No Familial dysautonomia (Ashkenazi Roman Catholic): No Sickle cell disease or trait (): No Hemophilia or other blood disorders: No Muscular dystrophy: No Cystic fibrosis: No Trousdale's chorea: No Intellectual disability and/or autism: Yes [...] of Beginnings book and book inserts, discussed [id number] medications, and follow up. - Encouraged patient to call clinic at [phone] with any vaginal bleeding, fluid leaking from [...] 1:00 PM Edouard Waldron L Ac NFLDAC [facility] 10/22/2023 7:00 AM Talia Montelongo NP NFLDPS [facility] 12/09/2023 1:30 PM ANW TREADMILL RM 7 ANWHCD ANW 01/01/2024 10:35 AM Mina Doss DO NFLDFP NF Ana Collier RN .................... 10/14/2023 3:28 PM Last Filed Vital Signs Vital Sign Reading Time Taken Comments Blood Pressure 116/80 06/13/2024 10:40 AM RECORD PRODUCER Pulse 108 06/13/2024 10:40 AM RECORD PRODUCER Temperature 36.9 C (98.5 F) 10/19/2023 9:54 AM CDT Respiratory Rate 14 05/14/2022 12:06 PM RECORD PRODUCER Oxygen Saturation 99% 06/13/2024 10:40 AM RECORD PRODUCER Inhaled Oxygen Concentration - - Weight 118.8 kg (262 lb) 06/13/2024 10:40 AM RECORD PRODUCER Height 170.7 cm (5' 7.21) 10/19/2023 9:54 AM CD T Body Mass Index 40.79 10/19/2023 9:54 AM CDT Plan of Treatment Upcoming Encounters Date Type Department Care Team (Late st Contact Info) Description 06/20/2024 9:50 AM RECORD PRODUCER OB Encounter [facility] [address] [place] [address] Marylou Little MD [address] [place] [address] 06/27/2024 3:00 PM RECORD PRODUCER Telemedicine [facility] [address] [place] [address] Talia Montelongo, KENNY [address] [place] [address] Health Maintenance Due Date Last Done Comments Pneumococcal series for age 6-64 (1 of 2 - PCV) 2002 Pap test for age 21-65 05/25/2020 05/25/2017 COVID-19 vaccine series ( season) 2024 11/29/2020, 11/01/2020 Influenza for age [...] Procedure Name Priority Date/Time Associated Diagnosis Comments SCAN-LABORATORY REPORT 06/08/2024 12:00 AM RECORD PRODUCER VAGINAL/RECTAL OB STREP PCR Routine 05/18/2024 4:00 PM RECORD PRODUCER Encounter for supervision of normal first in third trimester SCAN-LABORATORY REPORT 03/17/2024 12:00 AM CDT US OB FOLLOW UP ANY TRI SINGLE TA Routine 03/16/2024 1:12 PM CDT Encounter for supervision of normal first in second trimester ANTI HIV 1/2 Routine 10/14/2023 4:20 PM CDT confirmed by positive urine test ANTI HCV Routine 10/14/2023 4:20 PM CDT confirmed by positive urine test MANAGER PERFORMANCE IMPROVEMENT THIN PREP PAP SCREEN IMAGED Routine 05/25/2017 4:49 PM RECORD PRODUCER Cervical cancer screening from Last 3 Months or Most Recently Relevant to Health Maintenance Results * SCAN-LABORATORY REPORT (06/08/2024 12:00 AM RECORD PRODUCER) Only the most recent of2 resultswithin the time period is included. us Scanner OTHER Final Result * (ABNORMAL) VAGINAL/RECTAL OB STREP PCR (05/18/2024 4:00 PM RECORD PRODUCER) Vaginal/Rectal OB Strep B PCR Positive( A) 05/20/2024 8:15 AM RECORD PRODUCER [facility]-CE NTRAL LABORATORY Comment:If susceptibility is needed due to penicillin allergy, contact lab. Other (Vaginal/Rectal) Non-Blood / Unknown 05/18/2024 4:00 PM RECORD PRODUCER 05/18/2024 4:14 PM RECORD PRODUCER Marylou Little MD MICROBIOLOGY Fi nal Result [facility] LAB[facility] [address] [place] [address], [place] * US OB FOLLOW UP ANY TRI [...] a result of the Cures Act, medical imagingexams and procedure reports [...] vertical pocket: 6.7 cm. The estimated weight [id number] which lies at the 33rd %. On [...] 2:48:47 PM (Electronically Signed) Marylou Little MD Fi nal Result * ANTI HCV (10/14/2023 4:20 PM CDT) Pathologist [facility] HEPATITIS C ANTIBODY Non-Reacti ve Non-React claire 10/15/2023 2:26 PM CDT [facility] Comment:Please note, per www .CDC.gov: [...] PM CDT Marylou Little MD SEND OUTS Fi nal Result [facility] SoupQubesCENTRAL LABORATORY [address] [place] [address], * ANTI HIV 1/2 (10/14/2023 4:20 PM CDT) Pathologist [facility] HIV-1/HIV-2 SCREEN Non-Reacti ve Non-Reacti ve 10/15/2023 2:24 PM CDT [facility] TRAL LABORATORY Comment:HIV-1 p24 and HIV-1/ HIV-2 Ab Not Detected. Blood BLOOD SPECIMEN / Unknown Venipuncture / Unknown 10/14/2023 4:20 PM CDT 10/14/2023 4:22 PM CDT Marylou Little MD SEND OUTS Fi nal Result [facility] LAB[facility]ATORY [address] [place] [address], [place] * MANAGER PERFORMANCE IMPROVEMENT THIN PREP PAP SCREEN IMAGED (05/25/2017 4:49 PM RECORD PRODUCER) Case Report Gynecologic Cytology Report Case: [id number] Authorizing Provider: Aureliano Seymour MD Collected: 05/25/2017 1649 Ordering Location: [facility] Received: 05/25/2017 1649 Clinic First Screen: Veronica Ventura Specimen: MANAGER PERFORMANCE IMPROVEMENT ThinPrep Vial Screening, Cervical 06/05/2017 2:32 PM RECORD PRODUCER [facility] [employer] [facility] ENTRAL LABORATORY INTERPRETATION/ RESULT NEGATIVE FOR INTRAEPITHELIAL LESION OR MALIGNANCY (NIL) (none) 06/05/2017 2:32 PM RECORD PRODUCER [facility] ENTRAL LABORATORY IMEN ADEQUACY Satisfactory for evaluation Endocervical component present 06/05/2017 2:32 PM RECORD PRODUCER [facility] ENTRAL LABORATORY HPV REQUEST HPV if ASCUS 06/05/2017 2:32 PM RECORD PRODUCER [facility] Date of LMP 05/25/2017 06/05/2017 2:32 PM RECORD PRODUCER [facility] ENTRAL LABORATORY Last Pap Date first pap 06/05/2017 2:32 PM RECORD PRODUCER [facility] ENTRAL LABORATORY Last Pap Result First Pap/Unknown 2:32 PM RECORD PRODUCER [facility] ENTRAL LABORATORY Abnormal Pap or [place] Bx in last 5 years No 06/05/2017 2:32 PM RECORD PRODUCER [facility] [employer] [facility] ENTRAL LAB[facility]ATORY Menstrual Status Regular Periods 06/05/2017 2:32 PM RECORD PRODUCER [facility] [employer] [facility] ENTRAL LABORATORY [place] Bx Done Today No 06/05/2017 2:32 PM RECORD PRODUCER [facility] LABORATORY- ENTRSD LABORATORY Additional Information None given 06/05/2017 2:32 PM RECORD PRODUCER [facility]- ENTRSD LABORATORY Automated Review Successful 06/05/2017 2:32 PM RECORD PRODUCER [facility] Comment:Specimen processed s uccessfully by automated machine design teacher device, ThinPrep Imaging System, [employer] Note The pap test is a screening technique, not a diagnostic procedure. It is used primarily to screen for squamous cancers and precursor lesions. Published studies have shown that it is subject to both false negative and false positive results. The pap test should not be used as the sole means to diagnose or exclude pre-malignant and malignant lesions. Interpreted at [facility] ([facility], [facility], [facility], [facility], [facility], [facility], [facility]) 06/05/2017 2:32 PM RECORD PRODUCER [facility] Other (Cervical) 05/25/2017 4:49 PM RECORD PRODUCER 05/25/2017 4:49 PM RECORD PRODUCER us Aureliano Seymour MD PATHOLOGY/CYTOLOGY Final Result [facility] [address] [place] [address], from Last 3 Months or Most Recently Relevant to Health Maintenance Insurance [facility] Care Teams Welding Inspector Relationship Specialty Start Date End Date Marylou Little MD [address] [place] [address] PCP - General Family Practice 10/15/23
--- NOTE | 2024-06-14 18:54 | P.OBHP_ITS ---
OB - H&P: HPI Labor/Induction History of Present Illness Date Seen: 06/14/24 Chief Complaint: The patient is a 28 year old 3 para 0 at 40.6 weeks gestation by LMP and 1st trimester ultrasound, who presents for induction of labor. 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 She started suppressive therapy with valacyclovir at 36 weeks. She is on buspar for anxiety. She has occasional vomiting that she attributes to nerves. She has felt normal movement, only occasional contractions off and on. No leaking fluid or bleeding. History of Present Dating criteria: based on LMP care: good care Ultrasounds: normal 1st trimester US and normal mid trimester US Labs Blood type: A (+) positive Rubella: immune RPR/VDLR: nonreactive GBS status: positive HBsAG: negative Review of Systems 2 Status of ROS: Reports: 10 or more systems reviewed and unremarkable except as noted in History and below Meds Home Medications and Allergies Home Medications ?Medication ?Instructions ?Recorded ?Confirmed ?Type cholecalciferol (vitamin D3) 50 50 mcg PO DAILY 10/15/23 06/14/24 History mcg (2,000 unit) capsule epinephrine 0.3 mg/0.3 mL 0.3 mg IM PRN allergies 10/15/23 06/14/24 History injection, auto-injector famotidine 40 mg tablet 40 mg PO DAILY 10/15/23 06/14/24 History aspirin 81 mg chewable tablet 1 tab PO DAILY 06/08/24 06/14/24 History buspirone 10 mg tablet 10 mg PO BID 06/08/24 06/14/24 History valacyclovir 500 mg tablet 500 mg PO BID 06/08/24 06/14/24 History Allergies Allergy/AdvReac Type Severity Reaction Status Date / Time bee venom protein (honey bee) Allergy Severe Anaphylaxis Verified 10/15/23 06:10 chocolate flavor Allergy Intermediate Throat Verified 10/15/23 06:10 Swelling escitalopram (From Lexapro) Allergy Mild Hives Verified 10/15/23 06:09 nickel Allergy Mild Hives Verified 04/11/24 06:11 lorazepam AdvReac Mild Unknown Verified 10/15/23 06:12 OB - H&P: Exam Physical Exam: Vital signs: Temp Pulse BP Pulse Ox 99.2 F 103 H 127/76 97 06/14/24 18:23 06/14/24 18:25 06/14/24 18:25 06/14/24 18:24 Constitutional: Constitutional: no acute distress Routine HEENT Exam: Eye: Absent conjunctival injection Routine Neck Exam: Neck: Present full ROM Routine Respiratory Exam: Respiratory: Present CTA bilaterally; Absent crackles or wheezes Routine Cardiovascular Exam: Cardiovascular: RRR, S1 and S2 Comments: No murmur Routine Abdominal Exam: Abdominal: Absent organomegaly Routine Exam: External: Absent erythema or vulvar erythema Perineum Description: Normal Comments: No blistering lesions noted. Detailed Labor and Delivery Exam: Patient Gravid: Yes Dilation (cm): 1 (On exam yesterday per Dr. Dowell) Effacement (%): 50 Cervix position: posterior Consistency: firm Tachysystole: No Comments: Fetus cephalic by bedside US. EFW 3500g by David. Fetus (Single): Heart Rate Baseline: 140 Monitor Accelerations: Present Monitor Decelerations: None Swahili Teacher Variability: Moderate (6-25) OB - Problem Based A/P Additional Plan (1) Term : Status: Acute Plan: Plan to start cytotec induction. Discussed risks of induction and expected progress. Will manage expectantly overnight and will transition to pitocin when cervix is favorable. (2) Anxiety: Status: Acute Plan: Continue home dose of buspar (3) Herpes: Status: Acute Plan: No HSV lesions noted. Continue valacyclovir suppression. (4) Marijuana use: Status: Acute Plan: Encourage cessation. Will get urine drug screen and meconium drug screen. (5) Positive GBS test: Status: Acute Plan: Will start antibiotics per protocol when in active labor Delivery/Labor/Induction Plan Plan: induction Induction method: per misoprostol protocol
[2024-06-14 19:21] LABS: Amphetamine Screen Urine Negative (Negative); Barbiturate Screen Urine Negative (Negative); Benzodiazepines Screen Urine Negative (Negative); Cannabinoid Screen Urine POSITIVE (Negative); Cocaine Screen Urine Negative (Negative); Methadone Screen Urine Negative (Negative); Methamphetamines Screen Urine Negative (Negative); Opiate Screen Urine Negative (Negative); Oxycodone Screen Urine Negative (Negative); Phencyclidine Screen Urine Negative (Negative); Tricyclic Antidepressant Urine Negative (Negative)
[2024-06-14] MEDS: MORPHINE 10 MG/ML inj IM (20:33)
[2024-06-14] MEDS: miSOPROStoL 25 MCG/0.25 TABLET VAGINAL ×2 (20:33→23:27)
[2024-06-14] MEDS: hydrOXYzine pamoate 25 MG CAPSULE 100 MG PO (20:34)
[2024-06-15] VITALS (26 sets, daily range): BP systolic 96–133; BP diastolic 54–85; PULSE 75–105; RESP 16–18; TEMP 36.7–37.3; O2SAT 84–99
[2024-06-15] MEDS: miSOPROStoL 25 MCG/0.25 TABLET VAGINAL (02:35)
[2024-06-15] MEDS: CALCIUM CARBONATE 500 MG CHEW PO (03:42)
[2024-06-15] MEDS: SIMETHICONE 80 MG TAB.CHEW PO (03:42)
[2024-06-15 04:00] LABS: Basophils Percent Auto 0.2 % (0.0-3.0); Eosinophils Percent Auto 1.3 % (0.0-7.0); Hematocrit 34.6 % (33.0-51.0); Hemoglobin* 11.8 gm/dL (12.0-16.0); Immature Granulocytes Pct Auto 0.5 %; Lymphocytes Percent Auto 23.5 % (20-44); Mean Corpuscular HGB Conc 34 gm/dL (32-36); Mean Corpuscular Hemoglobin 33 pg (26-34); Mean Corpuscular Volume 95 fL (80-100); Monocytes Percent Auto 9.5 % (0.0-11.0); Platelet Count* 189 K/uL (140-440); RDW Coefficient of Variation % 14.1 % (11.5-15.5); Red Blood Count 3.63 m/uL (4.00-5.20); White Blood Count* 12.93 K/uL (4.50-11.00)
[2024-06-15 04:08] LABS: Slide Review Reflex No
[2024-06-15] MEDS: LACTATED RINGERS 1000 ML 1,000 ML 1200 ML IV (04:32)
[2024-06-15] MEDS: ONDANSETRON 2 MG/ML inj 4 MG IV (04:44)
[2024-06-15] MEDS: TERBUTALINE 1 MG/ML INJ 0.25 MG SUBCUT ×2 (05:04→05:05)
--- NOTE | 2024-06-15 06:11 | PM.OBPNL ---
Subjective Time Seen by Provider: 05:00 Date Seen: 06/15/24 Narrative: She was getting very uncomfortable overnight with frequent contractions and intermittent decelerations noted. She got one dose of morphine and vistaril after her first dose of cytotec and was able to get sleep for a couple hours. She had not made significant change and intermittent contractions when she received her 2nd dose of cytotec. She was again able to sleep for a time. She got her 3rd dose of cytotec around 2:30 and shortly after her 3rd dose, starting katie much more frequently (about every minute) with FHR decelerations. Her cervix was found to be at 2 cm at this time. She was very uncomfortable at this time as well. She was given a liter of IV fluids with some improvement in her tracing and a dose of terbutaline was given due to frequent contractions and decelerations. Within 5 minutes of her terbutaline dose, contractions started to space out and tracing improved further. Objective Vital Signs: Last Vital Signs Temp 98.7 F 06/15/24 02:10 Pulse 93 06/15/24 05:19 Resp 18 06/15/24 02:10 BP 129/85 06/15/24 05:19 Pulse Ox 99 06/15/24 05:15 Pelvic Exam Dilation (cm): 2 Effacement (%): 70 Station: -3 Comments: per RN Contractions Monitor mode: External Contraction Frequency: 1-2 min Contraction pattern: Regular Contraction intensity: Strong/Firm Assessment Assessment: induction ongoing Status: Category l Heart Rate Baseline: 140 Monitor Accelerations: Present Monitor Decelerations: None Plan Plan: Tracing is now category 1 and likely was category 1 or 2 during tachysystole period after her 3rd dose of cytotec. We had a lot of difficulty keeping the baby on the monitor and this was likely the issue at that time. She has improved significantly following fluids and terbutaline. She is now resting and will plan to reassess in 1 hour to recheck cervix and determine next steps. Will avoid further cytotec due to complications from last dose. Can consider pitocin vs cook catheter for further management. Patient still plans for epidural when she is in active labor but would not recommend that at this time.
[2024-06-15] MEDS: fentaNYL 100 MCG/2 ML inj IVP (10:34)
[2024-06-15] MEDS: AMPICILLIN 2 GM in 0.9 % SODIUM CHLORIDE Mini-bag 100 ML IVPB (11:24)
[2024-06-15] MEDS: lidocaine HCL 2 % JELLY (TOP) STERILE 6 ML TOPICAL (11:27)
[2024-06-15] MEDS: OXYTOCIN 30 unit/500 ML in NS 30 UNIT/500 ML BAG 300 UNIT IVPB (11:31)
[2024-06-15] MEDS: miSOPROStoL 800 MCG/4 TABLET PR (12:25)
[2024-06-15] MEDS: ACETAMINOPHEN 500 MG TABLET 1000 MG PO ×2 (13:00→19:23)
--- NOTE | 2024-06-15 13:22 | W.PM.VAGDEL1 ---
Procedure Delivery date: 06/15/24 Procedure Done: [employer] Procedure Details: FIRST STAGE Patient is a 28 year-old who was admitted at for IOL for postdates. She was dilated to 1 cm upon admission. Labor was augmented with cytotec. ROM was spontaneous at 0904 with clear fluid. The heart rate tracing was Category 2. She became complete at Time: 1107. SECOND STAGE She pushed very effectively on hands and knees. The baby delivered Position: OA. The delivery was precipitous (4cm at 1000, delivery at 1129). A nuchal cord x1 with body cord was noted at the time of delivery. The umbilical cord was clamped after 30 seconds. The baby was placed on mother's abdomen. She did NOT receive adequate antibiotics for GBS positive status. THIRD STAGE The placenta was delivered without difficulty after 30 minutes and was noted to be intact and with a three vessel cord on examination. IV Pitocin was started after delivery of the placenta. The cervix, vagina and perineum were examined. She had a golf ball sized hematoma in right labia with superficial tear; a left labial tear and bleeding clitoral head; as well as a vaginal laceration with two apeces. OB was consulted to assist with repair. Bleeding post-delivery was minimal. The fundus was firm to palpation. Recommend hematoma evaluation tomorrow to ensure not enlarging. The baby stayed in room with mother. The mother stayed in the delivery room. Sponge, lap, and needle counts were correct at the end of the procedure.
--- NOTE | 2024-06-15 13:44 | W.PM.GYNPROC ---
Procedure Note Time Seen by Provider: 13:30 Date of procedure: 06/15/24 Will [facility] bill your pro fee for this procedure?: Yes Pre-op diagnosis: Normal spontaneous vaginal delivery Periclitoral laceration Right labial hematoma Circumferential laceration of distal vagina to left>right labia Procedure: Periclitoral laceration repair Vaginal repair Left labial laceration repair Anesthesia: local Complications: None Surgeon: Edita Johansen MD Pathology: none sent Condition: stable Disposition: floor Findings: Periclitoral laceration Right labial hematoma Circumferential laceration of distal vagina to left>right labia
--- NOTE | 2024-06-15 13:49 | PM.OBCN1 ---
OB - CN: HPI Date of Consult Time Seen by Provider: 13:30 Date Seen: 06/15/24 Patient: [facility] Patient Consult date: 06/15/24 Requesting Physician: Marylou Dowell MD Primary Care Provider: Marylou Dowell MD Consult Narrative Narrative: The patient is a 28 year old G 1P0 at 41 weeks gestation that was admitted to the Center on 06/14/24 for induction of labor in the setting of late term gestation. was otherwise complicated by maternal anxiety, HSV on suppressive therapy, GBS positive status and THC use in . She had a normal spontaneous vaginal delivery with Dr. Dowell of [facility]. Ob consultation was requested for assessment and repair of her perineal lacerations. One of presented to the bedside, SBAR was provided by Dr. Dowell. There was an apparent right vulvar hematoma, the size of which was reported as stable. She noted she develops significant labial edema during pushing effort which did enlarge immediately after delivery but has been stable since. There is a vaginal laceration and left labial laceration that extends up the entire labial minora with extension to the clitoral region. Patient had an unmedicated vaginal delivery. Dr. Dowell has administered a total of 12 mL of 1% plain lidocaine. History History 3 Elective abortions Para 0 Spontaneous abortions Hx # Term Pregnancies Ectopic pregnancies Hx # Pregnancies Multiple births Number of Living Children 0 Labs Blood type: A (+) positive Rubella: immune RPR/VDLR: nonreactive GBS status: positive HBsAG: negative OB Labs: Lab Assessment Start: 06/14/24 17:50 Freq: ONCE Status: Complete Protocol: PC.OBGBS Activity Type Activity Date Activity User E-sign Co-sign Detail Recorded Client Recorded Date Recorded By Document 06/14/24 18:05 CUDDY Desktop 06/14/24 18:05 CUDDY 06/14/24 18:05 Lab Assessment GBS Status positive Is Patient Allergic to Penicillin? No Treatment Required OK Are Labs Available Yes Maternal Blood Type A Maternal RH Factor Positive Evaluate Maternal Rubella Immune Status Immune Hepatitis B Surface Antigen Negative Maternal HIV Status Negative Maternal Syphillis (RPR) Status Negative [facility] Medical History (Updated 06/14/24 @ 19:13 by Jamie Rascon MD) Irritable bowel syndrome with both constipation and diarrhea ?K58.2 - Mixed irritable bowel syndrome (ICD-10) Migraine headache ?G43.909 - Migraine, unspecified, not intractable, without status migrainosus (ICD-10) Marijuana use ?F12.90 - Cannabis use, unspecified, uncomplicated (ICD-10) Herpes ?B00.9 - Herpesviral infection, unspecified (ICD-10) Depression ?F32.A - Depression, unspecified (ICD-10) Asthma ?J45.909 - Unspecified asthma, uncomplicated (ICD-10) Anxiety ?F41.9 - Anxiety disorder, unspecified (ICD-10) Surgical History History of esophagogastroduodenoscopy (EGD) ?Z98.890 - Other specified postprocedural states (ICD-10) History of colonoscopy ?Z98.890 - Other specified postprocedural states (ICD-10) Social History What is your current living situation?: I presently have a place to live Problems where you live: no known problems In the past 12 months, utilities in danger of being shut off: no In the past 12 mos, have been you worried that your food would run out before you had money to buy more?: never true In the past 12 mos, the food you bought just didn't last and you didn't have money to buy more?: never true Smoking Status: Current every day smoker What tobacco products do you use: cigarettes Smoking packs per day: 0.25 Smoking cigarettes per day: 5.0 Do you use any of these nicotine containing products: Vaping Products Second hand tobacco smoke exposure: Yes How often do you have a drink containing alcohol: never How many standard drinks containing alcohol do you have on a typical day: 3 or 4 AUDIT-C Alcohol total score: 1 Non-prescribed substance use: marijuana (any form) How often does anyone, including family, friends and others, physically hurt you: never How often does anyone, including family, friends and others, insult or talk down to you: never How often does anyone, including family, friends and others, threaten you with harm: never How often does anyone, including family, friends and others, scream or curse at you: never service: No Meds Home Medications and Allergies Home Medications ?Medication ?Instructions ?Recorded ?Confirmed ?Type cholecalciferol (vitamin D3) 50 50 mcg PO DAILY 10/15/23 06/14/24 History mcg (2,000 unit) capsule epinephrine 0.3 mg/0.3 mL 0.3 mg IM PRN allergies 10/15/23 06/14/24 History injection, auto-injector famotidine 40 mg tablet 40 mg PO DAILY 10/15/23 06/14/24 History aspirin 81 mg chewable tablet 1 tab PO DAILY 06/08/24 06/14/24 History buspirone 10 mg tablet 10 mg PO BID 06/08/24 06/14/24 History valacyclovir 500 mg tablet 500 mg PO BID 06/08/24 06/14/24 History Allergies Allergy/AdvReac Type Severity Reaction Status Date / Time bee venom protein (honey bee) Allergy Severe Anaphylaxis Verified 06/14/24 23:36 chocolate flavor Allergy Intermediate Throat Verified 06/14/24 23:36 Swelling escitalopram (From Lexapro) Allergy Mild Hives Verified 06/14/24 23:36 nickel Allergy Mild Hives Verified 06/14/24 23:36 lorazepam AdvReac Mild Unknown Verified 06/14/24 23:36 OB - H&P: Exam Physical Exam: Vital signs: Temp Pulse Resp BP Pulse Ox 98.4 F 79 18 122/61 84 L 06/15/24 11:02 06/15/24 13:47 06/15/24 06:40 06/15/24 13:47 06/15/24 11:28 Narrative: Physical exam was performed revealing the followin cm Left periclitoral laceration, bleeding but noted to be separate from the left labial laceration Right labial hematoma approximately the size of a ping-pong ball, skin overlying this has but is very superficial Circumferential laceration of distal vagina to the right labia where it meets the labial hematoma and extension up the entirety of the left labia minora Explained that I would attempt to repair this at the bedside, pending patient's pain control. Offered injection of sentinel IV for analgesia, patient politely declined. An additional 4mL of 1% lidocaine was injected at the left periclitoral laceration. I started here, as this was actively bleeding where hemostasis was achieved and skin was reapproximated with a single [id number] suture with 4-0 Vicryl. Patient tolerated this well, aside from a burning sensation. I then turned my attention to the left labial my nor laceration. A single [id number] was applied to reapproximate the deeper labial tissue. The skin of the left labia was then closed in a running subcuticular fashion with 4-0 Vicryl to where it met the vaginal introitus. There was noted to be a right and left-sided vaginal laceration apex, just distal to where the tear met the labial components. A 3-0 Vicryl suture was applied in a running locking fashion starting at the left vaginal apex toward the midline. A 2nd 3-0 Vicryl suture was applied in a running locking fashion starting at the right vaginal apex toward the midline. On the right, care was reapproximate the vaginal tissue to the labia but avoid the right-sided stable hematoma. As such, some component of the skin will require healing by secondary intention however this skin separation was very superficial and will easily approximate when her swelling goes down. In addition, I felt this was in her best interest to avoid inciting bleeding of her stable right-sided hematoma. Both of the 3-0 Vicryl were tied at the vaginal midline within the introitus. Repeat exam was completed, where all laceration sites were noted to be appropriately approximated and hemostatic. Fundal massage was performed, excellent uterine tone noted. My exam findings were clearly communicated to Dr. Dowell and Geraldine's bedside nurse, where would recommend urgent re-evaluation if there were noted to be interval enlargement of the right vulvar hematoma or bleeding from any laceration sites. All needles, sponges and instruments were counted and removed from the field. Total QBL to be noted in Dr. Monahan's delivery notes pending counts. Care was resumed by Dr. Dowell. OB - Results Labs Labs: Short CBC 06/14/24 Range/Units 21:48 WBC 12.93 H (4.50-11.00) K/uL Hgb 11.8 L (12.0-16.0) gm/dL Hct 34.6 (33.0-51.0) % Plt Count 189 (140-440) K/uL OB - CN: A/P Assessment and Plan (1) Term : Status: Acute (2) Anxiety: Status: Acute (3) Herpes: Status: Acute (4) Marijuana use: Status: Acute (5) Positive GBS test: Status: Acute Plan Geraldine is a 28-year-old status post normal spontaneous vaginal delivery at 41 weeks following induction of labor for late term gestation. She is an established patient of the [facility] Medicine group, where consultation was requested by Dr. Dowell for perineal laceration repair. Patient was noted to have a left periclitoral laceration (bleeding) and a distal vaginal laceration that extended circumferentially to the right labia minora, where a ping-pong ball sized vulvar hematoma was noted prior to repair. This site remains stable and hemostatic throughout entirety of my repair. The vaginal laceration extended up the entirety of the left labia minora. Repair of all lacerations is described above. Total QBL will be reflected in Dr. Monahan's delivery note pending weighing of sponges. SBAR provided to Dr. Dowell and primary nurse in order to ensure no interval expansion of the right vulvar hematoma or bleeding from laceration sites as her recovery continues. Discussed perineal care and analgesic measures, where I do feel a few doses of oxycodone 5 mg would be appropriate if needed for severe pain given the extent of her lacerations and right vulvar hematoma. Recommended diligent monitoring of the right vulvar hematoma with repeat examination if expansion or to be suspected. Ice pack to be applied. Plan post-delivery Hgb tomorrow morning, sooner as clinically indicated.
--- NOTE | 2024-06-15 14:26 | PC.SOCIAL ---
Social work consult: Completed verbal and written CPS report with [facility] Grief Counsellor due to pt using Marijuana during and testing positive for THC upon admission yesterday. Verbal report was given to Paulina with [employer], phone #[phone] and the written report was faxed to [employer] Intake #[phone]. Social work to follow-up as needed.
--- NOTE | 2024-06-15 14:32 | PC.CPCO ---
Social work consult: Completed verbal and written CPS report with [facility] Clinical Laboratory Aide due to pt using Marijuana during and testing positive for THC upon admission yesterday. Verbal report was given to Paulina with [employer], phone #[phone] and the written report was faxed to [employer] Intake #[phone]. Social work to follow-up as needed.
[2024-06-15] MEDS: IBUPROFEN 600 MG TABLET PO ×2 (16:10→22:35)
[2024-06-15] MEDS: BUSPIRONE 10 MG TABLET PO (22:35)
[2024-06-16 00:39] VITALS: BP 119/76; PULSE 79; RESP 12; TEMP 36.7; O2SAT 99
[2024-06-16] MEDS: ACETAMINOPHEN 500 MG TABLET 1000 MG PO ×3 (01:03→13:56)
[2024-06-16 04:17] VITALS: PULSE 79; RESP 12; TEMP 36.7; O2SAT 99
[2024-06-16] MEDS: IBUPROFEN 600 MG TABLET PO ×3 (04:18→17:32)
[2024-06-16 04:20] VITALS: BP 115/74; PULSE 72; RESP 16; TEMP 36.5; O2SAT 98
--- NOTE | 2024-06-16 06:58 | PM.OBPNVD1 ---
OB - PN:Subj Subjective Time Seen by Provider: 06:58 Date Seen: 06/16/24 Interval history: pt seen in routine rounds. Had precipitous delivery yesterday complicated by right labial hematoma and extensive left labial laceration. pt reports she is doing well. Up and ambulating. pain controlled. Labia seems smaller and improving per pt. pt and RN without concerns. Bottle feding Patient comments OB post-: no complaints, pain well controlled and tolerating diet [place] feeding status: exclusively bottle feeding OB - PN: Obj Exam Physical Exam: Vital signs: Temp Pulse Resp BP Pulse Ox O2 Del Method 97.7 F 72 16 115/74 98 Room Air 06/16/24 04:20 06/16/24 04:20 06/16/24 04:20 06/16/24 04:20 06/16/24 04:20 06/16/24 04:20 Constitutional: Constitutional: no acute distress Routine HEENT Exam: Head: Present normal inspection Eye: Present normal appearance ENT: Present mucous membranes moist Routine Exam: Comments: External genitalia with right labial hematoma, approximately 6cm long x 1.5-2cm wide. Mildly ttp. There are superficial abrasions along medial labia without bleeding. OB - PN: A/P Delivery Assessment and Plan (1) Term : Status: Acute (2) Anxiety: Status: Acute (3) Herpes: Status: Acute (4) Marijuana use: Status: Acute (5) Positive GBS test: Status: Acute Plan Comments: pt s/p induction for postdates with precipitous delivery yesterday at 1127am. delivery complicated by right labial hematoma and left extensive labial tear, repaired by OB. -doing well this morning. Bottlefeeding -hematoma sounds to be clinically improving. pt reports decreased size and decreased pain. Continue ice and monitoring. -hgb this morning still pending, lab aware needs drawn. -hx THC use, cord sent out for drug screen and pedibag in place on baby -GBS+, did not receive adequate treatment so will stay until 48hours for monitoring. Anticipate home tomorrow
[2024-06-16 07:23] LABS: Hemoglobin* 10.4 gm/dL (12.0-16.0)
[2024-06-16] MEDS: BUSPIRONE 10 MG TABLET PO (08:31)
[2024-06-16] MEDS: DOCUSATE SODIUM 100 MG CAPSULE PO (08:31)
[2024-06-16 08:32] VITALS: BP 114/79; PULSE 70; RESP 16; TEMP 36.6
[2024-06-16 14:01] VITALS: BP 125/75; PULSE 82; RESP 16; TEMP 36.6
--- NOTE | 2024-06-16 18:37 | P.DS_ITS ---
DS: Providers Provider Time Seen by Provider: 18:20 Date Seen: 06/16/24 Date of admission: 06/14/24 17:37 Primary care physician: Marylou Dowell MD Admitting Clinician: Jamie Rascon MD Consults: 06/14/24 17:53 Consult to Wood Sawyer [CONS] Routine Comment: Reason for Consult:: Substance Abuse Screening 06/15/24 13:21 Consult to Physician [CONS] Routine Comment: Consulting Provider: Eunice Johansen Has provider been notified: Yes Attending Physician on discharge: Marylou Dowell MD Date of Discharge: 06/16/24 DS: Diagnosis Discharge Diagnosis (1) Term : Status: Acute (2) Marijuana use: Status: Acute Problem details: social worker health services consults (3) (normal spontaneous vaginal delivery): Status: Acute (4) Hematoma of labia majora: Status: Acute Problem details: stable since initially noted immediately after delivery (5) Perineal laceration involving labia: Status: Acute Problem details: 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 Exam Const: Vital Signs, click to edit/add: Vital Signs - 24 hr 06/15/24 19:31 06/16/24 00:39 06/16/24 04:17 Temperature 98.5 F 98.0 F 98.0 F Pulse Rate [Pulse Oximeter] 76 79 79 Respiratory Rate 16 12 12 Blood Pressure [Le ft Arm] 123/77 119/76 Pulse Oximetry 97 99 99 Oxygen Delivery Me thod Room Air Room Air Room Air 06/16/24 04:20 06/16/24 08:32 06/16/24 14:01 Temperature 97.7 F 97.9 F 97.8 F Pulse Rate [Pulse Oximeter] 72 70 82 Respiratory Rate 16 16 16 Blood Pressure [Le ft Arm] 115/74 114/79 125/75 Pulse Oximetry 98 Oxygen Delivery Me thod Room Air Documenting provider has reviewed patient's vital signs: yes Common normals: no apparent distress and healthy appearing General appearance: cooperative and comfortable : Other: Per RN, FF below umbilicus, scant lochia. External exam by myself this morning with 6x2cm right labial hematoma. no active bleeding. OB - DS: Summary Hospital Course Hospital Course: The patient is a 28 year old G 3 P 0 at 41 weeks gestation that was admitted to the Center on 06/14/24 for postdaters induction. SHe received cytotec and then developed tachysystole with late decelerations requiring terbutaline. She then had SROM at 905 on 06/15/23 and transitioned into labor and had precipitous delivery at 1127 on 06/15/24. She had vaginal delivery. She delivered a viable female . Delivery complicated by 1 cm Left periclitoral laceration, bleeding but noted to be separate from the left labial laceration, Right labial hematoma approximately the size of a ping-pong ball, skin overlying this has but is very superficial Circumferential laceration of distal vagina to the right labia where it meets the labial hematoma and extension up the entirety of the left labia minora. Dr Johansen OB surgeon was consulted and repaired lacerations. The labial hematoma stabilized shortly after delivery and pt tolerated well, reporting decrease pain this morning and continued improvement throughout today. She is ambulating, vo iding and tolerating orals without problem. Not requiring any additional pain meds except routine ibuprofen and acetaminophen. patient was known GBS positive without adequate antibiotics due to precipitous delivery. She is bottle feeding. the patient has done well. pt requesting discharge tonight. Peripartum Data Infant delivery method: Vaginal [place] Infant Gender: Female Discharge Plan: Home Time Spent with Patient Time attestation: Total time spent providing and/or coordinating discharge services: Discharge Plan Discharge Disposition: Home, Self-Care Date of Admission: 06/14/24 17:37 Consulting Providers: Eunice Johansen Primary Care Provider: Marylou Dowell Condition: Stable Anticipated Discharge Date/Time: 06/16/24 18:51 Discharge Medications: New docusate sodium 100 mg Capsule 100 mg PO DAILY Qty: 60 0RF Continued cholecalciferol (vitamin D3) 50 mcg (2,000 unit) capsule 50 mcg PO DAILY valacyclovir 500 mg tablet 500 mg PO BID buspirone 10 mg tablet 10 mg PO BID Discontinued famotidine 40 mg tablet 40 mg PO DAILY epinephrine 0.3 mg/0.3 mL auto-injector 0.3 mg IM PRN doxylamine-pyridoxine (vit B6) 10-10 mg tablet,delayed release (DR/EC) 1 tab PO BID Qty: 60 1RF ondansetron 4 mg tablet,disintegrating 4 mg PO Q8H PRN (Reason: nausea and vomiting) Qty: 30 1RF aspirin 81 mg tablet,chewable 1 tab PO DAILY Discharge Orders: Discharge Order (Routine); Ordered 06/16/24 Ordered By: Nelda Fried Patient Education: OB Vaginal/Bottle Feeding Activity Level: Activity as Tolerated Activity Detail: no intercourse or tampons x 6 weeks Discharge Diet: Regular Follow Up Appointments: Marylou Dowell MD [Primary Care Provider] - (schedule 6week visit. Touch base with Dr Dowell at [facility] ) Forms: Really Simple Info Instructions
[2024-06-16 19:00] VITALS: BP 134/83; PULSE 78; RESP 16; TEMP 36.8
[2024-06-17 09:12] LABS: Rapid Plasma Reagin (RPR) Non Reactive (Non Reactive)
--- NOTE | 2024-06-17 11:01 | PC.SOCIAL ---
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 Social work to follow-up as needed.
--- NOTE | 2024-06-17 11:03 | PC.CPCO ---
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 Social work to follow-up as needed.
== END 2024-06-16 19:15 | disposition home or self-care (01) | DRG 560 ==
PROVIDERS: Admitting Provider Surgery; PCP Student in an Organized Health Care Education/Training Program; Visit Provider Student in an Organized Health Care Education/Training Program
DX: O48.0 Post-term pregnancy (principal); O62.4 Hypertonic, incoordinate, and prolonged uterine contractions; O71.7 Obstetric hematoma of pelvis; O71.4 Obstetric high vaginal laceration alone; O71.82 Other specified trauma to perineum and vulva; O62.3 Precipitate labor; O99.824 Streptococcus B carrier state complicating childbirth; O99.344 Other mental disorders complicating childbirth; F41.9 Anxiety disorder, unspecified; O99.324 Drug use complicating childbirth; F12.90 Cannabis use, unspecified, uncomplicated; O98.32 Other infections with a predominantly sexual mode of transmission complicating childbirth; A60.09 Herpesviral infection of other urogenital tract; Z3A.40 40 weeks gestation of pregnancy; Z37.0 Single live birth
CPT/HCPCS: 36415; 59200; 76815; 80306; 85018; 85025; 86592; 86850; 86900; 86901; A9270; J0290; J2270; J2371; J2405; J3010; J3105; J7120

== ENCOUNTER 2024-06-19 22:35 | Emergency (ER) | payer BC, SELFPAY ==
[2024-06-19 22:43] VITALS: BP 151/80; PULSE 89; RESP 20; TEMP 36.7; O2SAT 99; BMI 35.0
--- NOTE | 2024-06-19 22:43 | ED.FEMALEGU ---
HPI - Female Genitourinary General Time Seen by Provider: 22:43 Date Seen: 06/19/24 Chief complaint: Post OB/Post- Complication Stated complaint: sent by OB Time Seen by Provider: 06/19/24 22:38 Source: patient and RN notes reviewed Mode of arrival: ambulatory Limitations: no limitations History of Present Illness HPI Narrative: This 28-year-old female is coming in with perineal pain, right side worse than the left after delivery. Patient was a post-dates induction at 41 weeks on 06/14/2024. She initially had sided tack, developed tachy systole with late deceleration is a requiring terbutaline. She had spontaneous rupture of membranes on 06/15/2023. There was a precipitous delivery at 11:27 a.m. on 06/15/2024. She had a vaginal delivery complicated by 1 cm left periclitoral laceration, left labial laceration, right labial hematoma about the size of a ping-pong ball, circumferential laceration of the distal vagina to the right labia where it meets the labial hematoma and extension up the entirety of the left labia minora. OB Gyne repaired these lacerations. Patient is not , does chronically use marijuana. She has had a little nausea from the pain, no fevers. She has been using the pamela bottle, ice packs, Tylenol and ibuprofen. She has been trying to keep her bottom clean with showering. There have been no fevers. She is able to urinate and have bowel movements although bowel movements are painful. She has ongoing vaginal bleeding but not excessive. She states she is just having burning type pain in the perineum, is worse in the morning and at night. Patient requested discharge on 06/16. Related Data Home Medications ?Medication ?Instructions ?Recorded ?Confirmed cholecalciferol (vitamin D3) 50 50 mcg PO DAILY 10/15/23 06/19/24 mcg (2,000 unit) capsule buspirone 10 mg tablet 10 mg PO BID 06/08/24 06/19/24 valacyclovir 500 mg tablet 500 mg PO BID 06/08/24 06/19/24 aspirin 81 mg chewable tablet 1 tab PO DAILY 06/19/24 06/19/24 Previous Rx's ?Medication ?Instructions ?Recorded docusate sodium 100 mg capsule 100 mg PO DAILY #60 caps 06/16/24 Allergies Allergy/AdvReac Type Severity Reaction Status Date / Time bee venom protein (honey bee) Allergy Severe Anaphylaxis Verified 06/19/24 22:45 chocolate flavor Allergy Intermediate Throat Verified 06/19/24 22:45 Swelling escitalopram (From Lexapro) Allergy Mild Hives Verified 06/19/24 22:45 nickel Allergy Mild Hives Verified 06/19/24 22:45 lorazepam AdvReac Mild Unknown Verified 06/19/24 22:45 Review of Systems Status of ROS: Reports: 6 or more systems reviewed and unremarkable except as noted in History and below [facility] Medical History Irritable bowel syndrome with both constipation and diarrhea ?K58.2 - Mixed irritable bowel syndrome (ICD-10) Migraine headache ?G43.909 - Migraine, unspecified, not intractable, without status migrainosus (ICD-10) Marijuana use ?F12.90 - Cannabis use, unspecified, uncomplicated (ICD-10) Herpes ?B00.9 - Herpesviral infection, unspecified (ICD-10) Depression ?F32.A - Depression, unspecified (ICD-10) Asthma ?J45.909 - Unspecified asthma, uncomplicated (ICD-10) Anxiety ?F41.9 - Anxiety disorder, unspecified (ICD-10) Surgical History History of esophagogastroduodenoscopy (EGD) ?Z98.890 - Other specified postprocedural states (ICD-10) History of colonoscopy ?Z98.890 - Other specified postprocedural states (ICD-10) Social History What is your current living situation?: I presently have a place to live Problems where you live: no known problems In the past 12 months, utilities in danger of being shut off: no In the past 12 mos, have been you worried that your food would run out before you had money to buy more?: never true In the past 12 mos, the food you bought just didn't last and you didn't have money to buy more?: never true Smoking Status: Current every day smoker What tobacco products do you use: cigarettes Smoking packs per day: 0.25 Smoking cigarettes per day: 5.0 Do you use any of these nicotine containing products: Vaping Products Second hand tobacco smoke exposure: Yes How often do you have a drink containing alcohol: never How many standard drinks containing alcohol do you have on a typical day: 3 or 4 AUDIT-C Alcohol total score: 1 Non-prescribed substance use: marijuana (any form) How often does anyone, including family, friends and others, physically hurt you: never How often does anyone, including family, friends and others, insult or talk down to you: never How often does anyone, including family, friends and others, threaten you with harm: never How often does anyone, including family, friends and others, scream or curse at you: never service: No Exam Const: Vital Signs, click to edit/add: Vital Signs - 24 hr 06/19/24 22:43 Temperature 98.0 F Pulse Rate [Right Pulse Oximeter] 89 Respiratory Rate 20 Blood Pressure [Ri ght Upper Arm] 151/80 H Pulse Oximetry 99 Oxygen Delivery Me thod Room Air This 28-year-old female is alert, interactive, no apparent distress but does seem uncomfortable. She is ambulating slowly but is able to ambulate. On inspection for perineum, do note some bruising along the inner posterior buttock area. There is a little darkish blood at the vaginal introitus, can see some sutures along the posterior vaginal wall, no concerning discharge, no odor. The left labia minora it is swollen but not erythematous, minimally tender. She is generally more swollen and more tender along the right labia majora which does look like there is bruising along the mid to posterior aspect of this. The labia majora on the right side is definitely more swollen but I do not note a discrete hematoma at this time, feels to be just more generalized swelling. I certainly do not find definitive hematoma. There is no fluctuant area. She has some mild tenderness. Some of the peroneal structures obviously have some swelling but nothing looks erythematous, no purulent discharge, have no concerns with infection at this time. No speculum or bimanual exam will be done. Abdomen is nontender. No inguinal adenopathy noted. Overall, she appears pale but is alert, interactive, no apparent distress. CV regular rate and rhythm, no murmur, normal S1-S2 come no S3-S4. Uterus is firm, nontender, below umbilicus, no abdominal discomfort or tenderness on palpation. Documenting provider has reviewed patient's vital signs: yes Course Course ED Course: Patient is actually quite reassured that her perineum is looking reasonably well to me given what her reports are that she recently went through. It seems as the hematoma is already resolving. She might be having pain from tissues absorbing and resolving blood, bruising happening and just generalized tissue trauma from the the injury itself and then the repair. Am reassured clinically that there is no appearance of infection. Discussed doing a CBC to ensure that her hemoglobin and white blood count are stable. We did discuss doing pelvic CT imaging but clinically I do really do not feel that it is going to change our management at this point. She actually does seem quite stable and I would anticipate that she is going to have some significant pain with what she underwent. She is chronic marijuana user. Reevaluation(s) Time of Reevaluation #1: 23:08 Reevaluation #1: Recheck blood pressure is 139/91. Patient admits that she has bad anxiety and was anxious on arrival. Review of her chart in OB shows discharge BP 134/83. Pressures were mostly 120-130's during labor, some in the 110 range. Her initial blood pressure was right after she walked back into the room. Time of Reevaluation #2: 23:20 Reevaluation #2: Have reviewed with patient that her white blood count is normal, hemoglobin is stable at 10, discharge hemoglobin was 10.4. I see no evidence of any concern for active pelvic bleeding, the labial hematoma does not seem to be worsening on my examination, no evidence of infection clinically. She is reassured, feels better. She is accepting and understanding that there will be pain in the perineum as this heals up but she feels better that nothing worse is happening at this time. She does report that she has a follow-up with Dr. Dowell tomorrow. Vital Signs Vital signs: Initial Vital Signs Temperature 98.0 F 06/19/24 22:43 Temperature Source Temporal Artery Scan 06/19/24 22:43 Pulse Rate 89 06/19/24 22:43 Respiratory Rate 20 06/19/24 22:43 Blood Pressure 151/80 H 06/19/24 22:43 Blood Pressure Mean 103 06/19/24 22:43 Blood Pressure Position Sitting 06/19/24 22:43 Pulse Oximetry 99 06/19/24 22:43 Oxygen Delivery Method Room Air 06/19/24 22:43 Vital Signs Temperature 98.0 F 06/19/24 22:43 Pulse Rate 89 06/19/24 22:43 Respiratory Rate 20 06/19/24 22:43 Blood Pressure 151/80 H 06/19/24 22:43 Pulse Oximetry 99 06/19/24 22:43 Oxygen Delivery Method Room Air 06/19/24 22:43 Temperature 98.0 F 06/19/24 22:43 Pulse Rate 89 06/19/24 22:43 Respiratory Rate 20 06/19/24 22:43 Blood Pressure 151/80 H 06/19/24 22:43 Pulse Oximetry 99 06/19/24 22:43 Oxygen Delivery Method Room Air 06/19/24 22:43 MDM - Female Genitourinary Lab Data Attestation: I reviewed the patient's lab results. Labs: Lab Results 06/19/24 Range/Units 23:00 WBC 7.83 (4.50-11.00) K/uL RBC 3.11 L (4.00-5.20) m/uL Hgb 10.0 L (12.0-16.0) gm/dL Hct 30.1 L (33.0-51.0) % MCV 97 (80-100) fL MCH 32 (26-34) pg MCHC 33 (32-36) gm/dL RDW Coeff of Courtney 13.7 (11.5-15.5) % Plt Count 224 (140-440) K/uL Neut % (Auto) 55.8 (42.0-72.0) % Lymph % (Auto) 31.5 (20-44) % [place] % (Auto) 8.2 (0.0-11.0) % Eos % (Auto) 3.3 (0.0-7.0) % Baso % (Auto) 0.3 (0.0-3.0) % Neut # (Auto) 4.37 (1.7-7.0) K/uL Lymph # (Auto) 2.47 (0.90-2.90) K/uL [place] # (Auto) 0.60 (0.00-0.90) K/UL Eos # (Auto) 0.26 (0.00-0.50) K/uL Baso # (Auto) 0.02 (0.00-0.30) K/uL Abs Immat Gran (auto) 0.07 (0.00-0.30) K/uL Imm/Tot Granulo (auto) 0.9 % Discharge Plan Discharge Clinical Impression: Hematoma of labia majora Perineal laceration involving labia Qualifiers: Encounter type: initial encounter Qualified Code(s): S31.41XA - Laceration without foreign body of vagina and vulva, initial encounter Patient Disposition: Home, Self-Care Condition: Stable Instructions: Hematoma (ED), Perineal Tear with Delivery (DC) Additional Instructions: Continue with current cares, alternate Tylenol and ibuprofen, ice. Please follow up in clinic with your physician tomorrow, have perineum rechecked, recheck blood pressure. Continue to monitor for fever, infection, please seek re-evaluation if you have concerns. Prescriptions: No Action docusate sodium 100 mg Capsule 100 mg PO DAILY Qty: 60 0RF aspirin 81 mg tablet,chewable 1 tab PO DAILY cholecalciferol (vitamin D3) 50 mcg (2,000 unit) capsule 50 mcg PO DAILY valacyclovir 500 mg tablet 500 mg PO BID buspirone 10 mg tablet 10 mg PO BID Follow Up/Referrals: Marylou Dowell MD [Primary Care Provider] - Stand Alone Forms: [employer] Info Instructions
[2024-06-19 23:08] LABS: Basophils Absolute Auto 0.02 K/uL (0.00-0.30); Basophils Percent Auto 0.3 % (0.0-3.0); Eosinophils Absolute Auto 0.26 K/uL (0.00-0.50); Eosinophils Percent Auto 3.3 % (0.0-7.0); Hematocrit 30.1 % (33.0-51.0); Immature Granulocytes Abs Auto 0.07 K/uL (0.00-0.30); Immature Granulocytes Pct Auto 0.9 %; Lymphocytes Absolute Auto 2.47 K/uL (0.90-2.90); Lymphocytes Percent Auto 31.5 % (20-44); Mean Corpuscular HGB Conc 33 gm/dL (32-36); Mean Corpuscular Hemoglobin 32 pg (26-34); Mean Corpuscular Volume 97 fL (80-100); Monocytes Percent Auto 8.2 % (0.0-11.0); Neutrophils Absolute Auto 4.37 K/uL (1.7-7.0); Neutrophils Percent Auto 55.8 % (42.0-72.0); Platelet Count* 224 K/uL (140-440); RDW Coefficient of Variation % 13.7 % (11.5-15.5); Red Blood Count 3.11 m/uL (4.00-5.20); White Blood Count* 7.83 K/uL (4.50-11.00)
[2024-06-19 23:14] LABS: Slide Review Reflex No
[2024-06-19 23:30] VITALS: BP 141/74; PULSE 81; RESP 20; TEMP 36.7; O2SAT 99
[2024-06-19 23:31] VITALS: BP 141/74; PULSE 81; RESP 20; TEMP 36.7
== END 2024-06-19 23:31 | disposition home or self-care (01) ==
PROVIDERS: Emergency Provider Family Medicine; PCP Student in an Organized Health Care Education/Training Program
DX: S31.41XA Laceration without foreign body of vagina and vulva, initial encounter (principal)
CPT/HCPCS: 36415; 85025; 99283